=== PATIENT | female | born 1945 | race Caucasian/White ===

== ENCOUNTER → 2017-09-21 08:34 | Outpatient (CLI) | payer MEDICARE, OTHER, SELFPAY ==
[2017-09-21 10:15] LABS: Cholesterol 142 mg/dL (200); High Density Lipoprotein 41 mg/dL; Thyroid Stim Hormone (TSH) 2.22 uIU/mL (0.358-3.74); Triglycerides 114 mg/dL; Very Low Density Lipoprotein 23 mg/dL (5-40)
== END ==
PROVIDERS: Family Provider Family Medicine; PCP Family Medicine; Visit Provider Family Medicine
DX: E03.9 Hypothyroidism, unspecified (principal); E78.00 Pure hypercholesterolemia, unspecified
CPT/HCPCS: 36415; 80061; 84443

== ENCOUNTER → 2017-10-31 08:16 | Outpatient (CLI) | payer MEDICARE, OTHER, SELFPAY ==
--- NOTE | 2017-10-31 08:16 | DT_ITS ---
This patient was seen during an EMR downtime October 31, 2017 - November 07, 2017. This patient may have a combination of paper and electronic documentation or all paper documentation. All documentation is viewable within the e-chart portion of [facility] for each patient visit.
[2017-11-06 04:31] LABS: Cholesterol 142 mg/dL (200); High Density Lipoprotein 39 mg/dL; Triglycerides 118 mg/dL; Very Low Density Lipoprotein 24 mg/dL (5-40)
== END ==
PROVIDERS: Family Provider Family Medicine; PCP Family Medicine; Visit Provider Family Medicine
DX: E78.00 Pure hypercholesterolemia, unspecified (principal)
CPT/HCPCS: 36415; 80061

== ENCOUNTER → 2017-11-02 11:47 | Outpatient (CLI) | payer MEDICARE, OTHER, SELFPAY ==
--- NOTE | 2017-11-02 11:47 | RAD_ITS ---
STUDY: X-RAY - LEFT ANKLE REASON FOR EXAM: Female, 72 years old. Lateral ankle pain and bruising. Recent fall. TECHNIQUE: 3 view(s) of the ankle. COMPARISON: None. FINDINGS: Normal visualized distal tibia and fibula. Normal medial and lateral malleoli. Normal tibiotalar articulation and ankle mortise. Normal visualized talus and calcaneus. There is evidence of osseous densities along the lateral aspect of the talus and calcaneus without obvious fracture. The visualized subtalar, talonavicular, calcaneocuboid and tarsal articulations are normal. There is marked lateral soft tissue swelling extending into the hindfoot. RAD/Ankle min 3 Views IMPRESSION: Lateral soft tissue swelling of the ankle. There are bony densities along the lateral aspect of the hindfoot and avulsions cannot BE completely ruled out. Electronically Signed: Robert Keenan DO at 15:42 EDT Tel [phone], Service support ,
--- NOTE | 2017-11-02 11:47 | DT_ITS ---
This patient was seen during an EMR downtime October 31, 2017 - November 07, 2017. This patient may have a combination of paper and electronic documentation or all paper documentation. All documentation is viewable within the e-chart portion of [facility] for each patient visit.
== END ==
PROVIDERS: Family Provider Family Medicine; PCP Family Medicine; Visit Provider Family Medicine
DX: S93.402S Sprain of unspecified ligament of left ankle, sequela (principal)
CPT/HCPCS: 73610

== ENCOUNTER → 2018-05-16 12:54 | Outpatient (CLI) | payer MEDICARE, OTHER, SELFPAY ==
[2018-05-04 15:59] VITALS: BMI 27.6
--- NOTE | 2018-05-16 12:56 | ECHODONC_ITS ---
Reason For Study: HTN Procedure This was a 2D Doppler, Color Flow transthoracic echocardiogram. Myocardial strain analysis was performed in this exam to aid in the assessment of cardiac function. Exam performed in department. Left Ventricle Normal LV size. Left ventricular systolic function is normal. The estimated ejection fraction is 65 %. Normal diastology for age. The global longitudinal strain is normal. The global longitudinal strain = -24.6 % (normal). No regional wall motion abnormalities noted. Right Ventricle Normal RV size. Normal systolic function. Atria Normal left atrium. Normal right atrium. Mitral Valve Normal mitral valve. Mild (1+) eccentric mitral valve insufficiency. Tricuspid Valve Normal tricuspid valve. Mild (1+) tricuspid valve insufficiency. Aortic Valve Normal aortic valve. Trisinus/trileaflet aortic valve. Pulmonic Valve Normal pulmonic valve. Great Vessels Normal aortic root. The pulmonary artery is normal size. Normal inferior vena cava. Pericardium/Pleural No pericardial effusion. MMode/2D Measurements & Calculations LVIDd: 4.4 cm IVSd: 0.88 cm Ao root diam: 3.8 cm LVIDs: 2.8 cm LVPWd: 0.86 cm RVDd: 3.2 cm FS: 35.3 % LAV(MOD-bp): 66.7 ml LVAd ap4: 28.9 cm2 EDV(MOD-sp2): 95.2 ml LAV(MOD-bp) Indexed: 34.1 ml/m2 EDV(MOD-sp4): 94.2 ml EF(MOD-sp2): 60.0 % LAV(MOD-sp2): 67.7 ml EDV(sp4-el): 86.3 ml LAV(MOD-sp4): 65.5 ml LVAs ap4: 15.6 cm2 ESV(MOD-sp4): 33.1 ml ESV(sp4-el): 34.3 ml EF(MOD-sp4): 64.9 % EF(sp4-el): 60.2 % SV(MOD-sp4): 61.2 ml SV(MOD-sp2): 57.1 ml SV(sp4-el): 52.0 ml LA dimension(2D): 3.8 cm LA A4 area: 22.3 cm2 RA A4 area: 13.7 cm2 Time Measurements MV dec time: 0.39 sec Doppler Measurements & Calculations MV E max jean: 97.5 cm/sec Lat Peak E' Jean: 11.3 cm/sec Med Peak E' Jean: 6.7 cm/sec MV A max jean: 89.9 cm/sec E/E' lat: 8.6 E/E' med: 14.5 MV E/A: 1.1 LV V1 max: 120.9 cm/sec PA V2 max: 90.4 cm/sec TR max jean: 260.9 cm/sec LV V1 max P.8 mmHg TR max P.3 mmHg Interpretation Summary Normal LV size. Left ventricular systolic function is normal. The estimated ejection fraction is 65 %. Normal diastology for age. Mild (1+) tricuspid valve insufficiency. The global longitudinal strain = -24.6 % (normal). Ordering Physician: Dimitri Morales Referring Physician: NOLAN SMITH Performed By: Airam Smith RDCS, RVT
--- OUTSIDE RECORDS SUMMARY | 2018-08-17 23:02 | XMS RPT_ITS ---
:1945 Author Organization OHIP Support Name Relationship Address Phone AFIA CARDOZA Unavailable [address] + [place] [address] R Unavailable Unavailable Unavailable NANI, AFIA Unavailable [address] + [place] [address] R Unavailable Unavailable Unavailable NANI, AFIA Unavailable [address] + [place] [address] R Unavailable Unavailable Unavailable NANI, AFIA Unavailable [address] + [place] [address] R Unavailable Unavailable Unavailable NANI, AFIA Unavailable [address] + [place] [address] R Unavailable Unavailable Unavailable NAIN, AFIA Unavailable [address] + [place] [address] R Unavailable Unavailable Unavailable NANI, AFIA Unavailable [address] + [place] [address] R Unavailable Unavailable Unavailable NANI, AFIA Unavailable [address] + [place] [address] R Unavailable Unavailable Unavailable NANI, AFIA Unavailable [address] + [place] [address] R Unavailable Unavailable Unavailable NANI, AFIA Unavailable [address] + [place] [address] R Unavailable Unavailable Unavailable NANI, AFIA Unavailable [address] + [place] [address] R Unavailable Unavailable Unavailable NANI, AFIA Unavailable [address] + [place] [address] R Unavailable Unavailable Unavailable NANI, AFIA Unavailable [address] + [place] [address] R Unavailable Unavailable Unavailable Care Team Providers Name Role Phone ISCKARUS, MANSOUR Referring Unavailable Carmen, Ramona Attending Unavailable Carmen, Dimitri Referring Unavailable Kahn, Nolan Primary Care Unavailable Carmen, Ramona Attending Unavailable Carmen, Dimitri Referring Unavailable Judah, Vanda Attending Unavailable Kahn, Nolan Referring Unavailable Isckarus, Mansour Attending Unavailable Kahn, Nolan Primary Care Unavailable Kahn, Nolan Referring Unavailable Isckarus, Mansour Attending Unavailable Kahn, Nolan Referring Unavailable Kahn, Nolan Primary Care Unavailable Isckarus, Mansour Consulting Unavailable Rob Veronica Attending Unavailable Kahn, Nolan Referring Unavailable Kahn, Nolan Primary Care Unavailable Kahn, Nolan Attending Unavailable Kahn, Nolan Primary Care Unavailable Kahn, Nolan Attending Unavailable Kahn, Nolan Referring Unavailable Kahn, Nolan Primary Care Unavailable Kahn, Nolan Attending Unavailable Kahn, Nolan Primary Care Unavailable Isckarus, Mansour Attending Unavailable Kahn, Nolan Referring Unavailable Kahn, Nolan Primary Care Unavailable Isckarus, Mansour Consulting Unavailable Carmen, Ramona Attending Unavailable Kahn, Nolan Referring Unavailable Carmen, Dimitri Attending Unavailable Kahn, Nolan Referring Unavailable Kahn, Nolan Primary Care Unavailable Judah, Vanda Attending Unavailable Kahn, Nolan Referring Unavailable Kahn, Nolan Primary Care Unavailable PROBLEMS PROBLEMS DATE TYPE CONDITION / CODE ATTENDING STATUS SOURCE 06/19/2018 Unknown Z78.0 - Asymptomatic [place], Vanda Active [facility] menopausal state / Community Z78.0(ICD-10) Hospital Repository 05/04/2018 Unknown R00.2 - Palpitations Carmen, Ramona Active [facility] / R00.2(ICD-10) Community Hospital Repository 05/04/2018 Unknown I10 - Essential Carmen, Ramona Active [facility] (primary) Community hypertension / Hospital I10(ICD-10) Repository 05/04/2018 Unknown C50.511 - Malignant Carmen, Dimitri Active [place] neoplasm of [facility] lower-outer quadrant Hospital of right female Repository breast / C50.511(ICD-10) 02/09/2018 Unknown C50.911 - Malignant Isckarus, Active [place] [facility] right female breast Repository / C50.911(ICD-10) 11/23/2017 Unknown S93.402S - Sprain of Nolan Kahn Active [place] unspecified ligament Community of left ankle, Hospital sequela / Repository S93.402S(ICD-10) 11/23/2017 Unknown E78.00 - Pure Nolan Kahn Active [place] hypercholesterolemia Community , unspecified / Hospital E78.00(ICD-10) Repository 09/21/2017 Unknown E03.9 - Femi, Nolan Active [facility] Hypothyroidism, Community unspecified / Hospital E03.9(ICD-10) Repository 07/28/2017 Active Unknown / NA Active [facility](Unknown[facility] [place] Repository 06/13/2017 Unknown Z01.419 - Encounter [place] Active [place] for gynecological [facility] examination [facility] (general) (routine) Repository without abnormal findings / Z01.419(ICD-10) 06/13/2017 Unknown M85.80 - Other JudahVanda quiñones Active [place] specified disorders Community of bone density and Hospital structure, Repository unspecified site / M85.80(ICD-10) 06/13/2017 Unknown N95.2 - Vanda So Active [place] Postmenopausal Community atrophic vaginitis / Hospital N95.2(ICD-10) Repository 05/05/2017 Unknown Z17.0 - Estrogen Carmen, Dimitri Active [facility] receptor positive Community status [ER+] / Hospital Z17.0(ICD-10) Repository PROCEDURES PROCEDURES No Procedure Records FoundRESULTS RESULTS 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 [address] [place] [address] OFFICE VISIT Date of Service: 06/19/18 MR#: [id number] Acct: [id number] Name: LUCILLE CARDOZA Eliz Rep #: [id number] : 1945 Provider: LIYAH So Age/Sex: 72/F [place] [facility] [place]: Signed Intake Vital Signs06/19/18 Body Mass Index (BMI) 27.6 06/19/18 Height 5 ft 8 in 06/19/18 Weight: 183 lb 8 oz 06/19/18 Body Mass Index (BMI) 27.8 06/19/18 Blood Pressure 144/86 H Intake Visit Reasons: ANNUAL Bacon Skin Lifter Required: No Is patient in pain?: No Allergies Sulfa (Sulfonamide Antibiotics) Adverse Reaction (Severe, Verified 06/19/18 10:15) Nausea/Vom/Diarrhea Medications Levothyroxine Sodium [Levoxyl] 50 mcg PO DAILY 08/25/16 [History Confirmed 06/19/18] Multivitamin [Multiple Vitamins] 1 tab PO DAILY 08/25/16 [History Confirmed 06/19/18] B-complex with vitamin C tablet 1 tab PO QDAY 05/05/17 [History Confirmed 06/19/18] calcium carbonate-vitamin D3 1,000 mg (2,500 mg)-800 unit tablet 1 tab PO DAILY 05/05/17 [History Confirmed 06/19/18] cholecalciferol (vitamin D3) 1,000 unit capsule 1,000 unit PO ONCE 05/05/17 [History Confirmed 06/19/18] Letrozole [Femara] 2.5 mg PO DAILY 90 Days #90 tab 06/05/18 [Rx Confirmed 06/19/18] metoprolol tartrate 50 mg tablet 50 mg PO BID #180 tab 06/05/18 [Rx Confirmed 06/19/18] Is last menstrual period known: No Post menopausal: Yes Patient : No : No PFSH Medical History Hyperlipidemia (Chronic) Palpitations (Chronic) History of paroxysmal supraventricular tachycardia (Chronic) 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 (Chronic) HTN (hypertension) (Chronic) Osteopenia (Chronic) Left ankle sprain (Acute) Surgical History H/O lumpectomy (Acute) Family History Mother CVA (cerebral vascular accident) Father Dementia Social History Smoking Status: Never smoker alcohol intake: current details: social substance use type: does not use caffeine: Yes what type of physical activity do you participate in: walking, weight training frequency: 3-4 times per week seatbelt use: always do you feel safe at home: Yes 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 DateName GA/Weeks Outcome Route Bth WeighInfant GeLabor LgtAnesthesiDel LocatProvider FOB t n h a n HPI ANNUAL: Details: LUCILLE CARDOZA is a 72 year old who presents for annual exam. History of abnormal PAP: no Last mammogram: scheduled in July per oncologist History of abnormal mammogram: breast cancer right 2009;lumpectomy with chemo and radiation, on femara Colon cancer screening: less then 10 years BMD 2017 worsening osteopenia, will order Female Reproductive History Questions: Metorrhagia: No, Sexually active: No, Dyspareunia: No, PCB: No ROS Const Constitutional: Denies fatigue, weight gain or weight loss Cardio Card: Denies chest pain Resp Resp: Denies cough or shortness of breath with activity GI GI: Denies abdominal pain, constipation, change in stools, vomiting or bloating : Reports as per HPI; denies urinary frequency, pelvic pain, urinary urgency, vaginal discharge, vaginal itching, urinary incontinence or difficulty urinating Exam Const General: cooperative, healthy appearing, no acute distress, well developed Orientation: alert, oriented to person, oriented to place HENWV Head: normal to inspection Neck Neck: normal visual inspection Thyroid: thyroid normal Lymphatic: no lymphadenopathy noted Chest Breast inspection: normal inspection of the breasts, normal inspection of the axillae Breast palpation: normal palpation of the breasts, normal palpation of the axillae, no axillary lymphadenopathy Resp Effort AND Inspection: normal respiratory effort GI Palpation: soft, nontender, no masses Rectal Exam: deferred External Female Exam: normal external appearance, normal appearance of the urethra (slightly dilated. No caruncle) Urethra: normal appearance of the urethra (slightly dilated. No caruncle), normal palpation Speculum Exam - Vagina: normal vaginal discharge, atrophic vaginal mucosa Speculum Exam - Cervix: normal appearance of the cervix Bimanual Exam- Vagina AND Uterus: normal bimanual exam, uterine size normal, uterine shape normal, uterus non-tender Bimanual Exam- Adnexa, other: normal adnexae, no adnexal masses, adnexae non-tender, pelvic support normal Pelvic Support: normal Neuro General: alert, oriented x3 Psych Affect: normal affect Assessment AND Plan Problems 1. Encounter for gynecological examination with abnormal finding Z01.411 2. Atrophic vaginitis N95.2 3. Osteopenia, unspecified location M85.80 4. 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 Orders Orders: Coding Level of Care Code Pelvic/Breast Diagnoses Encounter for gynecological examination with abnormal finding Z01.411 Gynecological examination findings: abnormal findings PRESENT Atrophic vaginitis N95.2 Osteopenia, unspecified location M85.80 Osteopenia location: unspecified Malignant neoplasm of lower-outer quadrant of right 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, estrogen receptor positive C50.511 Breast location: lower outer quadrant of breast Estrogen receptor status: positive 06/19/18 1058 <Electronically signed by Vanda DE SOUZA> Date Vanda DE SOUZA Cosigner Signature: Date (if applicable) CC: ONC ECHOCARDIOGRAM Observed: 05/16/2018 Status: F Source: [place] COMPLETE 2:45 PM [facility] Cardiovascular Services [address] [place] [id number] ONC Echo Complete 05/16/18 1257 MR#: [id number] Acct: [id number] Name: LUCILLE CARDOZA Rep #: [id number] : 1945 72 From: Dimitri Morales MD Attending Dr: Dimitri Morales MD Status: REG CLI Ordering Dr: Dimitri Morales MD Date: 05/16/18 Location: [facility] Sex: F C Admitted: Reason For Study: HTN Procedure This was a 2D Doppler, Color Flow transthoracic echocardiogram. Myocardial strain analysis was performed in this exam to aid in the assessment of cardiac function. Exam performed in department. Left Ventricle Normal LV size. Left ventricular systolic function is normal. The estimated ejection fraction is 65 %. Normal diastology for age. The global longitudinal strain is normal. The global longitudinal strain = -24.6 % (normal). No regional wall motion abnormalities noted. Right Ventricle Normal RV size. Normal systolic function. Atria Normal left atrium. Normal right atrium. Mitral Valve Normal mitral valve. Mild (1+) eccentric mitral valve insufficiency. Tricuspid Valve Normal tricuspid valve. Mild (1+) tricuspid valve insufficiency. Aortic Valve Normal aortic valve. Trisinus/trileaflet aortic valve. Pulmonic Valve Normal pulmonic valve. Great Vessels Normal aortic root. The pulmonary artery is normal size. Normal inferior vena cava. Pericardium/Pleural No pericardial effusion. MMode/2D Measurements AND Calculations LVIDd: 4.4 cm IVSd: 0.88 cm Ao root diam: 3.8 cm LVIDs: 2.8 cm LVPWd: 0.86 cm RVDd: 3.2 cm FS: 35.3 % LAV(MOD-bp): 66.7 ml LVAd ap4: 28.9 cm2 EDV(MOD-sp2): 95.2 ml LAV(MOD-bp) Indexed: 34.1 ml/m2 EDV(MOD-sp4): 94.2 ml EF(MOD-sp2): 60.0 % LAV(MOD-sp2): 67.7 ml EDV(sp4-el): 86.3 ml LAV(MOD-sp4): 65.5 ml LVAs ap4: 15.6 cm2 ESV(MOD-sp4): 33.1 ml ESV(sp4-el): 34.3 ml EF(MOD-sp4): 64.9 % EF(sp4-el): 60.2 % SV(MOD-sp4): 61.2 ml SV(MOD-sp2): 57.1 ml SV(sp4-el): 52.0 ml LA dimension(2D): 3.8 cm LA A4 area: 22.3 cm2 RA A4 area: 13.7 cm2 Time Measurements MV dec time: 0.39 sec Doppler Measurements AND Calculations MV E max jean: 97.5 cm/sec Lat Peak E' Jean: 11.3 cm/sec Med Peak E' Jean: 6.7 cm/sec MV A max jean: 89.9 cm/sec E/E' lat: 8.6 E/E' med: 14.5 MV E/A: 1.1 LV V1 max: 120.9 cm/sec PA V2 max: 90.4 cm/sec TR max jean: 260.9 cm/sec LV V1 max P.8 mmHg TR max P.3 mmHg Interpretation Summary Normal LV size. Left ventricular systolic function is normal. The estimated ejection fraction is 65 %. Normal diastology for age. Mild (1+) tricuspid valve insufficiency. The global longitudinal strain = -24.6 % (normal). Ordering Physician: Dimitri Morales Referring Physician: NOLAN KAHN Performed By: Airam Smith, GM, RVT 05/16/18 1444 Date Dimitri Morales MD CC: Dimitri Morales MD; Nolan Kahn MD Date Dictated: 05/16/18 1257 Date Transcribed: 05/16/181443 Farm Labor Contractor: Signed CARDIOLOGY VISIT Observed: 05/04/2018 Status: F Source: [place] REPORT 4:29 PM [facility] RE[facility] [address] [facility] [place] [address] OFFICE VISIT Date of Service: 05/04/18 MR#: [id number] Acct: [id number] Name: LUCILLE CARDOZA Rep #: [id number] : 1945 Provider: Dimitri Morales MD Age/Sex: 72/F [place] [facility] [place]: Signed HPI HPI Chief Complaint: Follow up Details: LUCILLE CARDOZA, is a 72 F who presents to the office today for a follow-up visit. She is a lady with a history of supraventricular tachyarrhythmia, breast carcinoma status post chemotherapy and surgery. She returns for routine follow- up visit she has had no chest pain or shortness breath or paroxysmal nocturnal dyspnea or pedal edema she has had no neck arm or jaw discomfort suggest angina. She is been compliant with her medications. Her physical exam demonstrates clear lung paniagua regular rate and rhythm and no pedal edema. Intake Vital Signs05/04/18 Height 5 ft 8 in 05/04/18 Weight: 182 lb 05/04/18 Body Mass Index (BMI) 27.6 05/04/18 Blood Pressure 144/78 H 05/04/18 Blood Pressure Location Lt brachial Intake Visit Reasons: 1 Y FU Bacon Skin Lifter Required: No Accompanied by: Is patient in pain?: No Allergies Sulfa (Sulfonamide Antibiotics) Adverse Reaction (Severe, Verified 05/04/18 16:00) Nausea/Vom/Diarrhea Medications Levothyroxine Sodium [Levoxyl] 50 mcg PO DAILY 08/25/16 [History Confirmed 05/04/18] Multivitamin [Multiple Vitamins] 1 tab PO DAILY 08/25/16 [History Confirmed 05/04/18] Vit A/Vit C/Vit E/Zinc/Copper [Preservision Areds Softgel] 1 ea PO BID 08/25/16 [History Confirmed 05/04/18] B-complex with vitamin C tablet 1 tab PO QDAY 05/05/17 [History Confirmed 05/04/18] calcium carbonate-vitamin D3 1,000 mg (2,500 mg)-800 unit tablet 1 tab PO DAILY 05/05/17 [History Confirmed 05/04/18] cholecalciferol (vitamin D3) 1,000 unit capsule 1,000 unit PO ONCE 05/05/17 [History Confirmed 05/04/18] metoprolol tartrate 50 mg tablet 50 mg PO BID #180 tab 09/15/17 [Rx Confirmed 05/04/18] Rosuvastatin Calcium [Crestor] 10 mg PO DAILY 02/09/18 [History Confirmed 05/04/18] Letrozole [Femara] 2.5 mg PO DAILY #90 tab 03/20/18 [Rx Confirmed 05/04/18] coenzyme Q10 100 mg capsule 100 mg PO DAILY 05/04/18 [History Confirmed 05/04/18] pitavastatin calcium 4 mg tablet 4 mg PO DAILY 05/04/18 [History Confirmed 05/04/18] PFSH Medical History Palpitations (Chronic) History of paroxysmal supraventricular tachycardia (Chronic) 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 (Chronic) HTN (hypertension) (Chronic) Osteopenia (Chronic) Left ankle sprain (Acute) Surgical History H/O lumpectomy (Acute) Family History Mother CVA (cerebral vascular accident) Father Dementia Social History Smoking Status: Never smoker alcohol intake: current details: social substance use type: does not use caffeine: Yes frequency: 3-4 times per week seatbelt use: always do you feel safe at home: Yes 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 Const Const: Negative for fatigue, weakness, night sweats, excessive sweating, frequent falls, headache(s) or daytime sleepiness Eyes Eyes: Negative for loss of peripheral vision, transient loss of vision, blind spots, double vision or blurry vision ENT ENT: Negative for headache(s), dizziness, balance problems, Nosebleed/epistaxis, tongue swelling or lip swelling Cardio Chest Pain: No Palpitations: No Edema: None Muscle aches with walking: None Resp Respiratory: Negative for SOB at rest, SOB orthopnea\SOB lying down, Cough, paroxysmal nocturnal dyspnea or SOB with activity GI GI: Negative nausea, vomiting, heartburn, black,tarry stools or bright, red blood in stools : Negative for hematuria Musc Musc: Negative for balance problems, muscle aches/ myalgia, muscle weakness or joint pain Skin Skin: Negative non-healing lesions, unusual bruising or rash Neuro Neuro: Negative for weakness, frequent falls, headache(s), double vision, dizziness, lightheadedness, orthostatic symptoms, blurry vision or lack of coordination Enrique Hematologic/Lymphatic: Negative for easy bruising or easy bleeding Endo Endo: Negative for fatigue, excessive sweating, cold intolerance, heat intolerance, increased thirst/drinking or hair loss Psych Psych: Negative for anxiety or depression Allergy Allergy/Immunology: Negative for throat swelling, Negative for tongue swelling, Negative for hives, Negative for rash, Negative for lip swelling Cardiology Exam Const Appearance: cooperative, healthy appearing, well developed, well groomed and no acute distress Nutritional Appearance: well nourished and average body habitus Orientation: alert, awake and oriented x3 Head Head: normal to inspection, normocephalic and atraumatic Ears: hearing grossly normal bilaterally and external ears normal Nose: external nose normal, nasal mucous membranes and turbinates normal, nares normal, septum normal, no nasal discharge Face and Sinus: face symmetric Mouth: oral mucosae normal, tongue normal, oropharynx normal and moist mucous membranes Teeth and gingiva: dentition normal Throat: posterior oropharynx normal, tonsils normal and uvula midline Eyes General: appearance normal, both eyes and all related structures Eyelids: eyelids normal Conjunctivae: conjunctivae normal Pupils: PERRL, normal by confrontation and accommodation normal EOM: EOM intact bilaterally Neck Neck: normal visual inspection, trachea midline and no JVD JVD: +5 Carotids: normal carotid upstroke and bounding pulses Chest Chest inspection: normal inspection of the chest, symmetric chest movement and normal respiratory effort Auscultation: Bilateral: Clear to Auscultation Cardio Palpation: normal PMI Rate: regular rate Rhythm: regular rhythm Heart sounds: S1 normal, S2 normal and normal, physiologic split S2; negative rub, gallop or murmur GI GI: normal to inspection, soft, no hepatosplenomegaly and bowel sounds present Neuro General: alert, awake, oriented x3, no focal sensory deficit, gait normal and moves all extremities Skin Skin: no rashes or lesions noted Extremities Pulses: Normal: Right Femoral Pulse, Left Femoral Pulse, Right Dorsalis Pedis Pulse, Left Dorsalis Pedis Pulse, Right Posterior Tibial Pulse, Left Posterior Tibial Pulse, Right Radial Pulse, Left Radial Pulse Lower Extremity Edema: None: Bilateral Musculoskel Musculoskeletal: No joint tenderness Psych Psychological: normal affect Assessment AND Plan 1. Essential hypertension I10 Plan She does have a history of hypertension which appears to be fairly well controlled. My recommendation be for her to continue to monitor her blood pressure carefully. If it is noted to be elevated we may need to start her on an NURA inhibitor or ARB. 2. 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 completed herceptin, on femara Plan She does have a previous history of right breast lumpectomy with chemo and radiation my recommendation will be for her to obtain an echocardiogram to assess her left ventricular function with global strain analysis. Thank you for allowing me to participate in the care of your patient. Please don't hesitate to call if any issues arise Plan Detail Other Orders Orders: Follow Up 1 Year (surg nurse) Coding Level of Care Code Off vis,est,level 3 Diagnoses Essential hypertension I10 Hypertension type: essential hypertension Malignant neoplasm of lower-outer quadrant of right 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, estrogen receptor positive C50.511 Breast location: lower outer quadrant of breast Estrogen receptor status: positive Coding Level of Care Code Off vis,est,level 3 Diagnoses Essential hypertension I10 Hypertension type: essential hypertension Malignant neoplasm of lower-outer quadrant of right 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, estrogen receptor positive C50.511 Breast location: lower outer quadrant of breast Estrogen receptor status: positive 05/04/18 1629 <Electronically signed by Dimitri Morales MD> Date Dimitri Morales MD Cosigner Signature: Date (if applicable) CC: Nolan Kahn MD MARKETING DEVELOPER OFFICE VISIT Observed: 04/13/2018 Status: F Source: [place] REPORT 3:28 PM [facility] [address] [place] [address] OFFICE VISIT Date of Service: 06/13/17 MR#: [id number] Acct: [id number] Name: LUCILLE CARDOZA Rep #: [id number] : 1945 Provider: LIYAH So Age/Sex: 71/F Location: [facility] [place] Status: Signed with Addenda ADDENDUM by LIYAH So on 04/13/18 at 1528 Addendum entered and electronically signed by NOLVIA Schneider 04/13/18 15:28: Rectal exam was deferred. No masses palpated Assessment AND Plan 1. 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 completed herceptin, on femara Awa - NOLVIA Schneider Follows with oncology and surgeon. Scheduled next month. Continues on femara 3. Osteopenia, unspecified location M85.80 Plan - NOLVIA Schneider Plan repeat BMD next year 4. Atrophic vaginitis N95.2 Plan - NOLVIA Schneider Asymptomatic, chronic. 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) Chief Complaint: est annual Bacon Skin Lifter Required: No Is patient in pain?: No Allergies Sulfa (Sulfonamide Antibiotics) Adverse Reaction (Verified 06/13/17 10:57) Unknown Medications Levothyroxine Sodium [Levoxyl] 50 mcg PO DAILY 08/25/16 [History Confirmed 06/13/17] Metoprolol Tartrate [Lopressor (Beta Cecilio)] 50 mg PO BID 08/25/16 [History Confirmed 06/13/17] Multivitamin [Multiple Vitamins] 1 tab PO DAILY 08/25/16 [History Confirmed 06/13/17] Vit A/Vit C/Vit E/Zinc/Copper [Preservision Areds Softgel] 1 ea PO BID 08/25/16 [History Confirmed 06/13/17] Letrozole [Femara] 2.5 mg PO DAILY #90 tab 02/28/17 [Rx Confirmed 06/13/17] B-complex with vitamin C tablet 1 tab PO QDAY 05/05/17 [History Confirmed 06/13/17] calcium carbonate-vitamin D3 1,000 mg (2,500 mg)-800 unit tablet tab PO 05/05/17 [History Confirmed 06/13/17] cholecalciferol (vitamin D3) 1,000 unit capsule 1,000 unit PO ONCE 05/05/17 [History Confirmed 06/13/17] Is last menstrual period known: No Post menopausal: Yes Patient : No : No Pregancy History 5 Elective abortions Hx Para 3 Spontaneous abortions Past Pregnancies Del. DateName GA/Weeks Outcome Route Bth WeighInfant GeLabor LgtAnesthesiDel LocatProvider FOB t n h a n PFSH Medical History Palpitations (Chronic) History of paroxysmal supraventricular tachycardia (Chronic) 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 (Chronic) HTN (hypertension) (Chronic) Osteopenia (Chronic) Surgical History H/O lumpectomy (Acute) Family History Mother CVA (cerebral vascular accident) Father Dementia Social History Smoking Status: Never smoker alcohol intake: current details: social substance use type: does not use caffeine: Yes frequency: 3-4 times per week seatbelt use: always do you feel safe at home: Yes 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 No tax intern concerns. 5th grandchild born recently. Improving sciatica/saw Dr. Lott History of abnormal PAP: no Last mammogram: 1 yr ago History of abnormal mammogram: right breast cancer 2010 lumpectomy, radiation and chemo Colon cancer screening: up to date ROS Const Constitutional: Denies fatigue, weight gain or weight loss Cardio Card: Denies chest pain Resp Resp: Denies cough or shortness of breath with activity GI GI: Denies abdominal pain, constipation, change in stools, vomiting or bloating : Reports as per HPI; denies urinary frequency, pelvic pain, urinary urgency, vaginal discharge, vaginal itching, urinary incontinence or difficulty urinating Exam Const General: cooperative, healthy appearing, no acute distress, well developed Orientation: alert, oriented to person, oriented to place [facility] Head: normal to inspection Neck Neck: normal visual inspection Thyroid: thyroid normal Lymphatic: no lymphadenopathy noted Chest Chest palpation AND inspection: normal inspection of the chest Resp Effort AND Inspection: normal respiratory effort GI Palpation: soft, nontender, no masses Rectal Exam: mass, deferred External Female Exam: normal external appearance Urethra: other (dilated without carumcle) Speculum Exam - Vagina: normal vaginal discharge, atrophic vaginal mucosa Speculum Exam - Cervix: normal appearance of the cervix (stenotic, pale) Bimanual Exam- Vagina AND Uterus: normal bimanual exam, uterine size normal, uterine shape normal, uterus non-tender Bimanual Exam- Adnexa, other: normal adnexae, no adnexal masses, adnexae non-tender, pelvic support normal Pelvic Support: normal Neuro General: alert, oriented x3 Psych Affect: normal affect Assessment AND Plan 1. 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 completed herceptin, on femara Plan Follows with oncology and surgeon. Scheduled next month. Continues on femara 3. Osteopenia, unspecified location M85.80 Plan Plan repeat BMD next year 4. Atrophic vaginitis N95.2 Plan Asymptomatic, chronic. Defer estrogen 06/13/17 1143 <Electronically signed by Vanda DE SOUZA> Date Vanda DE SOUZA Cosigner Signature: Date (if applicable) CC: ONCOLOGY VISIT REPORT Observed: 02/09/2018 Status: F Source: [place] 3:58 PM [facility] REPOSIT[facility] [address] [place] [id number] OFFICE VISIT Date of Service: 02/09/18 1525 MR#: [id number] Acct: [id number] Name: LUCILLE CARDOZA Eliz Rep #: [id number] : 1945 From: Phi Arrieta MD Age/Sex: 72/F Location: [facility] Status: Signed - Problem List (1) 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 Status: Chronic Qualifiers: Breast location: lower outer quadrant of breast Estrogen receptor status: positive Qualified Code(s): C50.511 - Malignant neoplasm of lower-outer quadrant of right female breast; C50.511 - Malignant neoplasm of lower-outer quadrant of right female breast; C50.511 - Malignant neoplasm of lower-outer quadrant of right female breast; C50.511 - Malignant neoplasm of lower-outer quadrant of right female breast; Z17.0 - Estrogen receptor positive status [ER+]; Z17.0 - Estrogen receptor positive status [ER+] Comment: 2009 right lumpectomy: chemo and radiation. completed herceptin, on femara (2) Osteopenia Status: Chronic Qualifiers: - Date of Service Date of Service:: 02/09/18 - Chief Complaint Breast cancer - History of Present Illness Patient is a 72-year-old female seen in follow-up for his stage II ER/FL , HER-2 positive cancer of the right breast status post lumpectomy and sentinel lymph node biopsy followed by axillary lymph node dissection 2009 followed by 6 cycles of TCH 1 year maintenance of Herceptin loaded July 2010. She received adjuvant radiation therapy to the remaining part of the right breast concluded January 2010. She received hormonal therapy with letrozole November 2009 through July 2016 then resumed February 2017-(advised for 10 years) - Past Medical/Social History Past Medical History Past Medical History: Thyroid disease Other Past Medical History: Irregular heart beat Macular Degeneration Cancer: Breast cancer Past Surgical History Surgical: Breast Other Surgical History: Right Lumpectomy Family History Paternal Past Medical History: Unknown Maternal Past Medical History: Stroke Social History Smoking Status Never smoker Review of Systems Constitutional:: Reports: - - No hot flashes. Denies: Fever, Sweats, Weight loss, Appetite change, Chills Cardiovascular:: Denies: Chest pain, Palpitations, Dyspnea on exertion, Orthopnea, PND, Shortness of breath Respiratory: Denies: Cough, Hemoptysis, Shortness of Breath, Wheezing Gastrointestinal:: Denies: Abdominal pain, Nausea, Vomiting, Diarrhea, Constipation, Hematochezia Genitourinary: Denies: Dysuria, Hematuria, 15, Flank pain Musculoskeletal:: Reports: - - Injured left ankle accidentally October 2017, still recovering. Denies: Back pain, Myalgia, Arthralgia Skin: Denies: Rash, Skin Changes, Wounds Neurological:: Denies: Headache, Dizziness, Visual changes, Tinnitus, Hearing loss Psychiatric: Denies: Anxiety, Depression, Homicidal Ideations, Suicidal Ideations Vital Signs Height 5 ft 8 in Weight: 81.193 kg Weight in Pounds 179.0 lbs Pulse Ox 97 - Physical Exam General: Alert, Oriented x3, No apparent distress HEENT: Atraumatic, PERRLA, EOMI, Normocephalic Oropharynx:: Dry mucosa Neck:: Supple, Trachea midline. Negative for: JVD, bilateral Cardiac:: Regular rate, Regular rhythm, Normal S1, Normal S2. Negative for: Murmur Lungs: Clear to auscultation, Excusion symmetrical. Negative for: Rhonchi, Wheezes Abdomen:: Soft, Non-tender, Non-distended. Negative for: Hepatosplenomegaly Extremities:: Negative for: Cyanosis, Edema Neurological: Neuro grossly intact Skin:: Negative for: Lesions, Rash, Petechiae, Ecchymosis Psychiatric:: Appropriate affect, Euthymic Lymphatics:: Negative for: Cervical lymphadenopathy, Supraclavicular lymphadenopathy, Axillary lymphadenopathy Breast:: - - Deferred, done by MD's twice this year Diagnostic Data: Mammogram June 2017 no suspicious abnormalities (verbal report as per patient) Assessment and Plan 72-year-old female with 1- Stage IIa (T1c, N1, M0) ER positive HER-2 positive invasive ductal cancer of the right breast status post partial mastectomy with sentinel lymph node biopsy followed by formal axillary dissection at which 2 out of 21 lymph nodes were positive for metastatic cancer. Surgery was in 2009 followed by adjuvant TCH for a total of 6 cycles then adjuvant Herceptin concluded 1 year of therapy July 2010. Patient received adjuvant radiation therapy to the remaining part of the right breast concluded January 2010. She received letrozole between November 2009 through July 2016, resumed February 2017 to conclude 10 Y of therapy. Joint aches was the main side effect experienced. 2- Osteopenia, post menopause and due to AI therapy. Bone density 2016 showed worsening despite Vit D and Ca 2+ supplement. Advise adding Prolia/6M and follow-up bone density in 2019. Patient concerned about potential side effects and did not consent for the time being. Medications: Prescriptions This Visit Medication Instructions Recorded Levothyroxine Sodium [Levoxyl] 50 mcg PO DAILY 08/25/16 Primary Care Provider: Nolan Kahn Referring Provider: Nolan Kahn 02/09/18 1558 <Electronically signed by Phi Arrieta MD> Date Phi rArieta MD Cosigner Signature: Date (if applicable) CC: Nolan Kahn MD DOWNTIME REPORT Observed: 11/17/2017 Status: F Source: [place] 1:23 PM [facility] Medical Records Department [address] [place] [address] Downtime Report MR#: [id number] Acct: [id number] Name: LUCILLE CARDOZA Rep #: [id number] : 1945 72 From: Ranjit Walsh PCP: Femi ULLOA,Nolan Status: REG CLI This patient was seen during an EMR downtime October 31, 2017 - November 07, 2017. This patient may have a combination of paper and electronic documentation or all paper documentation. All documentation is viewable within the e-chart portion of [facility] for each patient visit. DOWNTIME REPORT Observed: 11/17/2017 Status: F Source: [place] 12:10 PM [facility] Medical Records Department [address] [place] [address] Downtime Report MR#: [id number] Acct: [id number] Name: LUCILLE CARDOZA Rep #: [id number] : 1945 72 From: Ranjit Walsh PCP: Femi ULLOA,Nolan Status: REG CLI This patient was seen during an EMR downtime October 31, 2017 - November 07, 2017. This patient may have a combination of paper and electronic documentation or all paper documentation. All documentation is viewable within the e-chart portion of [facility] for each patient visit. ANKLE MIN 3 VIEWS Observed: 11/02/2017 Status: F Source: [place] 3:15 PM [facility] Imaging Services [address] [place] [address] Ankle min 3 Views MR#: [id number] Acct: [id number] Name: LUCILLE CARDOZA Rep #: [id number] : 1945 F 72 From: Robert Keenan DO PCP: Nolan Kahn MD Status: REG CLI Study: Ankle min 3 Views Date of Exam: 11/02/17 Exam# [id number] Ordering Dr: Nolan Kahn MD STUDY: X-RAY - LEFT ANKLE REASON FOR EXAM: Female, 72 years old. Lateral ankle pain and bruising. Recent fall. TECHNIQUE: 3 view(s) of the ankle. COMPARISON: None. FINDINGS: Normal visualized distal tibia and fibula. Normal medial and lateral malleoli. Normal tibiotalar articulation and ankle mortise. Normal visualized talus and calcaneus. There is evidence of osseous densities along the lateral aspect of the talus and calcaneus without obvious fracture. The visualized subtalar, talonavicular, calcaneocuboid and tarsal articulations are normal. There is marked lateral soft tissue swelling extending into the hindfoot. RAD/Ankle min 3 Views IMPRESSION: Lateral soft tissue swelling of the ankle. There are bony densities along the lateral aspect of the hindfoot and avulsions cannot BE completely ruled out. 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 TYPE CODE TESTS RESULT OUT OF RANGE REFERENCE UNITS LAB L501.4900 200 mg/dL Normal CHOL 142 Result Comment: <200 mg/dL Desirable 200-240 mg/dL Borderline >240 mg/dL High Risk LAB L501.5000 mg/dL Normal TRIG 118 Result Comment: The drugs N-Acetylcysteine and Metamizole may falsely depress this assay. Serum Triglycerides Reference Interval Normal <150 mg/dL Borderline high 150 - 199 mg/dL High 200 - 499 mg/dL Very High > or = 500 mg/dL LAB L501.6400 mg/dL Low HDL 39 Result Comment: The drugs N-Acetylcysteine and Metamizole may falsely depress this assay. Reference Range HDL <40 mg/dL Low HDL Cholesterol HDL >or= 60 mg/dL High HDL Cholesterol LAB L501.6500 0-130 mg/dL Normal LDL 79 LAB L501.6600 5-40 mg/dL Normal VLDL 24 Performed By: #### L500.4100 #### [facility] [address] [place], [place], [id number] LIPID PROFILE Collected: 09/21/2017 Status: F Source: [place] 8:35 AM [facility] REPOS[facility] TYPE CODE TESTS RESULT OUT OF RANGE REFERENCE UNITS LAB L501.4900 200 mg/dL Normal CHOL 142 Result Comment: <200 mg/dL Desirable 200-240 mg/dL Borderline >240 mg/dL High Risk LAB L501.5000 mg/dL Normal TRIG 114 Result Comment: The drugs N-Acetylcysteine and Metamizole may falsely depress this assay. Serum Triglycerides Reference Interval Normal <150 mg/dL Borderline high 150 - 199 mg/dL High 200 - 499 mg/dL Very High > or = 500 mg/dL LAB L501.6400 mg/dL Normal HDL 41 Result Comment: The drugs N-Acetylcysteine and Metamizole may falsely depress this assay. Reference Range HDL <40 mg/dL Low HDL Cholesterol HDL >or= 60 mg/dL High HDL Cholesterol LAB L501.6500 0-130 mg/dL Normal LDL 78 LAB L501.6600 5-40 mg/dL Normal VLDL 23 Performed By: #### L500.4100, L501.9520 #### [facility] [address] [facility] [place], [place], [id number] THYROID STIM HORMONE Collected: 09/21/2017 Status: F Source: [place] (TSH) 8:35 AM [facility] REPOSIT[facility] TYPE CODE TESTS RESULT OUT OF RANGE REFERENCE UNITS LAB L501.9520 0.358-3.74 uIU/mL Normal TSH 2.22 Performed By: #### L500.4100, L501.9520 #### [facility] [address] [place], [address] SURGERY VISIT REPORT Observed: 08/09/2017 Status: F Source: [place] 5:04 PM [facility] REPOSIT[facility] [address] [place] [address] OFFICE VISIT Date of Service: 08/09/17 MR#: [id number] Acct: [id number] Name: LUCILLE CARDOZA Rep #: [id number] : 1945 Provider: Rob Veronica MD Age/Sex: 72/F Location: [facility] Status: Signed Intake Intake Visit Reasons: F/U MAMMO3/05/2017 @ [facility], PATIENT BRINGING DISC Chief Complaint: Breast cancer Bacon Skin Lifter Required: No Is patient in pain?: No Allergies Sulfa (Sulfonamide Antibiotics) Adverse Reaction (Severe, Verified 08/09/17 15:35) Nausea/Vom/Diarrhea Medications Levothyroxine Sodium [Levoxyl] 50 mcg PO DAILY 08/25/16 [History Confirmed 08/09/17] Metoprolol Tartrate [Lopressor (Beta Cecilio)] 50 mg PO BID 08/25/16 [History Confirmed 08/09/17] Multivitamin [Multiple Vitamins] 1 tab PO DAILY 08/25/16 [History Confirmed 08/09/17] Vit A/Vit C/Vit E/Zinc/Copper [Preservision Areds Softgel] 1 ea PO BID 08/25/16 [History Confirmed 08/09/17] Letrozole [Femara] 2.5 mg PO DAILY #90 tab 02/28/17 [Rx Confirmed 08/09/17] B-complex with vitamin C tablet 1 tab PO QDAY 05/05/17 [History Confirmed 08/09/17] calcium carbonate-vitamin D3 1,000 mg (2,500 mg)-800 unit tablet 1 tab PO DAILY 05/05/17 [History Confirmed 08/09/17] cholecalciferol (vitamin D3) 1,000 unit capsule 1,000 unit PO ONCE 05/05/17 [History Confirmed 08/09/17] PFSH Medical History Palpitations (Chronic) History of paroxysmal supraventricular tachycardia (Chronic) 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 (Chronic) HTN (hypertension) (Chronic) Osteopenia (Chronic) Surgical History H/O lumpectomy (Acute) Family History Mother CVA (cerebral vascular accident) Father Dementia Social History Smoking Status: Never smoker alcohol intake: current details: social substance use type: does not use caffeine: Yes frequency: 3-4 times per week seatbelt use: always do you feel safe at home: Yes 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 She is now 8 years out. On July 02, 2009 I performed breast conservation surgery for her. Outer mid right breast I resected a 1.5 cm invasive ductal carcinoma. 1 out of 16 lymph nodes were positive. Her most recent imaging that was performed at the [facility] on July 28, 2017 showed no evidence of malignancy. Postoperative changes of the right mid breast noted but unchanged from previously. BI-RADS Category 2. These films were compared to 2017 and 2016 and 2015. She has no specific complaints today. She has no nipple discharge. No tenderness. No palpable masses. No shortness of breath. No unexpected weight loss. Exam Chest Other: Healed outer mid right breast incision with central soft tissue loss and retraction dimpling which is been chronic. Well-healed right axillary incision. No focal mass. Diffuse fibrous change noted. No nipple discharge. No axillary or clavicular adenopathy. Left breast is diffusely fibrous. No focal mass. No nipple discharge. No axillary or clavicular adenopathy. Resp Effort AND Inspection: normal respiratory effort Auscultation: clear to auscultation bilaterally Cardio Rate: regular rate Rhythm: regular rhythm GI Inspection: normal to inspection Palpation: soft, no hepatosplenomegaly Assessment AND Plan Problems 1. Malignant neoplasm of lower-outer quadrant of right 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, estrogen receptor positive C50.511 Plan I am not detecting any focal recurrent as of her outer mid right breast cancer. Her clinical exam remains stable. She has had an opportunity to ask and have questions answered. I am screening mammography at 1 year. Surgical follow-up certainly can pursue at that time. He certainly welcome to see her in return sooner if there is a change in her progress. cc:Dr Arrieta and Dr Augustin Veronica M.D., F.A.C.S. Coding Level of Care Code Off vis,est,level 2 Diagnoses Malignant neoplasm of lower-outer quadrant of right 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, estrogen receptor positive C50.511 Breast location: lower outer quadrant of breast Estrogen receptor status: positive 08/09/17 1704 <Electronically signed by Rob Veronica MD> Date Rob Veronica MD Cosigner Signature: Date (if applicable) CC: Nolan Kahn MD; Phi Arrieta MD ONCOLOGY VISIT REPORT Observed: 08/04/2017 Status: F Source: [place] 4:01 PM [facility] REPOSIT[facility] [address] [place] [address] OFFICE VISIT Date of Service: 08/04/17 1522 MR#: [id number] Acct: [id number] Name: LUCILLE CARDOZA Rep #: [id number] : 1945 From: Phi Arrieta MD Age/Sex: 72/F Location: [facility] Status: Signed - Problem List (1) 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 Status: Chronic Qualifiers: Breast location: lower outer quadrant of breast Estrogen receptor status: positive Qualified Code(s): C50.511 - Malignant neoplasm of lower-outer quadrant of right female breast; C50.511 - Malignant neoplasm of lower-outer quadrant of right female breast; C50.511 - Malignant neoplasm of lower-outer quadrant of right female breast; C50.511 - Malignant neoplasm of lower-outer quadrant of right female breast; Z17.0 - Estrogen receptor positive status [ER+]; Z17.0 - Estrogen receptor positive status [ER+] Comment: 2009 right lumpectomy: chemo and radiation. completed herceptin, on femara (2) Osteopenia Status: Chronic Qualifiers: - Date of Service Date of Service:: 08/04/17 - Chief Complaint Breast cancer - History of Present Illness Patient is a 72-year-old female seen in follow-up for his stage II ER/FL , HER-2 positive set of the right breast status post lumpectomy and sentinel lymph node biopsy followed by axillary lymph node dissection 2009 followed by 6 cycles of TCH 1 year maintenance of Herceptin loaded July 2010. She received adjuvant radiation therapy to the remaining part of the right breast concluded January 2010. She received hormonal therapy with letrozole November 2009 through July 2016 then resumed February 2017. - Past Medical/Social History Past Medical History Past Medical History: Thyroid disease Other Past Medical History: Irregular heart beat Macular Degeneration Cancer: Breast cancer Past Surgical History Surgical: Breast Other Surgical History: Right Lumpectomy Family History Paternal Past Medical History: Unknown Maternal Past Medical History: Stroke Social History Smoking Status Never smoker Review of Systems Constitutional:: Reports: - - No hot flashes. Denies: Fever, Sweats, Weight loss, Appetite change, Chills Cardiovascular:: Denies: Chest pain, Palpitations, Dyspnea on exertion, Orthopnea, PND, Shortness of breath Respiratory: Denies: Cough, Hemoptysis, Shortness of Breath, Wheezing Gastrointestinal:: Denies: Abdominal pain, Nausea, Vomiting, Diarrhea, Constipation, Hematochezia Genitourinary: Denies: Dysuria, Hematuria, 15, Flank pain Musculoskeletal:: Reports: Arthritis - Chronic degenerative joint disease a bit worse on Femara but manageable, Back pain - Chronic back pain and sciatica has good days and bad days, Arthralgia. Denies: Myalgia Skin: Denies: Rash, Skin Changes, Wounds Neurological:: Denies: Headache, Dizziness, Visual changes, Tinnitus, Hearing loss Psychiatric: Denies: Anxiety, Depression, Homicidal Ideations, Suicidal Ideations Vital Signs Height 5 ft 8 in Weight: 78.6 kg Weight in Pounds 173.3 lbs Pulse Ox 98 - Physical Exam General: Alert, Oriented x3, No apparent distress, - - ECOG 0-1 HEENT: Atraumatic, PERRLA, EOMI, Normocephalic Oropharynx:: Dry mucosa Neck:: Supple, Trachea midline. Negative for: JVD, bilateral Cardiac:: Regular rate, Regular rhythm, Normal S1, Normal S2. Negative for: Murmur Lungs: Clear to auscultation, Excusion symmetrical. Negative for: Rhonchi, Wheezes Abdomen:: Bowel sounds x 4, Soft, Non-tender, Non-distended. Negative for: Hepatosplenomegaly Extremities:: Negative for: Cyanosis, Edema Neurological: Neuro grossly intact Skin:: Negative for: Lesions, Rash, Petechiae, Ecchymosis Psychiatric:: Appropriate affect, Euthymic Lymphatics:: Negative for: Cervical lymphadenopathy, Supraclavicular lymphadenopathy, Axillary lymphadenopathy Laboratory Data: Reviewed in EMR, CBC CMP unremarkable Diagnostic Data: Had her annual mammogram July 2017 at [facility]. Was told no abnormalities noted. Report requested Bone density 2017 shows worsening bone loss and osteopenia Assessment and Plan 72-year-old female with 1- Stage IIa (T1c, N1, M0) ER positive HER-2 positive invasive ductal cancer of the right breast status post partial mastectomy with sentinel lymph node biopsy followed by formal axillary dissection at which 2 out of 21 lymph nodes were positive for metastatic cancer. Surgery was in 2009 followed by adjuvant TCH for a total of 6 cycles then adjuvant Herceptin concluded 1 year of therapy July 2010. Patient received adjuvant radiation therapy to the remaining part of the right breast concluded January 2010. She received letrozole between November 2009 through July 2016, resumed February 2017 to conclude 10 Y of therapy. Joint aches was the main side effect experienced. 2- Osteopenia, post menopause and due to AI therapy. Bone density 2017 showed worsening despite Vit D and Ca 2+ supplement. Advise adding Xgeva and follow- up bone density in 2019. Patient is due to see the dentist in September 2017 will get clearance for treatment at that time given educational material about the role of Xgeva and treating bone loss. Medications: Prescriptions This Visit Medication Instructions Recorded Levothyroxine Sodium [Levoxyl] 50 mcg PO DAILY 08/25/16 Metoprolol Tartrate [Lopressor 50 mg PO BID 08/25/16 (Beta Cecilio)] Primary Care Provider: Nolan Kahn Referring Provider: Nolan Kahn 08/04/17 1601 <Electronically signed by Phi Arrieta MD> Date Phi Arrieta MD Cosigner Signature: Date (if applicable) CC: Nolan Kahn MD CBC W/DIFF, AUTOMATED Collected: 08/04/2017 Status: F Source: [facility] 3:15 PM [facility] Order Comment: Reason for Laboratory Test ROUTINE OFFICE VISIT TYPE CODE TESTS RESULT OUT OF RANGE REFERENCE UNITS LAB L100.1000 4.4-11.0 K/mm3 Normal WBC 5.9 LAB L100.1200 4.2-5.4 M/mm3 Normal RBC 4.39 LAB L100.1300 12.0-15.0 g/dl Normal HGB 13.2 LAB L100.1400 37-47 % Normal HCT 39.7 LAB L100.1500 81-99 fL Normal MCV 90.4 LAB L100.1600 27.0-32.0 pg Normal MCH 30.1 LAB L100.1700 32-36 g/gl Normal MCHC 33.2 LAB L100.1810 11.6-14.6 % Normal RDW CV 12.8 LAB L100.1820 35.1-43.9 fl Normal RDW SD 41.8 LAB L100.1900 150-450 K/mm3 Normal PLT 250 LAB L100.2000 6.2-12.0 fl Normal MPV 8.9 LAB L100.2100 47-70 % Normal NEUT% 56.6 LAB L100.2200 19-41 % Normal LY% 25.9 LAB L100.2300 0-10 % High MONO% 12.3 LAB L100.2400 0-5 % Normal EO% 4.1 LAB L100.2500 0-1 % Normal BASO% 0.9 LAB L100.2550 0.0-0.9 % Normal IM GRAN % 0.200 Result Comment: IG% - Immature Granulocytes (promyelocytes, myelocytes and metamyelocytes) > 1% indicates that a LEFT SHIFT is Present. LAB L100.2620 2.0-7.7 X10 3/uL Normal Absolute Neut 3.3 LAB L100.2720 0.83-4.51 X10 3/ul Normal Absolute Lymph 1.52 Performed By: #### L100.0100, L500.4050 #### [facility] [address] [place], [address] COMPREHENSIVE METABOLIC Collected: 08/04/2017 Status: F Source: [place] 3:15 PM [facility] REPOSITORY Order Comment: Reason for Laboratory Test ROUTINE OFFICE VISIT TYPE CODE TESTS RESULT OUT OF RANGE REFERENCE UNITS LAB L501.0100 74-106 mg/dL High GLU 122 Result Comment: Fasting Glucose result from 100 to 125 mg/dL suggests IMPAIRED HOMEOSTASIS per A.D.A. criteria. Please note revised GLUCOSE reference range effective 2017. LAB L501.1000 7-18 mg/dL High BUN 20 LAB L501.1100 0.55-1.02 mg/dL Normal CREAT,SERUM 0.78 Result Comment: The validity of the calculated GFR AND GFRAA in patients over 70 years has not been determined. Clinical correlation is essential. LAB L501.1110 >60 mL/min Normal EST GFR 77 Result Comment: Non- GFR Calc LAB L501.1115 >60 mL/min Normal EST GFR - AA 93 Result Comment: GFR Calc LAB L501.1255 ml/min Normal Estimated CRCL 52.81 LAB L501.1300 10-20 RATIO High BUN/CRE 25.5 LAB L501.1500 6.4-8. g/dL Normal 2 T PROT 7.5 LAB L501.1800 3.2-5. g/dL Normal 0 ALB 3.9 LAB L501.1950 2.2-4. g/dL Normal 2 GLOB 3.6 LAB L501.2000 0.9-2. RATIO Normal 4 A/G 1.1 LAB L501.2200 8.5-10 mg/dL Normal .1 CA 8.7 LAB L501.4100 15-37 U/L Normal AST 26 LAB L501.4305 45-117 U/L Normal ALK P 93 LAB L501.4405 13-56 U/L Normal ALT 45 Result Comment: Please note revised ALT reference range effective 2017. LAB L501.4600 0.20-1.00 mg/dL Normal T BILI 0.40 LAB L501.5300 136-145 mmol/L Normal NA 140 LAB L501.5600 3.5-5.1 mmol/L Normal K 4.0 LAB L501.5900 98-107 mmol/L Normal CL 106 LAB L501.6100 21.0-32.0 mmol/L Normal CO2 28.0 LAB L501.6200 5-15 Normal GAP 6 Performed By: #### L100.0100, L500.4050 #### [facility] [address] [place], [address] CNCO Observed: 07/28/2017 Status: COMPLETED Source: [place] 11:59 AM [facility] REPOSITORY HNO ID: [id number] Author: Mammography Coordinator Service: (none) Author Type: Physician Type: Letter Filed: 08/01/2017 11:31 PM Note Text: July 28, 2017 PID: [id number] Lucille Cardoza [address] [place] [address] Dear Lila Cardoza, We are pleased to inform you that the results of your recent breast imaging exam on 07/28/2017 are normal. Early detection of cancer is very important. We also understand recommendations regarding breast cancer screening are controversial. Please discuss with your primary care provider which strategy is best for you and whether a mammogram is right for you. Your imaging studies and report will be kept on file at [facility] as part of your permanent medical record and are available for your continuing care. Thank you for allowing us to help in meeting your health care needs. Sincerely, Dr. Rodrigues Interpreting Radiologist [facility] (Normal over 40) TWIN SCREENING Observed: 07/28/2017 Status: F Source: [place] 10:47 AM [facility] REPOSITORY * * *Final Report* * * DATE OF EXAM: Jul 28 2017 10:47AM [facility] [[email or web address] 0581 - [facility] SCREENING / PROCEDURE REASON: screening * * * * Physician Interpretation * * * * RESULT: #[id number] - [facility] SCREENING BILATERAL DIGITAL SCREENING MAMMOGRAM WITH CAD: 07/28/2017 HISTORY: Screening /Patient reports NO breast symptoms /priors available for comparison. RESULT: TECHNIQUE: The study was acquired using full field digital technology and interpreted from soft copy. Current study was also evaluated with a Computer Aided Detection (CAD). Comparison is made to exams dated: 07/26/2016 mammogram, 07/23/2015 mammogram, and 07/15/2014 mammogram - [facility]. There are scattered fibroglandular elements in both breasts. There are postoperative changes in the right breast related to prior lumpectomy. No significant masses, calcifications, or other findings are seen in either breast. There has been no significant interval change. IMPRESSION: BENIGN FINDING There is no mammographic evidence of malignancy.A 1 year screening mammogram is recommended. Soraida rodriguez/gil:07/28/2017 11:59:23 Gospel Worker: Ashley AKHTAR(Gabo)(Michelle), [facility] letter sent: Normal over 40 Mammogram BI-RADS: 2 Benign finding Farm Labor Contractor: Gil Transcribe Date/Time: Jul 28 2017 10:26A Dictated by: SORAIDA RODRIGUES MD This examination was interpreted and the report reviewed and electronically signed by: SORAIDA RODRIGUES MD on Jul 28 2017 11:59AM EST [id number] PROGRESS Observed: 07/28/2017 Status: COMPLETED Source: [place] 10:26 AM [facility] REPOSITORY HNO ID: [id number] Author: Hailey Akhtar Service: (none) Author Type: (none) Type: Progress Notes Filed: 07/28/2017 10:49 AM Note Text: Radiology Service Progress Note PATIENT NAME: Lucille Cardoza DATE OF SERVICE: July 28, 2017 TIME: 10:26 AM PATIENT IDENTITY VERIFICATION COMPLETED USING TWO (2) METHODS: Patient confirmed name verbally and Date of . PATIENT GENDER DATA: Female. status: : No status: NO. PATIENT RELEVANT IMPLANT DATA REVIEWED: Not Applicable RADIOLOGY DEPARTMENT: [facility] scr mammogram PERIPHERAL IV DATA: Not applicable SIGNED BY: Hailey Akhtar July 28, 2017 10:26 AM CARDIOLOGY VISIT Observed: 07/12/2017 Status: F Source: [place] 11:12 AM [facility] REPOSITORY [place] [facility] [address] [place] [address] OFFICE VISIT Date of Service: 05/05/17 MR#: [id number] Acct: [id number] Name: LUCILLE CARDOZA Rep #: [id number] : 1945 Provider: Dimitri Morales MD Age/Sex: 71/F Location: [facility] [place] Status: Signed HPI 1 Y FU: Chief Complaint: follow up Details: LUCILLE CARDOZA, is a 71 F who presents to the office today for a follow-up visit. She is a pleasant lady with a history of supraventricular tachyarrhythmia breast carcinoma status post chemotherapy and surgery. She denies any chest pain or shortness breath or paroxysmal nocturnal dyspnea or pedal edema she has not had any palpitations no presyncope or syncope and has been compliant with all her medications. Her major problem now is really referable to her sciatica. She also had a fine-needle aspiration of her left thyroid. She would continue to follow with us. Her physical exam today demonstrates clear lung [place] regular rate and rhythm and no pedal edema. Intake Intake Visit Reasons: 1 Y FU Allergies Sulfa (Sulfonamide Antibiotics) Adverse Reaction (Verified 02/28/17 13:03) Unknown Medications Levothyroxine Sodium [Levoxyl] 50 mcg PO DAILY 08/25/16 [History Confirmed 02/28/17] Metoprolol Tartrate [Lopressor (Beta Cecilio)] 50 mg PO BID 08/25/16 [History Confirmed 02/28/17] Multivitamin [Multiple Vitamins] 1 tab PO DAILY 08/25/16 [History Confirmed 02/28/17] Vit A/Vit C/Vit E/Zinc/Copper [Preservision Areds Softgel] 1 ea PO BID 08/25/16 [History Confirmed 02/28/17] Letrozole [Femara] 2.5 mg PO DAILY #90 tab 02/28/17 [Rx] B-complex with vitamin C tablet 1 tab PO QDAY 05/05/17 [History Confirmed 05/05/17] calcium carbonate-vitamin D3 1,000 mg (2,500 mg)-800 unit tablet tab PO 05/05/17 [History Confirmed 05/05/17] cholecalciferol (vitamin D3) 1,000 unit capsule 1,000 unit PO ONCE 05/05/17 [History Confirmed 05/05/17] Ejection fraction %: 55 to 59 [facility] Medical History 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 (Chronic) HTN (hypertension) (Chronic) Osteopenia (Chronic) Social History Smoking Status: Never smoker Cardiology Exam Const Appearance: cooperative, healthy appearing, well developed, well groomed and no acute distress Nutritional Appearance: well nourished and average body habitus Orientation: alert, awake and oriented x3 Head Head: normal to inspection, normocephalic and atraumatic Ears: hearing grossly normal bilaterally and external ears normal Nose: external nose normal, nasal mucous membranes and turbinates normal, nares normal, septum normal, no nasal discharge Face and Sinus: face symmetric Mouth: oral mucosae normal, tongue normal, oropharynx normal and moist mucous membranes Teeth and gingiva: dentition normal Throat: posterior oropharynx normal, tonsils normal and uvula midline Eyes General: appearance normal, both eyes and all related structures Eyelids: eyelids normal Conjunctivae: conjunctivae normal Pupils: PERRL, normal by confrontation and accommodation normal EOM: EOM intact bilaterally Neck Neck: normal visual inspection, trachea midline and no JVD JVD: +5 Carotids: normal carotid upstroke and bounding pulses Chest Chest inspection: normal inspection of the chest, symmetric chest movement and normal respiratory effort Auscultation: Bilateral: Clear to Auscultation Cardio Palpation: normal PMI Rate: regular rate Rhythm: regular rhythm Heart sounds: S1 normal, S2 normal and normal, physiologic split S2; negative rub, gallop or murmur GI GI: normal to inspection, soft, no hepatosplenomegaly and bowel sounds present Neuro General: alert, awake, oriented x3, no focal sensory deficit, gait normal and moves all extremities Skin Skin: no rashes or lesions noted Extremities Pulses: Normal: Right Femoral Pulse, Left Femoral Pulse, Right Dorsalis Pedis Pulse, Left Dorsalis Pedis Pulse, Right Posterior Tibial Pulse, Left Posterior Tibial Pulse, Right Radial Pulse, Left Radial Pulse Lower Extremity Edema: None: Bilateral Musculoskel Musculoskeletal: No joint tenderness Psych Psychological: normal affect Assessment AND Plan 1. Essential hypertension I10; I10; I10 Plan Her blood pressure has been under good control on the metoprolol and will continue it without making any changes. Her last echocardiogram demonstrated preserved ejection fraction of 55%. No wall motion of the mellitus were noted. 2. Palpitations R00.2 Plan She has not had any recent palpitations she will continue to remain on the metoprolol. 3. Malignant neoplasm of lower-outer quadrant of right 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, estrogen receptor positive C50.511; C50.511; C50.511; C50.511; Z17.0; Z17.0 Plan As you know she had completed previous surgery adjuvant radiotherapy chemotherapy with maintenance Herceptin. Her most recent echocardiogram was performed in April 2016 with normal ejection fraction. Plan Detail Follow Up 1 Year (surg nurse) 07/12/17 1112 <Electronically signed by Dimitri Morales MD> Date Dimitri Morales MD Cosigner Signature: Date (if applicable) CC: Nolan Kahn MD ALLERGIES ALLERGIES DATE TYPE / CODE NAME / CODE REACTION SEVERITY SOURCE 06/19/2018 Drug Sulfa Nausea/Vom/Diarr SV [facility] Allergy/4160 ([facility] [address](SNOMED Antibiotics)/ Repository CT) [id number](RX NORM) 07/01/2005 Drug SULFA GI UPSET [facility] Class/578483 (SULFONAMIDE [facility] 003(SNOMED ANTIBIOTICS) Repository CT) ENCOUNTERS ENCOUNTERS ADMIT/DISCHARGE ACCOUNT ADMITTING ENCOUNTER LOCATION SOURCE NUMBER CLASS 06/19/2018/06/19/19 [id number] Ambulatory BMSBuilding:B [place] [facility] [place] Repository 05/16/2018 [id number] Ambulatory [facility] Hospital ing:[facility] Repository 05/16/2018 [id number] Ambulatory BMSBuilding:W [facility] [facility] Repository 05/04/2018/05/04/20 [id number] Ambulatory BMSBuilding:B [place] [address] [facility] Repository 02/09/2018 [id number] Ambulatory [facility] ing:[facility]D Repository 02/09/2018 [id number] Ambulatory BMS[facility] [place] [facility] 11/02/2017 [id number] Ambulatory [facility] ing:MTRAD Repository 10/31/2017 [id number] Ambulatory [facility] ing:MFPLAB Repository 09/21/2017 [id number] Ambulatory [facility] ing:MFPLAB Repository 08/09/2017/08/10/19 [id number] Ambulatory BMSBuilding:B [place] [address] [place] Repository 08/04/2017 [id number] Ambulatory BMSBuilding:B [place] [facility] Repository 07/28/2017/08/13/19 [id number] Ambulatory [address] Repository 06/13/2017/06/13/19 [id number] Ambulatory BMSBuilding:B [place] [address] [facility] Repository 05/05/2017/05/05/20 [id number] Ambulatory BMSBuilding:B [place] [address] [facility] Repository PAYERS PAYERS ENCOUNTER GUARANTOR PAYER SUBSCRIBER SOURCE 06/19/2018 AFIA Tomas Primary LUCILLE [place] [id number] [place] Insurance:MEDICARE PURDYDOB: [facility], PART [facility] [id number] [address]Xnp: Number: Repository [id number] () Date:2018-06-05 06/19/2018 Secondary LUCILLE J [place] Insurance:MEDICAL PURDYDOB: [facility] [id number] Hospital Number: Repository [id number] Date:0183-54-61[address] [address]SO: 06/19/2018 Tertiary NOT GIVENUNK [place] Insurance:SELF PAY [facility] Number: Effective Repository Date:2018-06-19 05/16/2018 AFIA Tomas Primary LUCILLE J [place] [id number] FRIAR Insurance:MEDICARE PURDYDOB: [facility], PART A [facility] [id number] [facility] [address]Jeo: Number: Repository [id number] (HP) Date:2018-05-05 05/16/2018 Secondary LUCILLE J [place] Insurance:AARPPolicy PURDYDOB: Community Number: [id number] Hospital [id number] Repository Date:3647-31-02[address], [place] [address]DZ: 05/16/2018 Tertiary NOT GIVENUNK [place] Insurance:SELF PAY [facility] Number: Effective Repository Date:2018-05-05 05/16/2018 AFIA Tomas Primary LUCILLE J [place] [id number] [place] Insurance:MEDICARE PURDYDOB: [facility], PART A [facility] [id number] [facility]iatric [facility] [address]Dly: Number: Repository [id number] (HP) Date:2018-05-05 05/16/2018 Secondary ULCILLE J [place] Insurance:AARPPolicy PURDYDOB: Community Number: [id number] Hospital [id number] Repository Date:8192-96-52LZ [address], [place] [address]XQ: 05/16/2018 Tertiary NOT GIVENUNK [place] Insurance:SELF PAY [facility] Number: Effective Repository Date:2018-05-16 05/04/2018 Afia Tomas Primary LUCILLE J [place] [id number] FRIAR Insurance:MEDICARE PURDYDOB: [facility], PART A [facility] [id number] [facility]iatric [facility] [address]Vkn: Number: Repository [id number] (HP) Date:2017-05-05 05/04/2018 Secondary LUCILLE J [place] Insurance:AARPPolicy PURDYDOB: Community Number: [id number] Hospital [id number] Repository Date:2259-25-83QZ [address], [place] [address]UY: 05/04/2018 Tertiary NOT GIVENUNK [place] Insurance:SELF PAY [facility] Number: Effective Repository Date:2018-05-04 02/09/2018 Afia Tomas Primary LUCILLE J [place] [id number] FRIAR Insurance:MEDICARE PURDYDOB: [facility], PART A [facility] [id number] [facility]iatric [facility] [address]Epe: Number: Repository [id number] () Date:2012-05-30 02/09/2018 Secondary LUCILLE J [place] Insurance:AARPPolicy PURDYDOB: [facility] Number: [id number] Hospital [id number] Repository Date:0546-23-80[address], [place] [address]YV: 02/09/2018 Tertiary NOT GIVENUNK [place] Insurance:SELF PAY [facility] Number: Effective Repository Date:2017-02-04 02/09/2018 Afia Tomas Primary LUCILLE J [place] [id number] FRIAR Insurance:MEDICARE PURDYDOB: [facility], PART A [facility] [id number] [facility]iatric [facility] [address]Qkp: Number: Repository [id number] () Date:2012-05-30 02/09/2018 Secondary LUCILLE J [place] Insurance:AARPPolicy PURDYDOB: Community Number: [id number] Hospital [id number] Repository Date:8918-89-76[address], [place] [address]IX: 02/09/2018 Tertiary NOT GIVENUNK [place] Insurance:SELF PAY [facility] Number: Effective Repository Date:2018-02-09 11/02/2017 Afia L Primary LUCILLE J [place] [id number] [place] Insurance:MEDICARE PURDYDOB: [facility], PART A [facility] [id number] Psychiatric Center [address]Ihv: Number: Repository [id number] (HP) Date:2017-11-02 11/02/2017 Secondary LUCILLE J [place] Insurance:AARPPolicy PURDYDOB: Community Number: [id number] Hospital [id number] Repository Date:5781-24-27HE [facility] [address], [place] [address]MO: 11/02/2017 Tertiary NOT GIVENUNK [place] Insurance:SELF PAY [facility] Number: Effective Repository Date:2017-11-02 10/31/2017 Afia Tomas Primary LUCILLE J [place] [id number] [place] Insurance:MEDICARE PURDYDOB: [facility], PART A [facility] [id number] Psychiatric Center [address]Qwm: Number: Repository [id number] (HP) Date:2017-10-31 10/31/2017 Secondary LUCILLE J [place] Insurance:AARPPolicy PURDYDOB: Community Number: [id number] Hospital [id number] Repository Date:7462-41-01FF [facility] [address], [place] [address]RA: 10/31/2017 Tertiary NOT GIVENUNK [place] Insurance:SELF PAY [facility] Number: Effective Repository Date:2017-10-31 09/21/2017 Afia Tomas Primary LUCILLE J [place] [id number] [place] Insurance:MEDICARE PURDYDOB: [facility], PART A [facility] [id number] Psychiatric Center [address]Cbr: Number: Repository [phone] [id number] (HP) Date:2017-09-21 09/21/2017 Secondary LUCILLE J [place] Insurance:AARPPolicy PURDYDOB: Community Number: [id number] Hospital [id number] Repository Date:4719-21-01KZ [facility] [address], [place] [address]AY: 09/21/2017 Tertiary NOT GIVENUNK [place] Insurance:SELF PAY [facility] Number: Effective Repository Date:2017-09-21 08/09/2017 Afai Tomas Primary LUCILLE [place] [id number] [place] Insurance:MEDICARE PURDYDOB: [facility], PART A [facility] [id number] Psychiatric Center [address]Bkq: Number: Repository [phone] [id number] (HP) Date:2017-07-29 08/09/2017 Secondary LUCILLE J [place] Insurance:AARPPolicy PURDYDOB: Community Number: [id number] Hospital [id number] Repository Date:6931-16-51TD [facility] [place], [place] [address]IP: 08/09/2017 Tertiary NOT GIVENUNK [place] Insurance:SELF PAY [facility] Number: Effective Repository Date:2017-07-29 08/04/2017 Afia Tomas Primary LUCILLE J [place] [id number] [place] Insurance:MEDICARE PURDYDOB: [facility], PART A [facility] [id number] [address]Tel: Number: Repository [phone] [id number] (HP) Date:2012-05-30 08/04/2017 Secondary LUCILLE J [place] Insurance:AARPPolicy PURDYDOB: Community Number: [id number] Hospital [id number] Repository Date:2275-05-89[address], [place] [address]HM: 08/04/2017 Tertiary NOT GIVENUNK [place] Insurance:SELF PAY [facility] Number: Effective Repository Date:2017-08-04 06/13/2017 Afia Tomas Primary LUCILLE J [place] [id number] [place] Insurance:MEDICARE PURDYDOB: [facility], PART A [facility] [id number] [facility]iatric [facility] [address]Qix: Number: Repository [phone] [id number] (HP) Date:2017-06-02 06/13/2017 Secondary LUCILLE J [place] Insurance:AARPPolicy PURDYDOB: Community Number: [id number] Hospital [id number] Repository Date:0094-52-50[address], [place] [address]UI: 06/13/2017 Tertiary NOT GIVENUNK [place] Insurance:SELF PAY [facility] Number: Effective Repository Date:2017-06-02 05/05/2017 Afia Tomas Primary LUCILLE J [place] [id number] [place] Insurance:MEDICARE [facility] [id number] Hospital [place] [address]Tip: Number: Repository [phone] [id number] () Date:2017-04-30 05/05/2017 Secondary LUCILLE J [place] Insurance:AARPPolicy PURDYDOB: Community Number: [id number] Hospital [id number] Repository Date:0057-30-29[address], [place] [address]ZB: 05/05/2017 Tertiary NOT GIVENUNK [place] Insurance:SELF PAY [facility] Number: Effective Repository Date:2017-04-30
== END ==
PROVIDERS: Family Provider Family Medicine; PCP Family Medicine; Referring Provider Internal Medicine Cardiovascular Disease; Visit Provider Internal Medicine Cardiovascular Disease
DX: R00.2 Palpitations (principal)
CPT/HCPCS: 0399T; 93306

== ENCOUNTER → 2018-08-22 12:20 | Outpatient (CLI) | payer MEDICARE, OTHER, SELFPAY ==
[2018-05-04 15:59] VITALS: BMI 27.6
[2018-06-19 10:39] VITALS: BMI 27.6
--- NOTE | 2018-08-22 12:29 | BI_ITS ---
MAMMOGRAPHY - BILATERAL SCREENING REASON FOR EXAM: Female, 73 years old. Routine annual screening examination. PERTINENT HISTORY: Personal history of breast cancer. Prior right lumpectomy and radiation therapy. TECHNIQUE: Digital bilateral breast speedy (3D mammographic acquisition) in the CC and MLO projections. 2-D mediolateral oblique (MLO) and craniocaudad (CC) views of both breasts were obtained. CAD: Full Field Digital Mammography with Computer Added Detection was performed. COMPARISON: Comparison is made with prior abdomen examination dated July 28, 2017. FINDINGS: Breast Composition: The breasts are heterogeneously dense, which may obscure small masses. There are no dominant masses or suspicious calcifications. Stable architectural distortion and breast deformity in the deep upper lateral portion of the right breast. This is in keeping with the patient's history of prior lumpectomy and radiation treatment. Stable appearance of the benign appearing right axillary lymph nodes.. No other significant abnormalities are identified. There has been no significant change since the prior study. BI/SCREENING MAMM (CAD), BILAT IMPRESSION: Stable bilateral screening mammogram. Yearly follow-up mammogram recommended. (A) ASSESSMENT CATEGORY: BIRADS Category 2: Benign. A letter regarding these results will be sent to the patient by the facility within 30 days. Approximately 10% of breast cancers are not detected by mammography. A normal mammogram should not delay biopsy of a clinically suspicious abnormality. [id number] Electronically Signed: Torsten Izaguirre, at 14:01 EDT , Service support ,
--- NOTE | 2018-08-22 13:03 | BD_ITS ---
STUDY: DUAL ENERGY X-RAY ABSORPTIOMETRY / DXA REASON FOR EXAM: Female, 73 years old. The patient is postmenopausal. Loss of height. TECHNIQUE: Bone Mineral Density (BMD) measurements of lumbar spine and bilateral hips were obtained. COMPARISON: Comparison is made with prior study dated August 18, 2016. FINDINGS: Lumbar Spine (L1-L4): g/cm2 (1.003) / T-score (-1.6) / Z-score (0.0) Findings are suggestive of osteopenia with a moderate fracture risk. Left Femur Total: g/cm2 (0.839) / T-score (-1.3) / Z-score (0.2) Left Femoral Neck: g/cm2 (0.858) / T-score (-1.3) / Z-score (0.4) Right Femur Total: g/cm2 (0.915) / T-score (-0.7) / Z-score (0.8) Right Femoral Neck: g/cm2 (0.894) / T-score (-1.0) / Z-score (0.7) The T-Scores on the most recent prior examination were: Lumbar Spine (L1-L4): There has been worsening of bone density since the previous examination. Left Femur Total: which represents a worsening of 6.2%. Right Femur Total: which represents an improvement of 2.2%. BD/Dexa Bone Density Study IMPRESSION: The patient is considered osteopenic as outlined below according to World Mathieu Organization (WHO) criteria with a moderate fracture risk. There has been worsening of bone density since the previous examination. Reference Information: The T-score is the number of standard deviations above or below the standard which is normal for young adults at their peak bone mineral density. The World Health Organization (WHO) interprets the T-scores as follows: Above -1 Normal bone density Between -1 and -2.5 Osteopenia Equal to / or below -2.5 Osteoporosis As a practical clinical guideline, osteopenia may be graded as follows: Mild -1 through -1.5 Moderate -1.6 through -2.0 Severe -2.1 through -2.4 The Z-score is the number of standard deviations above or below age-matched controls. A Z-score of less than -1.5 would be considered abnormal. References: 1. NIH Osteoporosis and Related Bone Diseases http://www.osteo.org 2. International Society for Clinical Densitometry http://www.iscd.org 3. National Osteoporosis Foundation http://www.nof.org Electronically Signed: Torsten Izaguirre, at 13:37 EDT , Service support ,
== END ==
PROVIDERS: Family Provider Family Medicine; PCP Family Medicine; Visit Provider Nurse Practitioner Women's Health
DX: Z12.31 Encounter for screening mammogram for malignant neoplasm of breast (principal); Z78.0 Asymptomatic menopausal state; Z85.3 Personal history of malignant neoplasm of breast; Z92.3 Personal history of irradiation
CPT/HCPCS: 77063; 77067; 77080

== ENCOUNTER → 2019-10-19 12:19 | Outpatient (CLI) | payer MEDICARE, OTHER, SELFPAY ==
[2019-07-02 13:36] VITALS: BMI 28.5
--- NOTE | 2019-10-19 12:21 | BI_ITS ---
MAMMOGRAPHY - BILATERAL SCREENING REASON FOR EXAM: Female, 74 years old. Routine annual screening examination. PERTINENT HISTORY: Personal history of breast cancer. Prior right lumpectomy and radiation treatment. TECHNIQUE: Digital bilateral breast rony (3D mammographic acquisition) in the CC and MLO projections. 2-D mediolateral oblique (MLO) and craniocaudad (CC) views of both breasts were obtained. CAD: Full Field Digital Mammography with Computer Added Detection was performed. COMPARISON: Comparison is made with prior examination of August 22, 2018. FINDINGS: Breast Composition: The breasts are heterogeneously dense, which may obscure small masses. There are no dominant masses or suspicious calcifications. Once again, there is evidence of a stable architectural distortion and deformity of the upper outer aspect of the right breast due to prior lumpectomy. No mass lesion or cluster microcalcification is seen. No other significant abnormalities are identified. There has been no significant change since the prior study. BI/SCREEN MAMM (CAD) W/RONY BILAT IMPRESSION: Stable bilateral screening mammogram. Yearly follow-up mammogram recommended. (A) ASSESSMENT CATEGORY: BIRADS Category 2: Benign. A letter regarding these results will be sent to the patient by the facility within 30 days. Approximately 10% of breast cancers are not detected by mammography. A normal mammogram should not delay biopsy of a clinically suspicious abnormality. [id number] Electronically Signed: Torsten Izaguirre, at 12:41 EDT , Service support ,
== END ==
PROVIDERS: PCP Family Medicine; Referring Provider Internal Medicine Hematology & Oncology; Visit Provider Internal Medicine Hematology & Oncology
DX: Z12.31 Encounter for screening mammogram for malignant neoplasm of breast (principal); Z85.3 Personal history of malignant neoplasm of breast
CPT/HCPCS: 77063; 77067

== ENCOUNTER → 2020-03-04 15:00 | Outpatient (CLI) | payer MEDICARE, OTHER, SELFPAY ==
[2020-03-04 14:35] VITALS: BMI 28.4
[2020-03-04 18:04] LABS: Absolute Lymphocyte Count 1.74 X10^3/uL (0.83-4.51); Absolute Neutrophil Count 3.4 X10^3/uL (2.0-7.7); Basophil# 0.08 X10^3/uL; Basophil% 1.3 % (0-1); Eosinophil# 0.22 X10^3/uL; Eosinophils% 3.6 % (0-5); Hematocrit 40.7 % (37-47); Hemoglobin 13.5 g/dL (12.0-15.0); Lymphocyte # 1.74 X10^3/ul (4.0); Lymphocyte % 28.3 % (19-41); Mean Corp Hgb Conc 33.2 g/dL (32-36); Mean Corpuscular Hgb 30.6 pg (27.0-32.0); Mean Corpuscular Volume 92.3 fL (81-99); Mean Platelet Vol. 9.4 fl (6.2-12.0); Monocyte# 0.74 X10^3/uL; Monocyte% 12.1 % (0-10); NRBC Flagged by Analyzer 0 % (0-5); Neutrophil # 3.35 X10^3/uL (2.7-7.7); Neutrophil % 54.5 % (47-70); Platelet Count 282 K/mm3 (150-450); RBC Distribution Width CV 12.6 % (11.6-14.6); RBC Distribution Width SD 42.8 fl (35.1-43.9); Red Blood Count 4.41 M/mm3 (4.2-5.4); White Blood Count 6.1 K/mm3 (4.4-11.0)
[2020-03-04 18:16] LABS: AST(SGOT) 22 U/L (15-37); Alanine Aminotransfer ALT/SGPT 36 U/L (13-56); Albumin, Serum 3.7 g/dL (3.2-5.0); Alkaline Phosphatase 93 U/L (45-117); Anion Gap 5 (5-15); BUN 17 mg/dL (7-18); Calcium,Total 8.5 mg/dL (8.5-10.1); Chloride 105 mmol/L (98-107); Cholesterol 218 mg/dL (200); Creatinine, Serum 0.77 mg/dL (0.55-1.02); EST Glomerular Filtration Rate 78 mL/min (>60); Est Glom Filt Rate - Afr Amer 94 mL/min (>60); Globulin 3.7 g/dL (2.2-4.2); Glucose 86 mg/dL (74-106); High Density Lipoprotein 46 mg/dL; Potassium 4.2 mmol/L (3.5-5.1); Protein, Total 7.4 g/dL (6.4-8.2); Sodium Level 136 mmol/L (136-145); Thyroid Stim Hormone (TSH) 2.13 uIU/mL (0.358-3.74); Triglycerides 225 mg/dL; Very Low Density Lipoprotein 45 mg/dL (5-40)
== END ==
PROVIDERS: PCP Internal Medicine; Referring Provider Internal Medicine; Visit Provider Internal Medicine
DX: I10 Essential (primary) hypertension (principal); E78.5 Hyperlipidemia, unspecified; E03.9 Hypothyroidism, unspecified
CPT/HCPCS: 36415; 80053; 80061; 84443; 85025

== ENCOUNTER → 2020-10-21 09:13 | Outpatient (CLI) | payer MEDICARE, OTHER, SELFPAY ==
[2020-07-07 12:57] VITALS: BMI 26.9
--- NOTE | 2020-10-21 09:18 | BI_ITS ---
MAMMOGRAPHY - BILATERAL SCREENING REASON FOR EXAM: Female, 75 years old. Routine annual screening examination. PERTINENT HISTORY: Personal history of breast cancer. Prior right lumpectomy with chemotherapy and radiation therapy. TECHNIQUE: Digital bilateral breast rony (3D mammographic acquisition) in the CC and MLO projections. 2-D mediolateral oblique (MLO) and craniocaudad (CC) views of both breasts were obtained. CAD: Full Field Digital Mammography with Computer Added Detection was performed. COMPARISON: Comparison is made with prior study dated 10/19/2019 and 08/22/2018. FINDINGS: Breast Composition: The breasts are heterogeneously dense, which may obscure small masses. There are no dominant masses or suspicious calcifications. Once again, the patient is status post lumpectomy in the deep upper outer aspect of the right breast. This is incomplete with patient''s history of prior lumpectomy. No other significant abnormalities are identified. There has been no significant change since the prior study. BI/SCRN MAMM (CAD)W/RONY BILAT IMPRESSION: Stable bilateral screening mammogram. Yearly follow-up mammogram recommended. (A) ASSESSMENT CATEGORY: BIRADS Category 2: Benign. A letter regarding these results will be sent to the patient by the facility within 30 days. Approximately 10% of breast cancers are not detected by mammography. A normal mammogram should not delay biopsy of a clinically suspicious abnormality. [id number] Electronically Signed: Torsten Izaguirre MD at 10:42 EDT , Service support ,
--- NOTE | 2020-10-21 09:20 | BD_ITS ---
STUDY: DUAL ENERGY X-RAY ABSORPTIOMETRY / DXA REASON FOR EXAM: Female, 75 years old. h/o osteopenia -- OSTEOPENIA TECHNIQUE: Bone Mineral Density (BMD) measurements of lumbar spine and bilateral hips were obtained. COMPARISON: Comparison is made with prior study dated 08/22/2018. FINDINGS: Lumbar Spine (L1-L4): g/cm2 (1.160) / T-score (-0.1) / Z-score (1.6) Findings are suggestive of normal bone density with a low fracture risk. Left Femur Total: g/cm2 (0.851) / T-score (-1.2) / Z-score (0.4) Left Femoral Neck: g/cm2 (0.856) / T-score (-1.3) / Z-score (0.5) Right Femur Total: g/cm2 (0.856) / T-score (-1.2) / Z-score (0.4) Right Femoral Neck: g/cm2 (0.836) / T-score (-1.5) / Z-score (0.4) The T-Scores on the most recent prior examination were: Lumbar Spine (L1-L4): There has been improvement of bone density since the previous examination. Left Femur Total: which represents an improvement of 1.4%. Right Femur Total: which represents a worsening of 6.4%. BD/Dexa Bone Density Study IMPRESSION: The patient is considered osteopenic as outlined below according to World Mathieu Organization (WHO) criteria with a low fracture risk. There has been improvement of bone density since the previous examination. Reference Information: The T-score is the number of standard deviations above or below the standard which is normal for young adults at their peak bone mineral density. The World Health Organization (WHO) interprets the T-scores as follows: Above -1 Normal bone density Between -1 and -2.5 Osteopenia Equal to / or below -2.5 Osteoporosis As a practical clinical guideline, osteopenia may be graded as follows: Mild -1 through -1.5 Moderate -1.6 through -2.0 Severe -2.1 through -2.4 The Z-score is the number of standard deviations above or below age-matched controls. A Z-score of less than -1.5 would be considered abnormal. References: 1. NIH Osteoporosis and Related Bone Diseases www osteo.org 2. International Society for Clinical Densitometry www iscd.org 3. National Osteoporosis Foundation www nof.org Electronically Signed: Torsten Izaguirre MD at 15:14 EDT , Service support ,
== END ==
PROVIDERS: PCP Internal Medicine; Referring Provider Nurse Practitioner Women's Health; Visit Provider Nurse Practitioner Women's Health
DX: Z12.31 Encounter for screening mammogram for malignant neoplasm of breast (principal); M85.89 Other specified disorders of bone density and structure, multiple sites; Z78.0 Asymptomatic menopausal state
CPT/HCPCS: 77063; 77067; 77080

== ENCOUNTER → 2021-03-13 10:43 | Outpatient (CLI) | payer MEDICARE, OTHER, SELFPAY ==
[2021-03-13 12:05] LABS: Absolute Lymphocyte Count 1.12 X10^3/uL (0.83-4.51); Absolute Neutrophil Count 2.6 X10^3/uL (2.0-7.7); Basophil# 0.07 X10^3/uL; Basophil% 1.6 % (0-1); Eosinophil# 0.14 X10^3/uL; Eosinophils% 3.2 % (0-5); Hematocrit 41.7 % (37-47); Hemoglobin 13.7 g/dL (12.0-15.0); Lymphocyte # 1.12 X10^3/ul (0.83-4.51); Lymphocyte % 25.4 % (19-41); Mean Corp Hgb Conc 32.9 g/dL (32-36); Mean Corpuscular Hgb 30.5 pg (27.0-32.0); Mean Corpuscular Volume 92.9 fL (81-99); Mean Platelet Vol. 9.3 fl (6.2-12.0); Monocyte# 0.47 X10^3/uL; Monocyte% 10.7 % (0-10); NRBC Flagged by Analyzer 0 % (0-5); Neutrophil % 58.9 % (47-70); Platelet Count 261 K/mm3 (150-450); RBC Distribution Width CV 12.7 % (11.6-14.6); RBC Distribution Width SD 43.6 fl (35.1-43.9); Red Blood Count 4.49 M/mm3 (4.2-5.4); White Blood Count 4.4 K/mm3 (4.4-11.0)
[2021-03-13 12:24] LABS: ALB/GLOB Ratio 0.9 RATIO (0.9-2.4); AST(SGOT) 26 U/L (15-37); Alanine Aminotransfer ALT/SGPT 35 U/L (13-56); Albumin, Serum 3.6 g/dL (3.2-5.0); Alkaline Phosphatase 85 U/L (45-117); Anion Gap 3 (5-15); BUN 16 mg/dL (7-18); BUN/Creat Ratio 18.5 RATIO (10-20); Chloride 104 mmol/L (98-107); Cholesterol 260 mg/dL (200); Creatinine, Serum 0.86 mg/dL (0.55-1.02); EST Glomerular Filtration Rate 68 mL/min (>60); Est Glom Filt Rate - Afr Amer 83 mL/min (>60); Glucose 94 mg/dL (74-106); High Density Lipoprotein 46 mg/dL; Potassium 4.2 mmol/L (3.5-5.1); Protein, Total 7.6 g/dL (6.4-8.2); Sodium Level 137 mmol/L (136-145); Thyroid Stim Hormone (TSH) 2.31 uIU/mL (0.358-3.74); Triglycerides 141 mg/dL; Very Low Density Lipoprotein 28 mg/dL (5-40)
== END ==
PROVIDERS: PCP Internal Medicine; Referring Provider Physician Assistant; Visit Provider Physician Assistant
DX: I10 Essential (primary) hypertension (principal); E03.9 Hypothyroidism, unspecified; E78.5 Hyperlipidemia, unspecified; M85.80 Other specified disorders of bone density and structure, unspecified site
CPT/HCPCS: 36415; 80053; 80061; 84443; 85025

== ENCOUNTER → 2021-10-22 | Outpatient (CLI) | payer MEDICARE, OTHER, SELFPAY ==
--- NOTE | 2021-10-22 09:19 | BI_ITS ---
MAMMOGRAPHY - BILATERAL SCREENING REASON FOR EXAM: Female, 76 years old. Routine annual screening examination. PERTINENT HISTORY: Personal history of breast cancer. Prior right lumpectomy with chemotherapy and radiation therapy. TECHNIQUE: Digital bilateral breast rony (3D mammographic acquisition) in the CC and MLO projections. 2-D mediolateral oblique (MLO) and craniocaudad (CC) views of both breasts were obtained. CAD: Full Field Digital Mammography with Computer Added Detection was performed. COMPARISON: Screening mammogram from 10/21/2020, 10/19/2019, 08/22/2018. FINDINGS: Breast Composition: The breasts are heterogeneously dense, which may obscure small masses. There are no dominant masses or suspicious calcifications. Stable areas of architectural distortion right breast associated with prior lumpectomy. No other significant abnormalities are identified. There has been no significant change since the prior study. BI/SCRN MAMM (CAD)W/RONY BILAT IMPRESSION: Stable bilateral screening mammogram. Yearly follow-up mammogram recommended. (A) ASSESSMENT CATEGORY: BIRADS Category 2: Benign. A letter regarding these results will be sent to the patient by the facility within 30 days. Approximately 10% of breast cancers are not detected by mammography. A normal mammogram should not delay biopsy of a clinically suspicious abnormality. [id number] Electronically Signed: Stanley James, at 17:23 EDT ,
== END | disposition home or self-care (01) ==
LOC: OPBI 09:14
PROVIDERS: PCP Internal Medicine; Visit Provider Nurse Practitioner Women's Health
DX: Z12.31 Encounter for screening mammogram for malignant neoplasm of breast (principal); Z85.3 Personal history of malignant neoplasm of breast
CPT/HCPCS: 77063; 77067

== ENCOUNTER → 2022-01-01 | Outpatient (CLI) | payer MEDICARE, OTHER, SELFPAY | END | disposition home or self-care (01) | LOC: LABSPEC 09:29 | PROVIDERS: PCP Internal Medicine; Referring Provider Physician Assistant; Visit Provider Physician Assistant | DX: U07.1 COVID-19 (principal); R05.9 Cough, unspecified | CPT/HCPCS: 87635; U0003; U0005 ==

== ENCOUNTER → 2022-03-12 | Outpatient (CLI) | payer MEDICARE, OTHER, SELFPAY ==
[2022-03-12 12:39] LABS: Absolute Lymphocyte Count 0.92 X10^3/uL (0.83-4.51); Absolute Neutrophil Count 2.3 X10^3/uL (2.0-7.7); Basophil# 0.05 X10^3/uL; Basophil% 1.3 % (0-1); Eosinophil# 0.16 X10^3/uL; Eosinophils% 4.1 % (0-5); Hematocrit 40.6 % (37-47); Hemoglobin 13.4 g/dL (12.0-15.0); Lymphocyte # 0.92 X10^3/ul (0.83-4.51); Lymphocyte % 23.7 % (19-41); Mean Corpuscular Hgb 30.7 pg (27.0-32.0); Mean Corpuscular Volume 92.9 fL (81-99); Mean Platelet Vol. 9.9 fl (6.2-12.0); Monocyte# 0.49 X10^3/uL; Monocyte% 12.6 % (0-10); NRBC Flagged by Analyzer 0 % (0-5); Neutrophil # 2.26 X10^3/uL (2.7-7.7); Platelet Count 242 K/mm3 (150-450); RBC Distribution Width CV 12.9 % (11.6-14.6); Red Blood Count 4.37 M/mm3 (4.2-5.4); White Blood Count 3.9 K/mm3 (4.4-11.0)
[2022-03-12 14:00] LABS: AST(SGOT) 27 U/L (15-37); Alanine Aminotransfer ALT/SGPT 36 U/L (13-56); Albumin, Serum 3.7 g/dL (3.2-5.0); Alkaline Phosphatase 70 U/L (45-117); Anion Gap 5 (5-15); BUN 15 mg/dL (7-18); BUN/Creat Ratio 17.3 RATIO (10-20); Chloride 107 mmol/L (98-107); Cholesterol 234 mg/dL (200); Creatinine, Serum 0.87 mg/dL (0.55-1.02); EST Glomerular Filtration Rate 68 mL/min (>60); Est Glom Filt Rate - Afr Amer 82 mL/min (>60); Globulin 3.6 g/dL (2.2-4.2); Glucose 101 mg/dL (74-106); High Density Lipoprotein 48 mg/dL; Potassium 4.1 mmol/L (3.5-5.1); Protein, Total 7.3 g/dL (6.4-8.2); Sodium Level 139 mmol/L (136-145); Thyroid Stim Hormone (TSH) 2.29 uIU/mL (0.358-3.74); Triglycerides 139 mg/dL; Very Low Density Lipoprotein 28 mg/dL (5-40)
== END | disposition home or self-care (01) ==
LOC: BIMLAB 08:29
PROVIDERS: PCP Internal Medicine; Referring Provider Internal Medicine; Visit Provider Internal Medicine
DX: I10 Essential (primary) hypertension (principal); E03.9 Hypothyroidism, unspecified; E78.5 Hyperlipidemia, unspecified
CPT/HCPCS: 36415; 80053; 80061; 84443; 85025

== ENCOUNTER → 2022-10-26 | Outpatient (CLI) | payer MEDICARE, OTHER, SELFPAY ==
--- NOTE | 2022-10-26 09:22 | BI_ITS ---
MAMMOGRAPHY - BILATERAL SCREENING REASON FOR EXAM: Female, 77 years old. Routine annual screening examination. PERTINENT HISTORY: Personal history of breast cancer. Prior right lumpectomy with chemotherapy and radiation therapy. TECHNIQUE: Digital bilateral breast rony (3D mammographic acquisition) in the CC and MLO projections. 2-D mediolateral oblique (MLO) and craniocaudad (CC) views of both breasts were obtained. CAD: Full Field Digital Mammography with Computer Added Detection was performed. COMPARISON: Comparison is made with prior study October 22, 2021 and October 21, 2020. FINDINGS: Breast Composition: There are scattered areas of fibroglandular density. There are no dominant masses or suspicious calcifications. The patient is status post right mastectomy with architectural distortion in the deep upper lateral aspect of the right breast. Stable deformity of the breast as well. No other significant abnormalities are identified. There has been no significant change since the prior study. BI/SCRN MAMM (CAD)W/RONY BILAT IMPRESSION: Stable bilateral screening mammogram. Yearly follow-up mammogram recommended. (A) ASSESSMENT CATEGORY: BIRADS Category 2: Benign. A letter regarding these results will be sent to the patient by the facility within 30 days. Approximately 10% of breast cancers are not detected by mammography. A normal mammogram should not delay biopsy of a clinically suspicious abnormality. [id number] Electronically Signed: Torsten Izaguirre MD at 11:17 EDT ,
--- NOTE | 2022-10-26 09:29 | BD_ITS ---
STUDY: DUAL ENERGY X-RAY ABSORPTIOMETRY / DXA REASON FOR EXAM: Female, 77 years old. Postmenopausal TECHNIQUE: Bone Mineral Density (BMD) measurements of lumbar spine and bilateral hips were obtained. COMPARISON: Comparison is made with prior study of October 21, 2020. FINDINGS: Lumbar Spine (L1-L4): g/cm2 (1.063) / T-score (0.1) / Z-score (2.6) Findings are suggestive of normal bone density with a low fracture risk. Left Femur Total: g/cm2 (0.846) / T-score (-0.8) / Z-score (1.0) Left Femoral Neck: g/cm2 (0.747) / T-score (-0.9) / Z-score (1.2) Right Femur Total: g/cm2 (0.862) / T-score (-0.7) / Z-score (1.1) Right Femoral Neck: g/cm2 (0.758) / T-score (-0.8) / Z-score (1.3) The T-Scores on the most recent prior examination were: Lumbar Spine (L1-L4): There has been worsening of bone density since the previous examination. Left Femur Total: which represents an improvement of 7.2%. Right Femur Total: which represents an improvement of 8.5%. BD/Dexa Bone Density Study IMPRESSION: The patient is considered normal as outlined below according to World Mathieu Organization (WHO) criteria with a low fracture risk. There has been improvement of bone density since the previous examination. Reference Information: The T-score is the number of standard deviations above or below the standard which is normal for young adults at their peak bone mineral density. The World Health Organization (WHO) interprets the T-scores as follows: Above -1 Normal bone density Between -1 and -2.5 Osteopenia Equal to / or below -2.5 Osteoporosis As a practical clinical guideline, osteopenia may be graded as follows: Mild -1 through -1.5 Moderate -1.6 through -2.0 Severe -2.1 through -2.4 The Z-score is the number of standard deviations above or below age-matched controls. A Z-score of less than -1.5 would be considered abnormal. References: 1. NIH Osteoporosis and Related Bone Diseases www osteo.org 2. International Society for Clinical Densitometry www iscd.org 3. National Osteoporosis Foundation www nof.org Electronically Signed: Torsten Izaguirre MD at 14:09 EDT ,
== END | disposition home or self-care (01) ==
LOC: OPBD 09:21
PROVIDERS: PCP Internal Medicine; Referring Provider Nurse Practitioner Women's Health; Visit Provider Nurse Practitioner Women's Health
DX: Z12.31 Encounter for screening mammogram for malignant neoplasm of breast (principal); Z78.0 Asymptomatic menopausal state
CPT/HCPCS: 77063; 77067; 77080

== ENCOUNTER → 2023-03-31 | Outpatient (CLI) | payer MEDICARE, OTHER, SELFPAY ==
--- NOTE | 2023-03-31 14:11 | RAD_ITS ---
STUDY: X-RAY - LEFT SHOULDER REASON FOR EXAM: Female, 77 years old. Left Shoulder Pain TECHNIQUE: 4 view(s) of the shoulder. COMPARISON: None. FINDINGS: Normal glenohumeral articulation. Normal acromioclavicular joint. Normal acromion. Normal humeral head and visualized proximal humerus. The soft tissue structures are unremarkable. Normal visualized pulmonary apex. RAD/Shoulder min 2 Views IMPRESSION: Normal x-ray examination of the shoulder. Electronically Signed: Torsten Izaguirre MD at 15:13 EDT ,
[2023-03-31 15:06] LABS: Absolute Lymphocyte Count 1.18 X10^3/uL (0.83-4.51); Basophil# 0.08 X10^3/uL; Basophil% 1.6 % (0-1); Eosinophil# 0.21 X10^3/uL; Eosinophils% 4.3 % (0-5); Hematocrit 40.7 % (37-47); Hemoglobin 13.6 g/dL (12.0-15.0); Lymphocyte # 1.18 X10^3/ul (0.83-4.51); Lymphocyte % 24.3 % (19-41); Mean Corp Hgb Conc 33.4 g/dL (32-36); Mean Corpuscular Hgb 30.8 pg (27.0-32.0); Mean Corpuscular Volume 92.1 fL (81-99); Mean Platelet Vol. 9.1 fl (6.2-12.0); Monocyte# 0.41 X10^3/uL; Monocyte% 8.5 % (0-10); NRBC Flagged by Analyzer 0 % (0-5); Neutrophil # 2.95 X10^3/uL (2.7-7.7); Neutrophil % 60.9 % (47-70); Platelet Count 259 K/mm3 (150-450); RBC Distribution Width CV 12.4 % (11.6-14.6); RBC Distribution Width SD 41.9 fl (35.1-43.9); Red Blood Count 4.42 M/mm3 (4.2-5.4); White Blood Count 4.9 K/mm3 (4.4-11.0)
[2023-03-31 15:43] LABS: AST(SGOT) 20 U/L (15-37); Alanine Aminotransfer ALT/SGPT 35 U/L (13-56); Albumin, Serum 3.6 g/dL (3.2-5.0); Alkaline Phosphatase 98 U/L (45-117); Anion Gap 5 (5-15); BUN 15 mg/dL (7-18); BUN/Creat Ratio 20.1 RATIO (10-20); Calcium,Total 8.9 mg/dL (8.5-10.1); Chloride 105 mmol/L (98-107); Cholesterol 227 mg/dL (200); Creatinine, Serum 0.74 mg/dL (0.55-1.02); EST Glomerular Filtration Rate 81 mL/min (>60); Est Glom Filt Rate - Afr Amer 97 mL/min (>60); Globulin 3.5 g/dL (2.2-4.2); Glucose 103 mg/dL (74-106); High Density Lipoprotein 45 mg/dL; Potassium 4.1 mmol/L (3.5-5.1); Protein, Total 7.1 g/dL (6.4-8.2); Sodium Level 139 mmol/L (136-145); Thyroid Stim Hormone (TSH) 2.47 uIU/mL (0.358-3.74); Triglycerides 172 mg/dL; Very Low Density Lipoprotein 34 mg/dL (5-40)
[2023-03-31 18:32] LABS: Vitamin D,25 Hydroxy 86.8 ng/mL
== END | disposition home or self-care (01) ==
PROVIDERS: PCP Internal Medicine; Referring Provider Internal Medicine; Visit Provider Internal Medicine
DX: M25.512 Pain in left shoulder (principal); I10 Essential (primary) hypertension; M85.80 Other specified disorders of bone density and structure, unspecified site; E03.9 Hypothyroidism, unspecified; E78.5 Hyperlipidemia, unspecified
CPT/HCPCS: 36415; 73030; 80053; 80061; 82306; 84443; 85025

== ENCOUNTER 2023-04-12 08:53 | Outpatient (RCR) | payer MEDICARE, OTHER, SELFPAY ==
--- NOTE | 2023-04-18 09:31 | HP.PTEVAL ---
Patient's Visit Information Visit Information Visit Information: NICHOLAS CARDOZA is a 77 year old F referred to Physical Therapy by Dr. Carline Escamilla MD with a diagnosis of L shoulder pain. Date of Evaluation: 04/12/23 Physical Therapist: Isael Leiva DPT Visit Plan Frequency: 1x/Week Duration: 4 Weeks Plan: Start with ER strengthening, RTC stability exercises and progressive ROM as tolerated. Subjective Subjective: Pt. is here today for her initial evaluation with diagnosis of L shoulder pain. Pt. reports having increased L shoulder pain after shoveling stone with . Pt. reports no pain during and no marked mech of injury. Pt. started having increased pain the next few days. Pt. has pain mostly at her anterior shoulder. Sleeping is painful, ADLs and UB dressing also cause increased symptoms. Decreased pain: rest and ice. Pain has been present for ~3-4 weeks. No NT noted. Pt. is hopeful to reduce symptoms in order to get back to all recreational activities without limitations. Pain L shoulder: Pain Intensity (Out of 10): 2 Pain Intensity Range: 0 and 4 Objective Objective: POSTURE: pt. has decent posture in stance. No guarded posture noted. PALPATION: pt. has tenderness along long head of biceps in groove and anterior shoulder near supraspinatus insertion. NEURO: Normal throughout. ROM: L shoulder: flexion 170deg mild increase NW, ext 60deg NE, functional ER C4 mild increase NW, functional IR L3 mild increase NW. ABD 160deg mild increase NW. R shoulder full without increase in symptoms. MMT: R shoulder 5/5 throughout. L shoulder: ER 4+/5 NE, IR 5/5 NE, ext 5/5 NE, flexion 4/5 increase NW, abd 4+/5 NE throughout range. Special Tests L Shoulder Drop Sign - IS Test: Negative L Shoulder Empty Can - SS: Negative L Shoulder Neer - Impingement: Positive L Shoulder Pardo Cristhian - Impingement: Positive L Shoulder Biceps Load Test - Labrum: Negative L Shoulder Apprehension Test - Anterior Instability: Negative L Shoulder Speeds Test - Labrum/Biceps: Positive L Shoulder Sulcus Sign - Inferior Laxity: Negative Balance/Special Test Scores Quick DASH Score: [phone] Goals Goal 1:: LTG: PT. to be I with HEP for progressive biceps and RTC loading. Goal Time Frame: 4-6 Weeks Goal 2:: LTG: Pt. to have full L shoulder ROM without increase in symptoms. Goal Time Frame: 4-6 Weeks Goal 3:: LTG: Pt. to have symmetrical L to R shoulder strength without increase in symptoms. Goal Time Frame: 4-6 Weeks Goal 4:: LTG: Pt. to sleep throughout the night without increase in L shoulder pain allowing for increased quality of life. Goal Time Frame: 4-6 Weeks Rehabilitation Potential Physical Therapy Diagnosis: Pt. has signs and symptoms consistent with L shoulder pain. Her symptoms suggest biceps pathology, possibly RTC. Pt. has better ROM than I would expect with a larger tear. I am going to treat it like a tendinitis, working on stability and ROM exercises. Slowly progressing loading as tolerated. Rehabilitation Potential: Excellent Anticipated Interventions Patient/Client Instruction: Educate patient on: Condition, Plan of Care, Risk Factors and Benefits of Fitness Program For the Purpose of:: To facilitate caregiver knowledge, To improve self management, To prevent re-injury, To improve ability to perform tasks related to life management and To improve tolerance to ADL's Therapeutic Exercise to Include: Strength training, Power training, Body mechanics, Postural training, Flexibilty training, Passive ROM, Active ROM and Scapular Strength/Stabilization For the Purpose of:: To decrease pain, To increase ROM, To improve nutrient delivery to tissue, To increase oxygenation perfusion and To improve muscle performance and motor function Text: Thank you for the opportunity to evaluate your patient. For Medicare and Medicare HMO plans, please review the plan of care and approve it. It will need to be FAXED BACK to us at [phone] for Medicare purposes. For Medicare only, by signing this I certify the plan of care. Please let me know if there are questions or concerns regarding this plan of care. Physician Signature: Date:
== END 2023-04-12 19:00 | disposition home or self-care (01) ==
LOC: PT 08:53
PROVIDERS: PCP Internal Medicine; Referring Provider Internal Medicine; Visit Provider Internal Medicine
DX: M25.512 Pain in left shoulder (principal)
CPT/HCPCS: 97110; 97161

== ENCOUNTER → 2023-11-02 | Outpatient (CLI) | payer MEDICARE, SELFPAY ==
--- NOTE | 2023-11-02 09:01 | BI_ITS ---
MAMMOGRAPHY - BILATERAL SCREENING REASON FOR EXAM: Female, 78 years old. Routine annual screening examination. PERTINENT HISTORY: Personal history of breast cancer. Prior right lumpectomy with radiation and chemotherapy. TECHNIQUE: Digital bilateral breast rony (3D mammographic acquisition) in the CC and MLO projections. 2-D mediolateral oblique (MLO) and craniocaudad (CC) views of both breasts were obtained. CAD: Full Field Digital Mammography with Computer Added Detection was performed. COMPARISON: Comparison is made with prior study of October 26, 2022 and October 22, 2021. FINDINGS: Breast Composition: There are scattered areas of fibroglandular density. There are no dominant masses or suspicious calcifications. Once again, the patient is status post right lumpectomy with resultant architectural distortion and postoperative scarring and skin thickening in the upper deep lateral aspect of the right breast. Surgical clips are also seen in the left axilla. Stable benign appearing left axillary lymph nodes. No other significant abnormalities are identified. There has been no significant change since the prior study. BI/SCRN MAMM (CAD)W/RONY BILAT IMPRESSION: Stable bilateral screening mammogram. Yearly follow-up mammogram recommended. (A) ASSESSMENT CATEGORY: BIRADS Category 2: Benign. A letter regarding these results will be sent to the patient by the facility within 30 days. Approximately 10% of breast cancers are not detected by mammography. A normal mammogram should not delay biopsy of a clinically suspicious abnormality. [id number] Electronically Signed: Torsten Izaguirre MD at 10:29 EDT ,
== END | disposition home or self-care (01) ==
LOC: OPBI 09:01
PROVIDERS: PCP Internal Medicine; Visit Provider Nurse Practitioner Women's Health
DX: Z12.31 Encounter for screening mammogram for malignant neoplasm of breast (principal); Z85.3 Personal history of malignant neoplasm of breast; Z92.3 Personal history of irradiation; Z92.21 Personal history of antineoplastic chemotherapy
CPT/HCPCS: 77063; 77067

== ENCOUNTER → 2024-04-02 | Outpatient (CLI) | payer MEDICARE, SELFPAY ==
[2024-04-02 12:36] LABS: Absolute Lymphocyte Count 1.08 X10^3/uL (0.83-4.51); Absolute Neutrophil Count 3.1 X10^3/uL (2.0-7.7); Basophil# 0.07 X10^3/uL; Basophil% 1.4 % (0-1); Eosinophil# 0.22 X10^3/uL; Eosinophils% 4.4 % (0-5); Hematocrit 42.3 % (37-47); Hemoglobin 13.9 g/dL (12.0-15.0); Lymphocyte # 1.08 X10^3/ul (0.83-4.51); Lymphocyte % 21.6 % (19-41); Mean Corp Hgb Conc 32.9 g/dL (32-36); Mean Corpuscular Hgb 30.7 pg (27.0-32.0); Mean Corpuscular Volume 93.4 fL (81-99); Mean Platelet Vol. 9.4 fl (6.2-12.0); Monocyte# 0.55 X10^3/uL; NRBC Flagged by Analyzer 0 % (0-5); Neutrophil # 3.06 X10^3/uL (2.7-7.7); Neutrophil % 61.4 % (47-70); Platelet Count 271 K/mm3 (150-450); RBC Distribution Width CV 12.5 % (11.6-14.6); RBC Distribution Width SD 42.9 fl (35.1-43.9); Red Blood Count 4.53 M/mm3 (4.2-5.4)
[2024-04-02 13:26] LABS: ALB/GLOB Ratio 1.1 RATIO (0.9-2.4); AST(SGOT) 26 U/L (15-37); Alanine Aminotransfer ALT/SGPT 36 U/L (13-56); Albumin, Serum 3.8 g/dL (3.2-5.0); Alkaline Phosphatase 80 U/L (45-117); Anion Gap 8 (5-15); BUN 15 mg/dL (7-18); BUN/Creat Ratio 20.7 RATIO (10-20); Calcium,Total 8.9 mg/dL (8.5-10.1); Chloride 104 mmol/L (98-107); Cholesterol 238 mg/dL (200); Creatinine, Serum 0.72 mg/dL (0.55-1.02); EST Glomerular Filtration Rate 83 mL/min (>60); Est Glom Filt Rate - Afr Amer 100 mL/min (>60); Globulin 3.6 g/dL (2.2-4.2); Glucose 95 mg/dL (74-106); High Density Lipoprotein 46 mg/dL; Potassium 4.2 mmol/L (3.5-5.1); Protein, Total 7.4 g/dL (6.4-8.2); Sodium Level 137 mmol/L (136-145); Triglycerides 185 mg/dL; Very Low Density Lipoprotein 37 mg/dL (5-40)
== END | disposition home or self-care (01) ==
LOC: BIMLAB 08:24
PROVIDERS: PCP Internal Medicine; Referring Provider Internal Medicine; Visit Provider Internal Medicine
DX: E03.9 Hypothyroidism, unspecified (principal)
CPT/HCPCS: 36415; 80053; 80061; 84443; 85025

== ENCOUNTER → 2024-11-13 | Outpatient (CLI) | payer MEDICARE, SELFPAY ==
--- NOTE | 2024-11-13 09:49 | BI_ITS ---
EXAM: SCRN MAMM (CAD)W/RONY BILAT DATE: 11/13/2024 CLINICAL HISTORY: F, Age 79 y/o , SCREENING FOR BREAST CANCER Personal history of breast cancer. Prior right breast lumpectomy and radiation. BREAST CANCER RISK ASSESSMENT: Not assessed. TECHNIQUE: Bilateral screening digital breast tomosynthesis with 2D and 3D images. Computer aided detection. COMPARISON: Prior exam(s) dated November 02, 2023.. FINDINGS: TISSUE DENSITY: The breast tissue is heterogeneously dense, which may obscure small masses. Bilateral Breast Mammographic Findings: No significant masses, calcifications or other abnormalities are identified. The patient is status post lumpectomy in the upper lateral aspect of the right breast with resultant postoperative scarring and deformity. No suspicious masses, areas of developing architectural distortion, or suspicious calcifications. There has been no significant interval change. BI/SCRN MAMM (CAD)W/RONY BILAT IMPRESSION: Stable examination. OVERALL FINAL ASSESSMENT BI-RADS 2: BENIGN RECOMMEND ANNUAL MAMMOGRAPHIC SCREENING. RECOMMENDATION: Routine annual follow-up in 1 Year A letter with findings and recommendations will be mailed to the patient. Reading Location: [place] [id number]
--- OUTSIDE RECORDS SUMMARY | 2024-11-13 21:13 | XMS RPT_ITS | CCD ---
Author Organization [facility] Care Team Providers [employer] Mechanic Name Role Phone Soledad Morrison N Unavailable Catherine Morrisonica N Unavailable Catherine Morrisonica N Unavailable Catherine Morrisonica N Unavailable Modesta Burger Unavailable Unavailable Rob Veronica MD Unavailable ISABELLE ROBERTSON Unavailable Unavailable Erica Ramos Unavailable Unavailable Dr. Carline Escamilla Primary Care Provider [phone] Dr. Carline Escamilla Referring Provider [phone] Judah PELLETIER, NOLVIA Dc Attending Provider [phone] Dr. Carline Escamilla Primary Care Provider [phone] Dr. Carline Escamilla Referring Provider [phone] OPHELIA Rodriguez Attending Provider Unavailab Dr. Carline Christian Attending Provider [phone] Dr. Carline Escamilla Primary Care Provider [phone] Dr. Carline Escamilla Attending Provider [phone] Dr. Carline Escamilla Referring Provider [phone] Vanda So NP Attending Unavailable Carline Escamilla Referring Unavailable Carline Escamilla Primary Care Unavailable Carline Escamilla Attending Unavailable Carline Escamilla Referring Unavailable Carline Escamilla Primary Care Unavailable Vanda So NP Attending Unavailable Vanda So NP Referring Unavailable Carline Escamilla Primary Care Unavailable Carline Escamilla Attending Unavailable Carline Escamilla Referring Unavailable Carline Escamilla Primary Care Unavailable Allergies Allergy Classification Reported Allergen(s) Allergy Type Date of Onset Reaction(s) Facility (8 sources) Sulfonamides (Antibiotic) drug allergy 01-28-20 11 [facility] Work Phone: (8 sources) Sulfonamides (Antibiotic); Translations: [SULFA (SULFONAMIDE ANTIBIOTICS)] Propensity to adverse reactions to drug (disorder) 07-01-19 06 AOF, Nausea/Vom/Mell rrhea [facility] Repository Medications Current Medications Medication Drug Class(es) Dates Sig (Normalized) Sig (Original) B-Complex With Vitamin C (Super B Complex-Vitamin C) tablet (6 sources) Start: 05-05-2017 take 1 tablet by mouth once daily B-Complex With Vitamin C (Super B Complex-Vitamin C) tablet Active 1 TABLET PO daily May 05, 2017 5:36pm Start: 05-05-2017 take 1 tablet by bhavesh th once daily B-Complex With Vitamin C (Super B Complex-Vitamin C) tablet Active 1 TABLET PO daily May 05, 2017 12:00am Start: 05-05-2017 take 1 tablet by bhavesh th once daily B-Complex With Vitamin C (Super B Complex-Vitamin C) tablet Active 1 TABLET PO daily May 05, 2017 1:00am calcium carbonate 1500 mg / cholecalciferol 800 unt oral tablet (9 sources) Vitamin D Start: 05-18-2022 take 1 tablet by mouth once daily Calcium Carbonate-Vitamin D3 (Caltrate With Vitamin D3) 600 mg-20 mcg (800 unit) tablet Active 1 TABLET PO DAILY May 18, 2022 12:00am Start: 05-05-2017 End: 05-18-2022 take 1 tablet by mouth once daily calcium carbonate-vitamin D3 1,000 mg (2,500 mg)-800 unit tablet Discontinued 1 TABLET PO DAILY May 05, 2017 12:00am May 18, 2022 2:50pm cholecalciferol 0.025 mg oral capsule (12 sources) Vitamin D Start: 05-18-2022 take 1000 [IU] by mouth once daily Cholecalciferol (Vitamin D3) Active 1000 UNIT PO DAILY May 18, 2022 2:48pm Start: 05-05-2017 End: 05-18-2022 take 1000 [IU] by mouth once Cholecalciferol (Vitamin D3) Discontinued 1000 UNIT PO ONCE May 05, 2017 12:00am May 18, 2022 2:51pm Start: 01-27-2011 VITAMIN D3 CAPS CHOLECALCIFEROL CAPS [id number] Rob Veronica MD meloxicam 15 mg oral tablet (2 sources) Nonsteroidal Anti-inflammatory Drug Start: 03-31-2023 Meloxicam Active 15 MG PO DAILY 60 March 30, 2023 11:00pm Take daily x 5 days then as needed. Take with Food. metoprolol tartrate 50 mg oral tablet (20 sources) beta-Adrenergic Cecilio Start: 01-27-2011 End: 05-26-2023 take 50 mg by mouth twice daily Metoprolol Tartrate Active 50 MG PO TWICE A DAY 180 May 26, 2023 4:40pm Multivitamin preparation (6 sources) Start: 08-25-2016 take 1 tablet by mouth once daily Multivitamin Active 1 TABLET PO DAILY August 25, 2016 4:08pm Start: 08-25-2016 take 1 tablet by bhavesh th once daily Multivitamin Active 1 TABLET PO DAILY August 24, 2016 11:00pm Start: 08-25-2016 take 1 tablet by bhavesh th once daily Multivitamin Active 1 TABLET PO DAILY August 25, 2016 12:00am Vit C-Vit P-Dzvwzf-Lipdtxii (4 sources) Start: 03-12-2022 take 1 capsule by mouth once daily Vit C-Vit V-Mtvgwi-Tuasehza Active CAP PO daily March 11, 2022 11:00pm Start: 03-12-2022 take 1 capsule by mo uth once daily Vit C-Vit R-Nqfles-Xhzfgwdx Active CAP PO daily March 12, 2022 12:00am vitamin k2 0.1 mg oral capsule (3 sources) Start: 05-18-2022 take 100 ug by mouth once daily Vitamin K2 Active 100 MCG PO DAILY May 18, 2022 12:00am Vitamins A,C,F-Rjhg-Nyxghw (Preservision Areds) 14,320-226-200 obko-th-bahb capsule (6 sources) Start: 07-07-2020 take 1 capsule by mouth twice daily Vitamins A,C,S-Kfnu-Wtzxre (Preservision Areds) 14,320-226-200 xvva-iw-jlix capsule Active 1 CAP PO TWICE A DAY July 07, 2020 2:01pm Start: 07-07-2020 End: 03-12-2022 take 1 capsule by mouth twice daily Vitamins A,C,M-Xsdc-Ddkgdt (Preservision Areds) 14,320-226-200 ltit-ks-rrjb capsule Discontinued 1 CAP PO TWICE A DAY July 07, 2020 12:00am March 12, 2022 7:00am Start: 07-07-2020 End: 03-12-2022 take 1 capsule by mouth twice daily Vitamins A,C,U-Skio-Pfnpjz (Preservision Areds) 14,320-226-200 lyao-bs-davp capsule Discontinued 1 CAP PO TWICE A DAY July 07, 2020 1:00am March 12, 2022 8:00am Start: 07-07-2020 take 1 capsule by mo [facility] twice daily Vitamins A,C,Q-Ctju-Uxrlsq (Preservision Areds) 14,320-226-200 lqui-el-fnuc capsule Active 1 CAP PO TWICE A DAY July 07, 2020 1:00am Completed/Discontinued Medications Medication Drug Class(es) Dates Sig (Normalized) Sig (Original) ARIPiprazole 10 mg oral tablet (8 sources) Atypical Antipsychotic Start: 09-19-2012 ABILIFY 10 MG TABS ARIPIPRAZOLE [id number] Dimitri Morales MD ascorbic acid 1000 mg oral tablet (6 sources) Vitamin C Start: 05-08-2020 End: 03-12-2022 take 1 g by mouth once daily Ascorbic Acid (Vitamin C) Discontinued 1 GM PO DAILY May 08, 2020 12:00am March 12, 2022 7:01am B COMPLEX VITAMINS (3 sources) Start: 01-27-2011 B COMPLEX 50 TABS B COMPLEX VITAMINS [id number] Rob Veronica MD calcium carbonate 1500 mg oral tablet (6 sources) Start: 08-25-2016 End: 05-05-2017 take 600 mg by mouth twice daily Calcium Carbonate Discontinued 600 MG PO TWICE A DAY August 24, 2016 11:00pm May 05, 2017 4:37pm calcium carbonate / vitamin D (8 sources) Start: 01-27-2011 take 1 tablet by mouth twice daily CALCIUM CARBONATE-VITAMIN D 600-125 MG-UNIT TABS One tablet by mouth twice daily CALCIUM CARBONATE-VITAMIN D [id number] Nieves Baltazar Start: 01-27-2011 take 1 tablet by bhavesh th twice daily CALCIUM CARBONATE-VITAMIN D 600-125 MG-UNIT TABS One tablet by mouth twice daily CALCIUM CARBONATE-VITAMIN D [id number] Nieves Baltazar Calcium Citrate (3 sources) Start: 01-27-2011 CITRACAL +D3 250-107-500 MG-MG-UNIT CHEW VZZEZYY-KLQIQHCJYY-TZJLYUQ D [id number] Rob Veronica MD diclofenac sodium 75 mg delayed release oral tablet (11 sources) Nonsteroidal Anti-inflammator y Drug Start: 09-28-2016 End: 03-04-2017 take 1 tablet by mouth twice daily as needed DICLOFENAC SODIUM 75 MG TBEC One tablet by mouth twice daily as needed DICLOFENAC SODIUM [id number] Rob Veronica MD gabapentin 100 mg oral capsule (9 sources) Anti-epileptic Agent Start: 01-27-2011 End: 05-05-2017 take 100 mg by mouth once daily Gabapentin Discontinued 100 MG PO DAILY February 27, 2017 11:00pm May 05, 2017 4:38pm letrozole 2.5 mg oral tablet (20 sources) Aromatase Inhibitor Start: 02-28-2017 End: 05-08-2020 take 2.5 mg by mouth once daily Letrozole Discontinued 2.5 MG PO DAILY 90 90 May 14, 2019 12:06pm May 08, 2020 3:39pm Start: 01-27-2011 FEMARA TABS 20 04/06/31 LETROZOLE TABS [id number] Rob Veronica MD Start: 01-27-2011 End: 08-18-2016 take 1 tablet by mouth once daily FEMARA 2.5 MG TABS One tablet by mouth daily. LETROZOLE [id number] Meron Hein CNP methylPREDNISolone 4 mg oral tablet (6 sources) Corticosteroid Start: 02-22-2020 End: 03-04-2020 take 1 tablet by mouth once Methylprednisolone (Medrol (Mick)) 4 mg tablets,dose pack Discontinued 0 PO per package directions February 21, 2020 11:00pm March 04, 2020 1:34pm PO PER PKG DIR MULTIPLE VITAMIN (4 sources) Start: 01-27-2011 take 1 tablet by mouth once daily MULTIVITAMINS TABS One tablet by mouth daily MULTIPLE VITAMIN [id number] Nieves Baltazar MULTIPLE VITAMIN (4 sources) Start: 01-27-2011 take 1 tablet by mouth once daily MULTIVITAMINS TABS One tablet by mouth daily MULTIPLE VITAMIN [id number] Nieves Baltazar Start: 01-27-2011 take 1 tablet by bhavesh th once daily MULTIVITAMINS TABS One tablet by mouth daily MULTIPLE VITAMIN [id number] Nieves Baltazar MULTIPLE VITAMINS-MINERALS (4 sources) Start: 01-27-2011 take 1 tablet by mouth twice daily OCUVITE PRESERVISION TABS One tablet by mouth twice daily MULTIPLE VITAMINS-MINERALS [id number] Nieves Realward MULTIPLE VITAMINS-MINERALS (4 sources) Start: 01-27-2011 take 1 tablet by mouth twice daily OCUVITE PRESERVISION TABS One tablet by mouth twice daily MULTIPLE VITAMINS-MINERALS [id number] Nieves Baltazar Start: 01-27-2011 take 1 tablet by bhavesh th twice daily OCUVITE PRESERVISION TABS One tablet by mouth twice daily MULTIPLE VITAMINS-MINERALS [id number] Nieves Baltazar naproxen 500 mg oral tablet (14 sources) Nonsteroidal Anti-inflammatory Drug Start: 08-25-2016 End: 05-05-2017 take 500 mg by mouth twice daily Naproxen Discontinued 500 MG PO TWICE A DAY August 24, 2016 11:00pm May 05, 2017 4:38pm pitavastatin calcium 4 mg oral tablet (6 sources) HMG-CoA Reductase Inhibitor Start: 05-04-2018 End: 06-19-2018 take 1 tablet by mouth once daily pitavastatin calcium 4 mg tablet Discontinued 4 MG PO DAILY May 04, 2018 12:00am June 19, 2018 10:17am pravastatin sodium 20 mg oral tablet (20 sources) HMG-CoA Reductase Inhibitor Start: 09-19-2012 End: 01-27-2016 PRAVASTATIN SODIUM 20 MG TABS one tablet by mouth three days a week HOLD PRAVASTATIN SODIUM [id number] Dimitri Morales MD Start: 09-19-2012 take 1 tablet by bhavesh th once daily PRAVASTATIN SODIUM 20 MG TABS One tablet by mouth daily PRAVASTATIN SODIUM [id number] Dimitri Morales MD Start: 09-19-2012 PRAVASTATIN SO DIUM 20 MG TABS 3 x weekly PRAVASTATIN SODIUM [id number] Dimitri Morales MD rosuvastatin calcium 10 mg oral tablet (6 sources) HMG-CoA Reductase Inhibitor Start: 02-09-2018 End: 06-19-2018 take 10 mg by mouth once daily Rosuvastatin Discontinued 10 MG PO DAILY February 08, 2018 11:00pm June 19, 2018 10:17am simvastatin 20 mg oral tablet (8 sources) HMG-CoA Reductase Inhibitor Start: 01-27-2011 take 1 tablet by mouth at bedtime SIMVASTATIN 20 MG TABS One tablet by mouth at bedtime. SIMVASTATIN [id number] Dimitri Morales MD levothyroxine sodium 0.05 mg oral tablet (20 sources) l-Thyroxine Start: 09-16-2011 End: 03-31-2023 take 1 tablet by mouth once daily Levothyroxine Discontinued 0 .ROUTE .COMPLEX 60 March 21, 2023 3:54pm March 31, 2023 3:42pm TAKE 1 TABLET BY MOUTH EVERY DAY triamcinolone acetonide 5 mg/ml topical cream (6 sources) Corticosteroid Start: 03-04-2020 End: 05-08-2020 Triamcinolone Acetonide Discontinued 1 APPLIC TOPICAL TWICE A DAY 454 March 03, 2020 11:00pm May 08, 2020 3:39pm ubidecarenone 100 mg oral capsule (6 sources) Start: 05-04-2018 End: 06-19-2018 Coenzyme Q10 Discontinued 100 MG PO DAILY May 04, 2018 12:00am June 19, 2018 10:15am Vitamins A,C,Q-Webg-Znshjb (12 sources) Start: 08-29-2018 End: 07-07-2020 Vitamins A,C,P-Ffho-Rbnxon Discontinued 1 EACH PO TWICE A DAY August 29, 2018 1:17pm July 07, 2020 2:00pm Start: 08-29-2018 End: 02-08-2021 Vitamins A,C,E-Fwvx-Rlopni D iscontinued 1 EACH PO TWICE A DAY August 28, 2018 11:00pm July 07, 2020 1:00pm Start: 08-29-2018 End: 07-07-2020 Vitamins A,C,F-Xkkg-Dwytdp D iscontinued 1 EACH PO TWICE A DAY August 29, 2018 12:00am July 07, 2020 2:00pm Start: 08-25-2016 End: 06-19-2018 Vitamins A,C,Q-Qljd-Silirb D iscontinued 1 EACH PO TWICE A DAY August 25, 2016 4:08pm June 19, 2018 11:17am Start: 08-25-2016 End: 06-19-2018 Vitamins A,C,P-Nnla-Pvudse D iscontinued 1 EACH PO TWICE A DAY August 24, 2016 11:00pm June 19, 2018 10:17am Start: 08-25-2016 End: 06-19-2018 Vitamins A,C,H-Tyeu-Gqzvlf D iscontinued 1 EACH PO TWICE A DAY August 25, 2016 12:00am June 19, 2018 11:17am Problems Active Problems Problem Classification Problem Date Documented Date Episodic/Chronic Cancer of breast (20 sources) Carcinoma of breast ; Translations: [Malignant neoplasm of unspecified site of unspecified female breast] Onset: 07-14-2009 01-23-2015 Chronic Cardiac dysrhythmias (8 sources) Paroxysmal supraventricular tachycardia; Translations: [Supraventricular tachycardia] Onset: 01-27-2011 01-27-2011 Chronic Cardiac dysrhythmias (14 sources) Palpitations; Translations: [Palpitations] Onset: 01-27-2011 01-27-2011 Episodic Disorders of lipid metabolism (17 sources) Hyperlipidemia; Translations: [Hyperlipidemia, unspecified] Onset: 09-19-2012 09-19-2012 Chronic Essential hypertension (9 sources) Essential hypertension; Translations: [Essential (primary) hypertension] Chronic Heart valve disorders (8 sources) Mitral valve prolapse; Translations: [Nonrheumatic mitral (valve) prolapse] Onset: 11-08-2014 11-08-2014 Chronic Other bone disease and musculoskeletal deformities (6 sources) Osteopenia; Translations: [Other specified disorders of bone density and structure, unspecified site] 08-29-2018 Episodic Other circulatory disease (6 sources) History of paroxysmal supraventricular tachycardia; Translations: [Personal history of other diseases of the circulatory system] 08-29-2018 Episodic Other non-traumatic joint disorders (6 sources) Arthritis of knee; Translations: [Other specified arthritis, left knee] Onset: 10-07-2016 10-07-2016 Chronic Other non-traumatic joint disorders (4 sources) Pain in left shoulder; Translations: [Left shoulder pain] 03-31-2023 Episodic Other screening for suspected conditions (not mental disorders or infectious disease) (2 sources) Encounter for screening mammogram for malignant neoplasm of breast; Translations: [Encounter for other screening for malignant neoplasm of breast] Onset: 08-22-2024 Episodic Other skin disorders (1 source) Nonscarring hair loss, unspecified; Translations: [Nonscarring hair loss, unspecified] Onset: 08-22-2024 Episodic Other upper respiratory infections (2 sources) Acute upper respiratory infection, unspecified; Translations: [Acute upper respiratory infections of unspecified site] Episodic Prolapse of female genital organs (1 source) Incomplete uterovaginal prolapse; Translations: [Incomplete uterovaginal prolapse] Onset: 08-22-2024 Chronic Residual codes; unclassified (1 source) Estrogen receptor positive status [ER+]; Translations: [Estrogen receptor positive status [ER+]] Onset: 08-22-2024 Episodic Spondylosis; intervertebral disc disorders; other back problems (12 sources) Lumbosacral spondylosis; Translations: [Degeneration of lumbar intervertebral disc] Onset: 10-07-2016 10-19-2016 Chronic Thyroid disorders (14 sources) Thyroid nodule; Translations: [Hypothyroidism] Onset: 02-22-2017 02-23-2017 Chronic Unclassified (6 sources) Screening mammography ; Translations: [Encounter for screening mammogram for malignant neoplasm of breast] Onset: 01-29-2016 01-29-2016 Unclassified (6 sources) Screening for osteoporosis ; Translations: [Encounter for screening for osteoporosis] Onset: 08-12-2016 08-12-2016 Unclassified (1 source) Unknown / UNK(Unknown) Onset: 07-28-2017 Past or Other Problems Problem Classification Problem Date Documented Da te Episodic/Chronic Other connective tissue disease (6 sources) Trochanteric bursitis; Translations: [Trochanteric bursitis, left hip] Onset: 10-07-2016 10-07-2016 Episodic Other lower respiratory disease (8 sources) Dyspnea; Translations: [Shortness of breath] Onset: 01-27-2011 01-27-2011 Episodic Other nutritional; endocrine; and metabolic disorders (8 sources) Body mass index (BMI) 28.0-28.9, adult; Translations: [Body mass index (BMI) 28.0-28.9, adult] Onset: 05-04-2016 05-04-2016 Episodic Spondylosis; intervertebral disc disorders; other back problems (6 sources) Backache; Translations: [Dorsalgia, unspecified] Onset: 10-07-2016 10-07-2016 Episodic Unclassified (8 sources) Family history of stroke; Translations: [Family history of stroke] 11-08-2014 Episodic Results Test Name Value Interpretation Reference Range Facility Logistics Intern Office Visit Reporton 08-22-2024 Logistics Intern Office Visit Report [facility]'[address], [address] [place] [address] OFFICE VISIT Date of Service: 08/22/24 MR#: [id number] Acct: [id number] Name: LUCILLE CARDOZA Rep #: [id number] : 1945 Provider: NOLVIA hawkins Age/Sex: 79/F [place] [facility] [place]: S[place] Intake Vital Signs 04/02/24 08:05 08/22/24 11:17 08/22/24 11:21 Height 5 ft 8 in 5 ft 8 in 5 ft 8 in Weight: 184 lb 185 lb 8 oz BMI 27.9 28.2 BP 110/70 138/70 H Blood Pressure Location Lt brachial Position Sitting Respiration 16 Pulse 49 L Pulse Source Monitor Temp 98.6 F Pulse Oximetry (%) 97 Oxygen Delivery Method room air Intake Visit Reasons: Annual (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) Chief Complaint: Annual Managed Services Consultant Required: No Is patient in pain?: No Allergies Sulfa (Sulfonamide Antibiotics) Adverse Reaction (Severe, Verified 08/22/24 11:25) Nausea/Vom/Diarrhea Medications ???Medication ???Instructions ???Recorded ???Confirmed ???Type multivitamin 1 tab PO DAILY 08/25/16 08/22/24 H istory B-complex with vitamin C (Super B 1 tab PO QDAY 12/07/17 03/26/25 H istory Complex-Vitamin C tablet) vit C-vit L-fhvcos-hhboubmc capsule cap PO QDAY 03/12/22 08/22/24 H istory calcium 600 mg (as 1 tab PO DAILY 05/18/22 08/22/24 H istory carbonate)-vitamin D3 20 mcg (800 unit) tablet (Caltrate with Vitamin D3) cholecalciferol (vitamin D3) 25 1,000 unit PO DAILY 05/18/2208/22 History mcg (1,000 unit) capsule vitamin K2 100 mcg capsule 100 mcg PO DAILY 05/18/22 08/22/24 History levothyroxine 50 mcg tablet See Rx Instructions .Route 4 08/22/24 Rx .COMPLEX #90 tabs metoprolol tartrate 50 mg tablet 50 mg PO BID #180 tabs 05/21/24 Rx Is last menstrual period known: No Post menopausal: Yes Patient : No : No PFSH Medical History Thinning hair Left shoulder pain COVID-19 ( 12/2021) Hypothyroidism Essential (primary) hypertension Hyperlipidemia Left ankle sprain Atrophic vaginitis Palpitations History of paroxysmal supraventricular tachycardia 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 Osteopenia Surgical History H/O lumpectomy Family History Mother CVA (cerebral vascular accident) Diabetes Father Dementia Brother Hypertension Heart disease Social History adopted: No household members: spouse number of children: 3 current occupational status: retired pets and animals: No sexually active: Yes Smoking Status: Never smoker alcohol intake: current alcohol intake frequency: holidays/special occasions only details: social substance use type: does not use caffeine: Yes (1) Type: coffee what type of physical activity do you participate in: walking and bicycling frequency: 3-4 times per week duration: 30-45 minutes/day seatbelt use: always do you feel safe at home: Yes additional social history: [employer]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 Date Name GA/Weeks Outcome Route Bth Weight Infant Gen Labor Lgth Anesthesia Del Locatn Provider FOB Unknown 1973 Dora Unknown 1977 Edilia Unknown 1983 Ninoskagomez HPI Encounter for routine gynecological examination Details: LUCILLE CARDOZA is a 79 year old who presents for annual exam. Thinning hair persists. Last PAP: na History of abnormal PAP: no Last mammogram: 10/2023 History of abnormal mammogram: right breast cancer Colon cancer screening: up to date Other preventative health care screenings: Francine Female Reproductive History Questions: metorrhagia: No and sexually active: No ROS Const Constitutional: Denies fatigue, weight gain or weight loss Cardio Card: Denies chest pain Resp Resp: Denies cough or dyspnea on exertion GI GI: Denies abdominal pain, bloating, change in stool character, constipation or vomiting : Reports as per HPI; Denies difficulty voiding, pelvic pain, urinary frequency, urinary incontinence, urinary urgency, vaginal discharge or vaginal pruritus Exam Const General: cooperative, healthy appearing, no acute distress and well developed Orientation: alert, oriented to person and oriented to place HENMT Head: normal to inspection Neck Neck: normal visual inspection Thyroid: thyroid normal Lymphatic: no lymphadenopathy noted Chest Breast inspection: normal inspection of the breasts and normal inspection of the axillae Paola (more content not included)... Normal [facility] CBC W/Diff, Automatedon 11-0 Absolute Lymph 1.08 X10 3/uL Normal 0.83-4.51 [facility] Comment on above: Performed By: #### L 100.0100, L500.4050, L500.4100, L501.9520 #### [facility] [address] [place], [address] Absolute Neut 3.1 X10 3/uL Normal 2.0-7.7 [facility] Comment on above: Performed By: #### L 100.0100, L500.4050, L500.4100, [id number] #### [facility] [address] [place], [address] Basophils/100 WBC (Bld) 1.4 % High 0-1 [facility] Comment on above: Performed By: #### L 100.0100, L500.4050, L500.4100, [id number] #### [facility] [address] [place], [address] Eosinophils/100 WBC (Bld) 4.4 % Normal 0-5 [facility] Comment on above: Performed By: #### L 100.0100, L500.4050, L500.4100, [id number] #### [facility] [address] [place], [address] Erythrocyte distribution width (RBC) [Ratio] 12.5 % Normal 11.6-14.6 [facility] Comment on above: Performed By: #### L 100.0100, L500.4050, L500.4100, [id number] #### [facility] [address] [place], [address] Hematocrit (Bld) [Volume fraction] 42.3 % Normal 37-47 [facility] Comment on above: Performed By: #### L 100.0100, L500.4050, L500.4100, [id number] #### [facility] [address] [place], [address] Hemoglobin (Bld) [Mass/Vol] 13.9 g/dL Normal 12.0-15.0 [facility] Comment on above: Performed By: #### L 100.0100, L500.4050, L500.4100, [id number] #### [facility] [address] [place], [address] IG% 0.200 Normal 0.0-0.9 [facility] Comment on above: Result Comment: IG% - Immature Granulocytes (promyelocytes, myelocytes and metamyelocytes) > 1% indicates that a LEFT SHIFT is Present. Performed By: #### L 100.0100, L500.4050, L500.4100, [id number] #### [facility] [address] [place], [address] Lymphocytes/100 WBC (Bld) 21.6 % Normal 19-41 [facility] Comment on above: Performed By: #### L 100.0100, L500.4050, L500.4100, [id number] #### [facility] [address] [place], [address] MCH (RBC) [Entitic mass] 30.7 pg Normal 27.0-32.0 [facility] Comment on above: Performed By: #### L 100.0100, L500.4050, L500.4100, [id number] #### [facility] [address] [place], [address] MCHC (RBC) [Mass/Vol] 32.9 g/dL Normal 32-36 [facility] Comment on above: Performed By: #### L 100.0100, L500.4050, L500.4100, [id number] #### [facility] [address] [place], [address] MCV (RBC) [Entitic vol] 93.4 fL Normal 81-99 [facility] Comment on above: Performed By: #### L 100.0100, L500.4050, L500.4100, [id number] #### [facility] [address] [place], [address] Monocytes/100 WBC (Bld) 11.0 % High 0-10 [facility] Comment on above: Performed By: #### L 100.0100, L500.4050, L500.4100, [id number] #### [facility] [address] [place], [address] Neutrophils/100 WBC (Bld) 61.4 % Normal 47-70 [facility] Comment on above: Performed By: #### L 100.0100, L500.4050, L500.4100, [id number] #### [facility] [address] [place], [address] Nucleated RBC (Bld) [#/Vol] 0 10*3/uL Normal 0-5 [facility] Comment on above: Performed By: #### L 100.0100, L500.4050, L500.4100, [id number] #### [facility] [address] [place], [address] Platelet mean volume (Bld) [Entitic vol] 9.4 fL Normal 6.2-12.0 [facility] Comment on above: Performed By: #### L 100.0100, L500.4050, L500.4100, [id number] #### [facility] [address] [place], [address] Platelets (Bld) [#/Vol] 271 10*3/uL Normal 150-450 [facility] Comment on above: Performed By: #### L 100.0100, L500.4050, L500.4100, [id number] #### [facility] [address] [place], [address] RBC (Bld) [#/Vol] 4.53 10*6/uL Normal 4.2-5.4 [facility] Comment on above: Performed By: #### L 100.0100, L500.4050, L500.4100, [id number] #### [facility] [address] [place], [address] RDW SD 42.9 fl Normal 35.1-43.9 [facility] Comment on above: Performed By: #### L 100.0100, L500.4050, L500.4100, [id number] #### [facility] [address] [place], [address] WBC (Bld) [#/Vol] 5.0 10*3/uL Normal 4.4-11.0 [facility] Comment on above: Performed By: #### L 100.0100, L500.4050, L500.4100, [id number] #### [facility] [address] [place], [address] Comprehensive Metabolic Prof ilon 04-02-2024 Albumin [Mass/Vol] 3.8 g/dL Normal 3.2-5.0 [facility] Comment on above: Performed By: #### L 100.0100, L500.4050, L500.4100, [id number] #### [facility] [address] [place], [address] Albumin/Globulin [Mass ratio] 1.1 {ratio} Normal 0.9-2.4 [facility] Comment on above: Performed By: #### L 100.0100, L500.4050, L500.4100, [id number] #### [facility] [address] [place], [address] ALK P 80 U/L Normal 45-117 [facility] Comment on above: Performed By: #### L 100.0100, L500.4050, L500.4100, [id number] #### [facility] [address] [place], [address] ALT [Catalytic activity/Vol] 36 U/L Normal 13-56 [facility] Comment on above: Performed By: #### L 100.0100, L500.4050, L500.4100, [id number] #### [facility] [address] [place], [address] AST [Catalytic activity/Vol] 26 U/L Normal 15-37 [facility] Comment on above: Performed By: #### L 100.0100, L500.4050, L500.4100, [id number] #### [facility] [address] [place], [address] Bilirubin [Mass/Vol] 0.70 mg/dL Normal 0.20-1.00 [facility] Comment on above: Result Comment: For patients on eltrombopag therapy, use of Dimension Harvard TBIL is not recommended. Performed By: #### L 100.0100, L500.4050, L500.4100, [id number] #### [facility] [address] [place], [address] BUN/CRE 20.7 RATIO High 10-20 [facility] Comment on above: Performed By: #### L 100.0100, L500.4050, L500.4100, [id number] #### [facility] [address] [place], [address] CA,Total 8.9 mg/dL Normal 8.5-10.1 [facility] Comment on above: Performed By: #### L 100.0100, L500.4050, L500.4100, [id number] #### [facility] [address] [place], [address] Chloride [Moles/Vol] 104 mmol/L Normal 98-107 [facility] Comment on above: Performed By: #### L 100.0100, L500.4050, L500.4100, [id number] #### [facility] [address] [place], [address] CO2 [Moles/Vol] 25.0 mmol/L Normal 21.0-32.0 [facility] Comment on above: Performed By: #### L 100.0100, L500.4050, L500.4100, [id number] #### [facility] [address] [place], [address] Creatinine [Mass/Vol] 0.72 mg/dL Normal 0.55-1.02 [facility] Comment on above: Result Comment: The validity of the calculated GFR GFRAA in patients over 70 years has not been determined. Clinical correlation is essential. Performed By: #### L 100.0100, L500.4050, L500.4100, [id number] #### [facility] [address] [place], [address] EST GFR - AA 100 mL/min Normal >60 [facility] Comment on above: Result Comment: Afri can Grenadian GFR Calc Performed By: #### L 100.0100, L500.4050, L500.4100, [id number] #### [facility] [address] [place], [address] GAP 8 Normal 5-15 [facility] Comment on above: Performed By: #### L 100.0100, L500.4050, L500.4100, [id number] #### [facility] [address] [place], [address] GFR/1.73 sq M.predicted among non-blacks MDRD (S/P/Bld) [Vol rate/Area] 83 mL/min/{1.73_m2} Normal >60 [facility] Comment on above: Result Comment: Non- GFR Calc Performed By: #### L 100.0100, L500.4050, L500.4100, [id number] #### [facility] [address] [place], [address] Globulin (S) [Mass/Vol] 3.6 g/dL Normal 2.2-4.2 [facility] Comment on above: Performed By: #### L 100.0100, L500.4050, L500.4100, [id number] #### [facility] [address] [place], [address] Glucose [Mass/Vol] 95 mg/dL Normal 74-106 [facility] Comment on above: Performed By: #### L 100.0100, L500.4050, L500.4100, [id number] #### [facility] [address] [place], [address] Potassium [Moles/Vol] 4.2 mmol/L Normal 3.5-5.1 [facility] Comment on above: Performed By: #### L 100.0100, L500.4050, L500.4100, L501.9520 #### [facility] [address] [place], [address] Sodium [Moles/Vol] 137 mmol/L Normal 136-145 [facility] Comment on above: Performed By: #### L 100.0100, L500.4050, L500.4100, [id number] #### [facility] [address] [place], [address] T PROT 7.4 g/dL Normal 6.4-8.2 [facility] Comment on above: Performed By: #### L 100.0100, L500.4050, L500.4100, [id number] #### [facility] [address] [place], [address] Urea nitrogen [Mass/Vol] 15 mg/dL Normal 7-18 [facility] Comment on above: Performed By: #### L 100.0100, L500.4050, L500.4100, [id number] #### [facility] [address] [place], [address] Internal Medicine Office Vis sana 04-02-2024 Internal Medicine Office Visit [facility] [address] [place] [address] [place] [address] OFFICE VISIT Date of Service: 04/02/24 MR#: [id number] Acct: [id number] Name: LUCILLE CARDOZA Rep #: [id number] : 1945 Provider: Dr. Carline fuentes MD Age/Sex: 78/F Location: [facility] [place] Status: Signed Intake Vital Signs 03/31/23 13:21 08/09/23 09:05 04/02/24 08:05 Height 5 ft 8 in 5 ft 8 in 5 ft 8 in Weight: 184 lb BMI 27.9 BP 110/70 Blood Pressure Location Lt brachial Position Sitting Respiration 16 Pulse 49 L Pulse Source Monitor Temp 98.6 F Temp Source Temporal Pulse Oximetry (%) 97 Oxygen Delivery Method room air Intake Visit Reasons: YEARLY Chief Complaint: Annual Managed Services Consultant Required: No Is patient in pain?: No Allergies Sulfa (Sulfonamide Antibiotics) Adverse Reaction (Severe, Verified 04/02/24 07:58) Nausea/Vom/Diarrhea Medications ???Medication ???Instructions ???Recorded ???Confirmed ???Type multivitamin 1 tab PO DAILY 08/25/16 04/02/24 History B-complex with vitamin C (Super B 1 tab PO QDAY 05/05/17 04/02/24 History Complex-Vitamin C tablet) vit C-vit P-svcsil-jwunvzng capsule cap PO QDAY 03/12/22 04/02/24 History calcium 600 mg (as 1 tab PO DAILY 05/18/22 04/02/24 History carbonate)-vitamin D3 20 mcg (800 unit) tablet (Caltrate with Vitamin D3) cholecalciferol (vitamin D3) 25 1,000 unit PO DAILY 05/18/22 04/02/24 History mcg (1,000 unit) capsule vitamin K2 100 mcg capsule 100 mcg PO DAILY 05/18/22 04/02/24 History levothyroxine 50 mcg tablet See Rx Instructions .Route 03/31/23 04/02/24 Rx .COMPLEX #90 tabs metoprolol tartrate 50 mg tablet 50 mg PO BID #180 tabs 05/26/23 04/02/24 Rx Have you fallen in the past year?: No Nurse's Note: needs refill on synthroid. Declines flu vaccine. [facility] Medical History (Updated 04/02/24 @ 09:[address] Carline Escamilla MD) Health care maintenance Thinning hair Left shoulder pain COVID-19 ( 12/2021) Hypothyroidism Essential (primary) hypertension Hyperlipidemia Left ankle sprain Atrophic vaginitis Palpitations History of paroxysmal supraventricular tachycardia 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 Osteopenia Surgical History (Updated 04/02/24 @ 08:03 by Kristina Foster MA) H/O lumpectomy Family History Mother CVA (cerebral vascular accident) Diabetes Father Dementia Brother Hypertension Heart disease Social History (Updated 04/02/24 @ 08:04 by Kristina Foster MA) adopted: No household members: spouse number of children: 3 current occupational status: retired pets and animals: No sexually active: Yes Smoking Status: Never smoker alcohol intake: current alcohol intake frequency: holidays/special occasions only details: social substance use type: does not use caffeine: Yes (1) Type: coffee what type of physical activity do you participate in: walking and bicycling frequency: 3-4 times per week duration: 30-45 minutes/day seatbelt use: always do you feel safe at home: Yes additional 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 Also has some concerns. She reports thinning hair. Worse on the side where she lays on more often than the other. No significant shedding. This has been progressively worsening over the years. History of hypothyroidism on levothyroxine, stable TSH at last check a year ago. No heat or cold intolerance, change in bowel habit or unintentional weight changes. Other chronic medical conditions are largely stable. History of hypertension, blood pressure today at 110/70 mmHg. Currently on metoprolol which she states that she is taking as prescribed. Heart rate is slightly low, asymptomatic. Also history of paroxysmal supraventricular tachycardia. ROS Const Constitutional: No body ache, chills, excessive sweating, fatigue, fever(s), frequent falls, headache(s), snoring, weakness, sleep problems or change in appetite Eyes Eyes: No blurry vision, change in vision, dry eyes, bulging eyes, floaters, visual disturbances, eye pain or Light sensitivity ENT ENT: No abnormal hearing, ear or mastoid pain, tinnitus, balance problems, nosebleed/epistaxis, nasal congestion, headache(s), neck pain or sore throat Resp Respiratory: No cough, excessive phlegm production, pain on inspiration, shortness of breath, snoring or wheezing Cardio Cardiology: No chest pain at rest, chest pain with exertion, excessive sweating, shortness of breath, dyspnea on exertion, lightheadedness, orthopnea or palpitations Gastro GI: No abdominal pain, change in bowel habits, constipation, cramping, diarrhea, nausea/dyspepsia (more content not included)... Normal [facility] Lipid Profileon 04-02-2024 Cholesterol [Mass/Vol] 238 mg/dL High 200 [facility] Comment on above: Result Comment: <200 mg/dL Desirable 200-240 mg/dL Borderline >240 mg/dL High Risk Performed By: #### L 100.0100, L500.4050, L500.4100, L501.9520 #### [facility] [address] [place], [address] Cholesterol in HDL [Mass/Vol] 46 mg/dL Normal [facility] Comment on above: Result Comment: The drugs N-Acetylcysteine and Metamizole may falsely depress this assay. Reference Range HDL <40 mg/dL Low HDL Cholesterol HDL >or= 60 mg/dL High HDL Cholesterol Performed By: #### L 100.0100, L500.4050, L500.4100, L501.9520 #### [facility] [address] [place], [address] Cholesterol in LDL [Mass/Vol] 155 mg/dL High 0-130 [facility] Comment on above: Performed By: #### L 100.0100, L500.4050, L500.4100, L501.9520 #### [facility] [address] [place], [address] Cholesterol in VLDL [Mass/Vol] 37 mg/dL Normal 5-40 [facility] Comment on above: Performed By: #### L 100.0100, L500.4050, L500.4100, L501.9520 #### [facility] [address] [place], [address] Triglyceride [Mass/Vol] 185 mg/dL Normal [facility] Comment on above: Result Comment: The drugs N-Acetylcysteine and Metamizole may falsely depress this assay. Serum Triglycerides Reference Interval Normal <150 mg/dL Borderline high 150 - 199 mg/dL High 200 - 499 mg/dL Very High > or = 500 mg/dL Performed By: #### L 100.0100, L500.4050, L500.4100, L501.9520 #### [facility] [address] [place], [address] Thyroid Stim Hormone (TSH)on 04-02-2024 TSH 3.570 uIU/mL Normal 0.358-3.740 [facility] Comment on above: Performed By: #### L 100.0100, L500.4050, L500.4100, L501.9520 #### [facility] [address] [place], [place], [address] Absolute lymphocyte countOrd ered By: Carline Escamilla on 03-31-2023 Lymphocytes Auto (Unsp spec) [#/Vol] 1.18 10*3/uL 0.83-4.51 [facility] Basophil percentageOrdered B y: Carline Escamilla on 03-31-2023 Basophils/100 WBC (Bld) 1.6 % 0-1 [facility] Bilirubin [Mass/Vol] 0.40 mg/dL 0.20-1.00 [facility] Comment on above: For patients on eltr ombopag therapy, use of Dimension [place] TBIL is not recommended. Chloride [Moles/Vol] 105 mmol/L 98-107 [facility] Cholesterol [Mass/Vol] 227 mg/dL <200 [facility] Comment on above: <200 mg/dL Desirable 200-240 mg/dL Borderline >240 mg/dL High Risk Eosinophils/100 WBC (Bld) 4.3 % 0-5 [facility] Glucose [Mass/Vol] 103 mg/dL 74-106 [facility] Comment on above: Fasting Glucose resu lt from 100 to 125 mg/dL suggests IMPAIRED HOMEOSTASIS per A.D.A. criteria. Neutrophils (Bld) [#/Vol] 3.0 10*3/uL 2.0-7.7 [facility] Neutrophils/100 WBC (Bld) 60.9 % 47-70 [facility] Potassium [Moles/Vol] 4.1 mmol/L 3.5-5.1 [facility] Protein [Mass/Vol] 7.1 g/dL 6.4-8.2 [facility] Sodium [Moles/Vol] 139 mmol/L 136-145 [facility] Triglyceride [Mass/Vol] 172 mg/dL <199 [facility] Comment on above: The drugs N-Acetylcy steine and Metamizole may falsely depress this assay.Serum Triglycerides Reference Interval Normal <150 mg/dL Borderline high 150 - 199 mg/dL High 200 - 499 mg/dL Very High > or = 500 mg/dL WBC (Bld) [#/Vol] 4.9 10*3/uL 4.4-11.0 [facility] Blood erythrocytes count (nu mber/volume)Ordered By: Carline Escamilla on 03-31-2023 RBC (Bld) [#/Vol] 4.42 10*6/uL 4.2-5.4 [facility] Blood hemoglobin measurement (mass/volume)Ordered By: Carline Escamilla on 03-31-2023 Hemoglobin (Bld) [Mass/Vol] 13.6 g/dL 12.0-15.0 [facility] Blood lymphocytes/100 leukoc ytesOrdered By: Carline Escamilla on 03-31-2023 Lymphocytes/100 WBC (Bld) 24.3 % 19-41 [facility] Blood monocytes/100 leukocyt esOrdered By: Carline Escamilla on 03-31-2023 Monocytes/100 WBC (Bld) 8.5 % 0-10 [facility] Blood platelet mean volumeOr dered By: Carline Escamilla on 03-31-2023 Platelet mean volume (Bld) [Entitic vol] 9.1 fL 6.2-12.0 [facility] Determination of erythrocyte mean corpuscular volume (MCV)Ordered By: Carline Escamilla on 03-31-2023 MCV (RBC) [Entitic vol] 92.1 fL 81-99 [facility] Hematocrit Auto (Bld) [Volum e fraction]Ordered By: stepanisland heightsmacho Escamilla on 03-31-2023 Hematocrit (Bld) [Volume fraction] 40.7 % 37-47 [facility] - Chemistry and C hemistry - challengeOrdered By: [facility] on 03-31-2023 ALP [Catalytic activity/Vol] 98 U/L 45-117 [facility] ALT [Catalytic activity/Vol] 35 U/L 13-56 [facility] CO2 [Moles/Vol] 29.0 mmol/L 21.0-32.0 [facility] Globulin (S) [Mass/Vol] 3.5 g/dL 2.2-4.2 [facility] Urea nitrogen/Creatinine [Mass ratio] 20.1 mg/mg 10-20 [facility] - Hematology and Cell countsOrdered By: stepanisland heightsmacho Barbourellie on 03-31-2023 Erythrocyte distribution width (RBC) [Entitic vol] 41.9 fL 35.1-43.9 [facility] Erythrocyte distribution width (RBC) [Ratio] 12.4 % 11.6-14.6 [facility] Immature granulocytes/100 WBC (Bld) 0.400 % 0.0-0.9 [facility] Comment on above: IG% - Immature Granu locytes (promyelocytes, myelocytes and metamyelocytes) > 1% indicates that a LEFT SHIFT is Present. MCH (RBC) [Entitic mass] 30.8 pg 27.0-32.0 [facility] Nucleated RBC/100 WBC (Bld) [Ratio] 0 % 0-5 [facility] MCHC Auto (RBC) [Mass/Vol]Or dered By: douglas Escamilla on 03-31-2023 MCHC (RBC) [Mass/Vol] 33.4 g/dL 32-36 [facility] No Panel InformationOrdered By: Carline Escamilla on 03-31-2023 Estimated GFR (MDRD) Amer 97 mL/min >60 [facility] Comment on above: GFR Calc Estimated GFR (MDRD) Non-Af Amer 81 mL/min >60 [facility] Comment on above: Non- GFR Calc Thyroid Stimulating Hormone (TSH) 2.47 uIU/mL 0.358-3.74 [facility] Vitamin D 25-Hydroxy 86.8 ng/mL [facility] Comment on above: Vitamin D 25(OH) Sta tus Range Deficiency <20 ng/mL (50nmol/L) Insufficiency 20 - 30 ng/mL (50 - 75 nmol/L) Sufficiency 30 - 100 ng/mL (75 - 250 nmol/L) Toxicity >100 ng/mL (>250 nmol/L) Platelets bldOrdered By: Manoj Escamilla on 03-31-2023 Platelets (Bld) [#/Vol] 259 10*3/uL 150-450 [facility] Serum or plasma albumin ty urement (mass/volume)Ordered By: Carline Escamilla on 03-31-2023 Albumin [Mass/Vol] 3.6 g/dL 3.2-5.0 [facility] Serum or plasma albumin/glob ulin mass ratioOrdered By: Carline Escamilla on 03-31-2023 Albumin/Globulin [Mass ratio] 1.0 {ratio} 0.9-2.4 [facility] Serum or plasma calcium ty urement (mass/volume)Ordered By: Carline Escamilla on 03-31-2023 Calcium [Mass/Vol] 8.9 mg/dL 8.5-10.1 [facility] Serum or plasma cholesterol in HDL measurement (mass/volume)Ordered By: Carline Escamilla on 03-31-2023 Cholesterol in HDL [Mass/Vol] 45 mg/dL >40 [facility] Comment on above: The drugs N-Acetylcy steine and Metamizole may falsely depress this assay. Reference Range HDL <40 mg/dL Low HDL Cholesterol HDL >or= 60 mg/dL High HDL Cholesterol Serum or plasma cholesterol in VLDL measurement (mass/volume)Ordered By: Carline Escamilla on 03-31-2023 Cholesterol in VLDL [Mass/Vol] 34 mg/dL 5-40 [facility] Serum or plasma creatinine m easurement (mass/volume)Ordered By: Carline Escamilla on 03-31-2023 Creatinine [Mass/Vol] 0.74 mg/dL 0.55-1.02 [facility] Comment on above: The validity of the calculated GFR & GFRAA in patients over 70 years has not been determined. Clinical correlation is essential. Serum or plasma low density lipoprotein (LDL) cholesterol measurement (mass/volume)Ordered By: stepanisland heightsmacho Escamilla on 03-31-2023 Cholesterol in LDL [Mass/Vol] 148 mg/dL 0-130 [facility] Serum or plasma urea nitroge n measurement (mass/volume)Ordered By: Carline Escamilla on 03-31-2023 Urea nitrogen [Mass/Vol] 15 mg/dL 7-18 [facility] Thin prep Papanicolaou smear with manual screeningOrdered By: [facility] on 03-31-2023 Thin prep Papanicolaou smear with manual screening 20 U/L 15-37 [facility] Thin prep Papanicolaou smear with manual screening 5 5-15 [facility] Absolute lymphocyte counton 03-12-2022 Lymphocytes Auto (Unsp spec) [#/Vol] 0.92 10*3/uL 0.83-4.51 [facility] Work Phone: Basophil percentageon 2021 Basophils/100 WBC (Bld) 1.3 % 0-1 [facility] Work Phone: Bilirubin [Mass/Vol] 0.70 mg/dL 0.20-1.00 [facility] Work Phone: Comment on above: For patients on eltr ombopag therapy, use of Dimension [place] TBIL is not recommended. Chloride [Moles/Vol] 107 mmol/L 98-107 [facility] Work Phone: Cholesterol [Mass/Vol] 234 mg/dL <200 [facility] Work Phone: Comment on above: <200 mg/dL Desirable 200-240 mg/dL Borderline >240 mg/dL High Risk Eosinophils/100 WBC (Bld) 4.1 % 0-5 [facility] Work Phone: Glucose [Mass/Vol] 101 mg/dL 74-106 [facility] Work Phone: Comment on above: Fasting Glucose resu lt from 100 to 125 mg/dL suggests IMPAIRED HOMEOSTASIS per A.D.A. criteria. Neutrophils (Bld) [#/Vol] 2.3 10*3/uL 2.0-7.7 [facility] Work Phone: Neutrophils/100 WBC (Bld) 58.0 % 47-70 [facility] Work Phone: Potassium [Moles/Vol] 4.1 mmol/L 3.5-5.1 [facility] Work Phone: Protein [Mass/Vol] 7.3 g/dL 6.4-8.2 [facility] Work Phone: Sodium [Moles/Vol] 139 mmol/L 136-145 [facility] Work Phone: Triglyceride [Mass/Vol] 139 mg/dL <199 [facility] Work Phone: Comment on above: The drugs N-Acetylcy steine and Metamizole may falsely depress this assay.Serum Triglycerides Reference Interval Normal <150 mg/dL Borderline high 150 - 199 mg/dL High 200 - 499 mg/dL Very High > or = 500 mg/dL WBC (Bld) [#/Vol] 3.9 10*3/uL 4.4-11.0 [facility] Work Phone: Blood erythrocytes count (nu mber/volume)on 03-12-2022 RBC (Bld) [#/Vol] 4.37 10*6/uL 4.2-5.4 [facility] Work Phone: Blood hemoglobin measurement (mass/volume)on 03-12-2022 Hemoglobin (Bld) [Mass/Vol] 13.4 g/dL 12.0-15.0 [facility] Work Phone: Blood lymphocytes/100 leukoc yteson 03-12-2022 Lymphocytes/100 WBC (Bld) 23.7 % 19-41 [facility] Work Phone: Blood monocytes/100 leukocyt eson 03-12-2022 Monocytes/100 WBC (Bld) 12.6 % 0-10 [facility] Work Phone: Blood platelet mean volumeon 03-12-2022 Platelet mean volume (Bld) [Entitic vol] 9.9 fL 6.2-12.0 [facility] Work Phone: Determination of erythrocyte mean corpuscular volume (MCV)on 03-12-2022 MCV (RBC) [Entitic vol] 92.9 fL 81-99 [facility] Work Phone: Hematocrit Auto (Bld) [Volum e fraction]on 03-12-2022 Hematocrit (Bld) [Volume fraction] 40.6 % 37-47 [facility] Work Phone: Laboratory - Chemistry and C hemistry - challengeon 03-12-2022 ALP [Catalytic activity/Vol] 70 U/L 45-117 [facility] Work Phone: ALT [Catalytic activity/Vol] 36 U/L 13-56 [facility] Work Phone: CO2 [Moles/Vol] 27.0 mmol/L 21.0-32.0 [facility] Work Phone: Globulin (S) [Mass/Vol] 3.6 g/dL 2.2-4.2 [facility] Work Phone: Urea nitrogen/Creatinine [Mass ratio] 17.3 mg/mg 10-20 [facility] Work Phone: Laboratory - Hematology and Cell countson 03-12-2022 Erythrocyte distribution width (RBC) [Entitic vol] 44.0 fL 35.1-43.9 [facility] Work Phone: Erythrocyte distribution width (RBC) [Ratio] 12.9 % 11.6-14.6 [facility] Work Phone: Immature granulocytes/100 WBC (Bld) 0.300 % 0.0-0.9 [facility] [facility] Work Phone: Comment on above: IG% - Immature Granu locytes (promyelocytes, myelocytes and metamyelocytes) > 1% indicates that a LEFT SHIFT is Present. MCH (RBC) [Entitic mass] 30.7 pg 27.0-32.0 [facility] Work Phone: Nucleated RBC/100 WBC (Bld) [Ratio] 0 % 0-5 [facility] Work Phone: MCHC Auto (RBC) [Mass/Vol]on 03-12-2022 MCHC (RBC) [Mass/Vol] 33.0 g/dL 32-36 [facility] Work Phone: No Panel Informationon 03-12 Estimated GFR (MDRD) Amer 82 mL/min >60 [facility] Work Phone: Comment on above: GFR Calc Estimated GFR (MDRD) Non-Af Amer 68 mL/min >60 [facility] Work Phone: Comment on above: Non- GFR Calc Thyroid Stimulating Hormone (TSH) 2.29 uIU/mL 0.358-3.74 [facility] Work Phone: Platelets bldon 03-12-2022 Platelets (Bld) [#/Vol] 242 10*3/uL 150-450 [facility] Work Phone: Serum or plasma albumin ty urement (mass/volume)on 03-12-2022 Albumin [Mass/Vol] 3.7 g/dL 3.2-5.0 [facility] Work Phone: Serum or plasma albumin/glob ulin mass ratioon 03-12-2022 Albumin/Globulin [Mass ratio] 1.0 {ratio} 0.9-2.4 [facility] Work Phone: Serum or plasma calcium ty urement (mass/volume)on 03-12-2022 Calcium [Mass/Vol] 9.0 mg/dL 8.5-10.1 [facility] Work Phone: Serum or plasma cholesterol in HDL measurement (mass/volume)on 03-12-2022 Cholesterol in HDL [Mass/Vol] 48 mg/dL >40 [facility] Work Phone: Comment on above: The drugs N-Acetylcy steine and Metamizole may falsely depress this assay. Reference Range HDL <40 mg/dL Low HDL Cholesterol HDL >or= 60 mg/dL High HDL Cholesterol Serum or plasma cholesterol in VLDL measurement (mass/volume)on 03-12-2022 Cholesterol in VLDL [Mass/Vol] 28 mg/dL 5-40 [facility] Work Phone: Serum or plasma creatinine m easurement (mass/volume)on 03-12-2022 Creatinine [Mass/Vol] 0.87 mg/dL 0.55-1.02 [facility] Work Phone: Comment on above: The validity of the calculated GFR & GFRAA in patients over 70 years has not been determined. Clinical correlation is essential. Serum or plasma low density lipoprotein (LDL) cholesterol measurement (mass/volume)on 03-12-2022 Cholesterol in LDL [Mass/Vol] 158 mg/dL 0-130 [facility] Work Phone: Serum or plasma urea nitroge n measurement (mass/volume)on 03-12-2022 Urea nitrogen [Mass/Vol] 15 mg/dL 7-18 [facility] Work Phone: Thin prep Papanicolaou smear with manual screeningon 03-12-2022 Thin prep Papanicolaou smear with manual screening 27 U/L 15-37 [facility] Work Phone: Thin prep Papanicolaou smear with manual screening 5 5-15 [facility] Work Phone: Laboratory - Microbiology an d Antimicrobial susceptibilityon 12-31-2021 SARS-CoV-2 (COVID-19) RNA AMANDA+probe Ql (Unsp spec) Detected Not Detect [facility] Work Phone: Comment on above: Normal Reference Ran ge: Not DetectedMethod:(RT-PCR) real-time reverse transcriptase PCRLuminex MAURICIO Instrument*The Food and Drug Administration (FDA) has issued an Emergency Use Authorization (EAU) for the MAURICIO SARS-CoV-2 Assay for the rapid detection of the virus that causes COVID-19. This test has been validated, but the FDAs independent review of this validation is pending.*Negative results do not preclude infection and should not be used as the sole basis for treatment or patient management. Optimum specimen types and timing for peak viral levels during infections caused by SARS-CoV-2 have not been determined. Collection of multiple specimens from the same patient may be necessary to detect the virus. The possibility of a false negative result should be considered if the patient has clinical presentation or has had recent exposure. Naidne 07-28-2017 [facility] HNO ID: [id number]: Mammography CoordinatorService: (none)Author Type: PhysicianType: LetterFiled: 08/01/2017 11:31 PMNote Text:July 28, 2017 PID: [id number] [id number] [place], [place] [address]Ynsd Ms. Cardoza,We are pleased to inform you that the results of your recent breastimaging exam on 07/28/2017 are normal. Early detection of cancer is veryimportant. We also understand recommendations regarding breast cancerscreening are controversial. Please discuss with your primary careprovider which strategy is best for you and whether a mammogram is rightfor you.Your imaging studies and report will be kept on file at [facility] part of your permanent medical record and are available for yourcontinuing care.Thank you for allowing us to help in meeting your health care needs.Sincerely,Dr. MabryonInterpreting RadiologistWbaraga county memorial hospital [facility] (Normal over 40) Normal [facility] SCREENINGon 07-28-2017 [facility] SCREENING * * *Final Report* * *DATE OF EXAM: Jul 28 2017 10:47AM [facility] [id number] - [facility] SCREENING / REASON: screening * * * * Physician Interpretation * * * *RESULT: #[id number] - [facility] SCREENINGBILATERAL DIGITAL SCREENING MAMMOGRAM WITH CAD: 07/28/2017HISTORY: Screening /Patient reports NO breast symptoms /priors available for comparison.RESULT:TECHNI QUE: The study was acquired using full field digital technology and interpreted from soft copy.Current study was also evaluated with a Computer Aided Detection (CAD).Comparison is made to exams dated: 07/26/2016 mammogram, 07/23/2015 mammogram, and 07/15/2014 mammogram - [facility].There are scattered fibroglandular elements in both breasts.There are postoperative changes in the right breast related to prior lumpectomy.No significant masses, calcifications, or other findings are seen in either breast.There has been no significant interval change.IMPRESSION: BENIGN FINDINGThere is no mammographic evidence of malignancy.A 1 year screening mammogram is recommended.Soraida Rodrigues M.D.ls/penrad:07/28/2017 11:59:23Imaging Technologist: Ashley CEVALLOS)(Michelle), [facility]: Normal over 40Mammogram BI-RADS: 2 Benign findingTranscriptionist: BradleyTranscribe Date/Time: Jul 28 2017 10:26ADictated by: SORAIDA RODRIGUES MDThidayton examination was interpreted and the report reviewed and electronically signed by: SORAIDA RODRIGUES MD on Jul 28 2017 11:59AM [id number] Normal [facility] PROGRESSon 07-28-2017 PROGRESS HNO ID: [id number]: Hailey Whitt RtService: (none)Author Type: (none)Type: Progress NotesFiled: 07/28/2017 10:49 AMNote Text: Radiology Service Progress NotePATIENT NAME: Lucille CardozaMRN: [id number] OF SERVICE: July 28, 2017TIME: 10:26 AMPATIENT IDENTITY VERIFICATION COMPLETED USING TWO (2) METHODS: Patientconfirmed name verbally and Date of .PATIENT GENDER DATA: Female. status: : NoBreastfeeding status: NO.PATIENT RELEVANT IMPLANT DATA REVIEWED: Not ApplicableRADIOLOGY DEPARTMENT: [facility] antonette scr mammogramPERIPHERAL IV DATA: Not applicableSIGNED BY: Hailey Whitt RtMarch 2017 10:26 AM Normal [facility] Office Visit: Ultrasound david ded fine needle aspiration left thyroidon 03-11-2017 Documentation of current medications (procedure) Done Invalid Interpretation Code [facility] Work Phone: Tobacco use HS Never smoker Invalid Interpretation Code [facility] Work Phone: Office Visit: f/u thyroid US on 03-04-2017 Fall risk assessment No Invalid Interpretation Code [facility] Work Phone: Protein mass conc Done Invalid Interpretation Code [facility] Work Phone: Office Visiton 10-07-2016 Documentation of current medications (procedure) Done Invalid Interpretation Code [facility] Work Phone: Protein mass conc Done [facility] Work Phone: Tobacco smoking status NHIS Never smoker Invalid Interpretation Code [facility] Work Phone: Tobacco use CPHS Never smoker Invalid Interpretation Code [facility] Work Phone: Lab Report: CBC W/Diff, Auto - EPLAB Onlyon 08-12-2016 Basophils/100 leukocytes 2.0 % High 0-1 [facility] Work Phone: Basophils/100 WBC (Bld) 2.0 % High 0-1 [facility] Work Phone: Eosinophils/100 leukocytes 4.5 % Invalid Interpretation Code 0-5 [facility] Work Phone: Eosinophils/100 WBC (Bld) 4.5 % 0-5 [facility] Work Phone: Erythrocytes (RBC) 4.14 10*6/uL Low 4.2-5.4 [facility] Work Phone: Hematocrit (HCT) 38.8 % Invalid Interpretation Code 37-47 [facility] Work Phone: Hematocrit Volume Fraction (Bld) 38.8 % 37-47 [facility] Work Phone: Hemoglobin (HGB) 12.9 g/dL Invalid Interpretation Code 12.0-15.0 [facility] Work Phone: Lymphocytes/100 leukocytes 20.6 % Invalid Interpretation Code 19-41 [facility] Work Phone: Lymphocytes/100 WBC (Bld) 20.6 % 19-41 [facility] Work Phone: MCH 31.2 pg Invalid Interpretation Code 27.0-32.0 [facility] Work Phone: MCH Entitic mass (RBC) 31.2 pg 27.0-32.0 [facility] Work Phone: MCHC 33.3 g/dL Invalid Interpretation Code 32-36 [facility] Work Phone: MCHC mass conc (RBC) 33.3 g/dL 32-36 [facility] Work Phone: MCV 93.7 fL Invalid Interpretation Code 81-99 [facility] Work Phone: MCV Entitic volume (RBC) 93.7 fL 81-99 [facility] Work Phone: Monocytes/100 leukocytes 11.3 % High 0-10 [facility] Work Phone: Monocytes/100 WBC (Bld) 11.3 % High 0-10 [facility] Work Phone: Neutrophils/100 leukocytes 61.6 % Invalid Interpretation Code 47-70 [facility] Work Phone: Neutrophils/100 WBC (Bld) 61.6 % 47-70 [facility] Work Phone: Platelets 245 10*3/mm3 Invalid Interpretation Code 150-450 [facility] Work Phone: Platelets #/vol (Bld) 245 10*3/mm3 150-450 [facility] Work Phone: RBC #/vol (Bld) 4.14 10*6/uL Low 4.2-5.4 [facility] Work Phone: WBC #/vol (Bld) 5.2 10*3/uL 4.4-11.0 [facility] Work Phone: WBC (Leukocytes) 5.2 10*3/uL Invalid Interpretation Code 4.4-11.0 [facility] Work Phone: Absolute Neut 3.2 X10 3/UL Invalid Interpretation Code 2.0-7.7 [facility] Work Phone: Erythrocyte distribution width Ratio (RBC) 12.2 % 11.6-14.6 [facility] Work Phone: Lymphocytes 1.07 X10 3/UL Invalid Interpretation Code 0.83-4.51 [facility] Work Phone: Lymphocytes #/vol (Bld) 1.07 X10 3/UL 0.83-4.51 [facility] Work Phone: neutrophil count, blood 3.2 X10 3/UL Invalid Interpretation Code 2.0-7.7 [facility] Work Phone: Neutrophils #/vol (Bld) 3.2 X10 3/UL 2.0-7.7 [facility] Work Phone: Neutrophils Auto #/vol (Bld) 3.2 X10 3/UL Invalid Interpretation Code 2.0-7.7 [facility] Work Phone: Platelet mean volume Entitic volume (Bld) 5.8 fL Low 6.2-12.0 [facility] Work Phone: PMV by Suzanne 5.8 fL Low 6.2-12.0 [facility] Work Phone: RDW-CA 12.2 % Invalid Interpretation Code 11.6-14.6 [facility] Work Phone: Lab Report: Alexey yuen Profilon 08-12-2016 Alanine aminotransferase (ALT) 31 U/L Invalid Interpretation Code 12-78 [facility] Work Phone: Albumin 4.4 g/dL Invalid Interpretation Code 3.4-5.0 [facility] Work Phone: Albumin/Globulin Ratio 1.5 {ratio} Invalid Interpretation Code 0.9-2.4 [facility] Work Phone: Alkaline phosphatase (ALP) 85 U/L Invalid Interpretation Code 45-117 [facility] Work Phone: ALP enzyme act/vol (Bld) 85 U/L Invalid Interpretation Code 45-117 [facility] Work Phone: Anion gap 9 mmol/L Invalid Interpretation Code 5-15 [facility] Work Phone: Anion gap 4 molar conc 9 Invalid Interpretation Code 5-15 [facility] Work Phone: Anion gap molar conc 9 mmol/L 5-15 [facility] Work Phone: Aspartate aminotransferase (AST) 30 U/L Invalid Interpretation Code 15-37 [facility] Work Phone: Bilirubin (total) 0.50 mg/dL Invalid Interpretation Code 0.20-1.00 [facility] Work Phone: BUN/Creatinine Ratio 27.3 RATIO High 10-20 [facility] Work Phone: Calcium 8.9 mg/dL Invalid Interpretation Code 8.5-10.1 [facility] Work Phone: Chloride 102 mmol/L Invalid Interpretation Code 98-107 [facility] Work Phone: CO2 28.0 mmol/L Invalid Interpretation Code 21.0-32.0 [facility] Work Phone: CO2 ppres (BldV) 28.0 mmol/L Invalid Interpretation Code 21.0-32.0 [facility] Work Phone: Creatinine 0.81 mg/dL Invalid Interpretation Code 0.55-1.02 [facility] Work Phone: eGFR (non-black) 75 mL/min/{1.73_m2} Invalid Interpretation Code >60 [facility] Work Phone: eGFR (non-black) 91 mL/min/{1.73_m2} Invalid Interpretation Code >60 [facility] Work Phone: EST GFR - AA 91 mL/min Invalid Interpretation Code >60 [facility] Work Phone: Globulin 3.0 g/dL Invalid Interpretation Code 2.3-3.5 [facility] Work Phone: Globulin mass conc (S) 3.0 g/dL 2.3-3.5 [facility] Work Phone: Glucose 94 mg/dL Invalid Interpretation Code 70-110 [facility] Work Phone: Glucose mass conc 94 mg/dL Invalid Interpretation Code 70-110 [facility] Work Phone: Potassium 4.5 mmol/L Invalid Interpretation Code 3.5-5.1 [facility] Work Phone: Protein 7.4 g/dL Invalid Interpretation Code 6.4-8.2 [facility] Work Phone: Sodium 139 mmol/L Invalid Interpretation Code 136-145 [facility] Work Phone: Urea nitrogen 22 mg/dL High 7-18 [facility] Work Phone: Office Visit: 6 month f/u - PHQ9 Completeon 08-12-2016 Adolescent depression screening assessment Adolescent depression screening assessment Invalid Interpretation Code [facility] Work Phone: Adult depression screening assessment Adolescent depression screening assessment Invalid Interpretation Code [facility] Work Phone: Documentation of current medications (procedure) Done Invalid Interpretation Code [facility] Work Phone: Office Visit: Follow Up Visi t - Breast Carcinoma on Adjuvant AIon 07-31-2015 Tobacco use CPHS Never smoker Invalid Interpretation Code [facility] Work Phone: Office Visit: 6 month f/u - PHQ9 Completeon 07-30-2015 General categories [interpretation] of Cervical or vaginal smear or scraping by Cyto stain Unknown Invalid Interpretation Code [facility] Work Phone: Office Visit: 6 month f/u - PHQ9 Completeon 07-24-2015 Breast Mammogram screening Unknown Invalid Interpretation Code [facility] Work Phone: Lab Report: LDHon 07-22-2015 lactate dehydrogenase - serum 202 U/L Invalid Interpretation Code 84-246 [facility] Work Phone: LDH 202 U/L Invalid Interpretation Code 84-246 [facility] Work Phone: Lab Report: Uric Acidon 07-01 Urate 3.6 mg/dL Invalid Interpretation Code 2.6-6.0 [facility] Work Phone: Clinical Lists Update: Prelo cemetery warden 06-04-2015 Cholesterol 184 mg/dL Invalid Interpretation Code [facility] Work Phone: Globulin 3.8 g/dL High [facility] Work Phone: Globulin mass conc (S) 3.8 g/dL High [facility] Work Phone: HDL Cholesterol 43 mg/dL Invalid Interpretation Code [facility] Work Phone: LDL Cholesterol 110 mg/dL Invalid Interpretation Code [facility] Work Phone: Thyroid stimulating hormone (TSH) 2.30 u[iU]/mL Invalid Interpretation Code [facility] Work Phone: Thyroxine (T4) free 1.00 ng/dL Invalid Interpretation Code [facility] Work Phone: Triglyceride 155 mg/dL Invalid Interpretation Code [facility] Work Phone: very low density lipoproteins 31 mg/dL Invalid Interpretation Code [facility] Work Phone: Lab Report: CBC W/Diff, Auto - EPLAB Onlyon 01-23-2015 Absolute Neut 2.7 X10 3/UL Invalid Interpretation Code 2.0-7.7 [facility] Work Phone: Absolute Neutrophil count 2.7 X10 3/UL Invalid Interpretation Code 2.0-7.7 [facility] Work Phone: Lymphocytes 1.03 X10 3/UL Invalid Interpretation Code 0.83-4.51 [facility] Work Phone: Lymphocytes #/vol (Bld) 1.03 X10 3/UL 0.83-4.51 [facility] Work Phone: Lab Report: LDHon 01-23-2015 Lactate dehydrogenase (LDH) 182 U/L Invalid Interpretation Code 84-246 [facility] Work Phone: Office Visiton 11-08-2014 cardiac risk group B Invalid Interpretation Code [facility] Work Phone: General cardiovascular disease 10Y risk [#] Berne.D'Agostin o 11 % Invalid Interpretation Code [facility] Work Phone: Lab Report: Liver Profileon 07-25-2014 Bilirubin (direct) 0.12 mg/dL Invalid Interpretation Code 0.00-0.30 [facility] Work Phone: Lab Report: LIVERon 01-24-20 14 ALK 94 U/L Normal 45-117 [facility] Work Phone: GE use only - for [employer] import when terms are not otherwise specified 94 U/L Normal 45-117 [facility] Work Phone: Office Visit: Follow Up - Br east Cancer (On Letrozole)on 08-28-2012 Colonoscopy (procedure) Colonoscopy (procedure) Invalid Interpretation Code [facility] Work Phone: Protein mass conc Colonoscopy (procedure) Invali d Interpretation Code [facility] Work Phone: Lab Reporton 07-22-2011 basophils as percent of blood leukocytes, manual count 1.0 % Invalid Interpretation Code [facility] Work Phone: eosinophils as percent of blood leukocytes, manual count 5.5 % Invalid Interpretation Code [facility] Work Phone: neutrophils, band form as percent of blood leukocytes, manual count 62.2 % Invalid Interpretation Code [facility] Work Phone: Vital Signs Date Time Vital Sign Value Performing Clinician Facility 03-31-2023 13:21-0400 Body height 172.[address] Carline Escamilla Work Phone: [facility] 03-31-2023 13:21-0400 Body mass index (BMI) [Ratio] 27.5 kg/m2 Dr. Carline Escamilla Work Phone: [facility] 03-31-2023 13:21-0400 Body temperature 97.8 [degF] Dr. Carline Escamilla Work Phone: [facility] 03-31-2023 13:21-0400 Body weight 82.[address] Carline Escamilla Work Phone: [facility] 03-31-2023 13:21-0400 Diastolic blood pressure 84 mm[Hg] Dr. Carline Escamilla Work Phone: [facility] 03-31-2023 13:21-0400 Heart rate 59 /min Dr. Carline Escamilla Work Phone: [facility] 03-31-2023 13:21-0400 SaO2% (BldA) [Mass fraction] 97 % Dr. Carline Escamilla Work Phone: [facility] 03-31-2023 13:21-0400 Systolic blood pressure 154 mm[Hg] Dr. Carline Escamilla Work Phone: [facility] 10-26-2022 09:24-0400 Body height 172.72 cm [facility] 03-12-2022 07:58-0400 Body temperature 97.4 [degF] Dr. Carline Escamilla Work Phone: [facility] Work Phone: 03-12-2022 07:58-0400 Body weight 82.[address] Carline Escamilla Work Phone: [facility] Work Phone: 03-12-2022 07:58-0400 Diastolic blood pressure 68 mm[Hg] Dr. Carline Escamilla Work Phone: [facility] Work Phone: 03-12-2022 07:58-0400 Heart rate 76 /min Dr. Carline Escamilla Work Phone: [facility] Work Phone: 03-12-2022 07:58-0400 Respiratory rate 16 /min Dr. Carline Escamilla Work Phone: [facility] Work Phone: 03-12-2022 07:58-0400 SaO2% (BldA) [Mass fraction] 98 % Dr. Carline Escamilla Work Phone: [facility] Work Phone: 03-12-2022 07:58-0400 Systolic blood pressure 136 mm[Hg] Dr. Carline Escamilla Work Phone: [facility] Work Phone: 12-31-2021 16:08-0400 Body height 172.[address] Carline Escamilla Work Phone: [facility] Work Phone: 12-31-2021 16:08-0400 Body temperature 99.9 [degF] Dr. Carline Escamilla Work Phone: [facility] Work Phone: 12-31-2021 16:08-0400 Diastolic blood pressure 70 mm[Hg] Dr. Carline Escamilla Work Phone: [facility] Work Phone: 12-31-2021 16:08-0400 Heart rate 65 /min Dr. Carline Escamilla Work Phone: [facility] Work Phone: 12-31-2021 16:08-0400 Respiratory rate 16 /min Dr. Carline Escamilla Work Phone: [facility] Work Phone: 12-31-2021 16:08-0400 SaO2% (BldA) [Mass fraction] 92 % Dr. Carline Escamilla Work Phone: [facility] Work Phone: 12-31-2021 16:08-0400 Systolic blood pressure 142 mm[Hg] Dr. Carline Escamilla Work Phone: [facility] Work Phone: 07-28-2021 07:13-0500 Body height 172.[address] Carline Escamilla Work Phone: [facility] Work Phone: 07-28-2021 07:13-0500 Body mass index (BMI) [Ratio] 27.6 kg/m2 Dr. Carline Escamilla Work Phone: [facility] Work Phone: 07-28-2021 07:13-0500 Body weight 82.[address] Carline Escamilla Work Phone: [facility] Work Phone: 07-28-2021 07:13-0500 Diastolic blood pressure 72 mm[Hg] Dr. Carline Escamilla Work Phone: [facility] Work Phone: 07-28-2021 07:13-0500 Systolic blood pressure 142 mm[Hg] Dr. Carline Escamilla Work Phone: [facility] Work Phone: 03-04-2017 15:23-0400 BMI (Body Mass Index) 26.15 kg/m2 Rob Veronica MD [facility] Work Phone: 03-04-2017 15:23-0400 BP Diastolic 85 mm[Hg] Rob eVronica MD [facility] [employer] Work Phone: 03-04-2017 15:23-0400 BP Systolic 132 mm[Hg] Rob Veronica MD [facility] Work Phone: 03-04-2017 15:23-0400 Height 172.72 cm Rob Veronica MD [facility] [employer] Work Phone: 03-04-2017 15:23-0400 Pulse (Heart Rate) 56 /min Rob Veronica MD [facility] [employer] Work Phone: 03-04-2017 15:23-0400 Respiratory Rate 18 /min Rob Veronica MD [facility] [employer] Work Phone: 03-04-2017 15:23-0400 Weight 78.02 kg Rob Veronica MD [facility] [employer] Work Phone: 10-07-2016 09:03-0400 BMI (Body Mass Index) 27.67 kg/m2 [facility] Work Phone: 10-07-2016 09:03-0400 Weight 82.56 kg [facility] Work Phone: 08-12-2016 13:05-0400 BMI (Body Mass Index) 27.82 kg/m2 [facility] Work Phone: 08-12-2016 13:05-0400 Body Temperature 98 [degF] [facility] Work Phone: 08-12-2016 13:05-0400 BP Diastolic 74 mm[Hg] [facility] Work Phone: 08-12-2016 13:05-0400 BP Systolic 133 mm[Hg] [facility] Work Phone: 08-12-2016 13:05-0400 BSA (Body Surface Area) 1.97 m2 [facility] Work Phone: 08-12-2016 13:05-0400 [facility] Work Phone: 08-12-2016 13:05-0400 Pulse ([facility] Rate) 50 /[facility] Work Phone: 08-12-2016 13:05-0400 Pulse Oximetry 98 % [facility] Work Phone: 08-12-2016 13:05-0400 Respiratory Rate 16 /min [facility] Work Phone: 08-12-2016 13:05-0400 [facility] Work Phone: 08-12-2016 13:05-0400 Weight 83.01 kg [facility] Work Phone: 10-23-2013 16:02-0400 Height 172.72 [facility] Work Phone: Encounters Encounter Date Encounter Type Care Provider Facility Start: 11-13-2024 ambulatory Vanda So NP Facil ity:[facility] Start: 08-22-2024 Encounter for gynecological examination (general) (routine) with abnormal findings Vanda Williamsons ACCOUNTING CLERK [facility] Start: 08-22-2024 End: 08-22-2024 ambulatory Vandagomez Williamsons ACCOUNTING CLERK Facility:[facility] Start: 04-02-2024 End: 04-02-2024 ambulatory Carline Escamilla Facility:[facility] Start: 04-02-2024 End: 04-02-2024 ambulatory Carlien Escamilla Facility:[facility] Start: 04-12-2023 End: 04-12-[address] Carline Escamilla Work Phone: [facility] Work Phone: Start: 04-12-2023 End: 04-12-[address] Carline Escamilla Work Phone: [facility]-Physical Therapy Work Phone: Start: 03-31-2023 End: 03-31-[address] Carline Escamilla Work Phone: [facility] Work Phone: Start: 03-31-2023 End: 03-31-2023 Encounter for general adult medical examination without abnormal findings Dr. Carline Escamilla Work Phone: [facility] Start: 03-31-2023 End: 03-31-[address] Carline Escamilla Work Phone: [facility] Work Phone: Start: 10-26-2022 End: 10-26-2022 ambulatory [facility] Work Phone: Start: 10-26-2022 End: 10-26-2022 Patient encounter procedure [facility]-Outpatient Bone Densitometry Work Phone: Start: 03-12-[address] Ellie Escamilla Work Phone: [facility] Start: 03-12-2022 End: 03-12-[address] Carline Escamilla Work Phone: [facility] Work Phone: Start: 03-12-2022 End: 03-12-2022 Encounter for general adult medical examination without abnormal findings Dr. Carline Escamilla Work Phone: [facility] Start: 03-12-2022 End: 03-12-[address] Carline Escamilla Work Phone: [facility] Start: 01-01-2022 End: 01-01-[address] Carline Escamilla Work Phone: [facility]-Laboratory, Specimen Start: 12-31-2021 End: 12-31-[address] Carline Escamilla Work Phone: [facility] Start: 10-22-2021 End: 10-22-[address] Carline Escamilla Work Phone: [facility]-Outpatient Breast Imaging Start: 07-28-2021 End: 07-28-[address] Carline Escamilla Work Phone: [facility] Start: 07-28-2017 End: 08-12-[address] [facility] Procedures Date Procedure Procedure Detail Performing Clinician Start: 03-31-2023 Plain X-ray of shoulder Dr. Carline fuentes Work Phone: Start: 10-26-2022 Dual energy X-ray absorptiometry Start: 10-26-2022 Screening mammography Start: 10-22-[address] Carline stokes Work Phone: Start: 03-11-2017 End: 03-11-2017 Fine needle aspiration with imaging guidance Rob Veronica MD Work Phone: Start: 08-12-2016 End: 08-12-2016 *CMP Complete Metabolic Panel Ismael Cordero DO Start: 08-12-2016 Screening for osteoporosis Screening for osteoporosis Rob Veronica MD Start: 08-12-2016 End: 08-12-2016 *CMP Complete Metabolic Panel Ismaelluis enrique Cordero DO Start: 08-12-2016 Screening for osteoporosis Screening for osteoporosis Erica Ramos Start: 05-04-2016 End: 05-04-2016 MARY Morales MD Start: 05-04-2016 End: 05-28-2016 Echocardiography Dimitri Morales MD Start: 05-04-2016 End: 05-04-2016 Follow Up Appt 1 year Dimitri Morales MD Start: 05-04-2016 End: 05-04-2016 MARY Morales MD Start: 05-04-2016 End: 05-28-2016 Echocardiography Dimitri Morales MD Start: 05-04-2016 End: 05-04-2016 Follow Up Appt 1 year Dimitri Morales MD Start: 01-29-2016 Screening mammography Mammogram yearly screening Rob Veronica MD Start: 01-29-2016 Screening mammography Mammogram yearly screening Erica Ramos Start: 07-22-2015 End: 07-22-2015 *CMP Complete Metabolic Panel Cecilia Mata Work Phone: Start: 07-22-2015 End: 07-22-2015 Lactate dehydrogenase [Enzymatic activity/volume] in Serum or Plasma Cecilia Mata Work Phone: Start: 07-22-2015 End: 07-22-2015 Urate [Mass/volume] in Serum or Plasma Cecilia Mata Work Phone: Start: 07-22-2015 End: 07-22-2015 *CMP Complete Metabolic Panel Cecilia Mata Work Phone: Start: 07-22-2015 End: 07-22-2015 Lactate dehydrogenase (LDH) Cecilia bee Work Phone: Start: 07-22-2015 End: 07-22-2015 Uryou Mata Work Phone: Start: 11-08-2014 End: 11-08-2014 MARY Morales MD Start: 11-08-2014 End: 11-09-2014 Documentation of current medications Dimitri Morales MD Start: 11-08-2014 End: 11-08-2014 Follow Up Appt 1 year Dimitri Morales MD Start: 11-08-2014 End: 11-08-2014 MARY Morales MD Start: 11-08-2014 End: 11-09-2014 Documentation of current medications Dimitri Morales MD Start: 11-08-2014 End: 11-08-2014 Follow Up Appt 1 year Dimitri Morales MD Start: 07-25-2014 End: 07-25-2014 *Hepatic Function Panel Cecilia Mata Work Phone: Start: 07-25-2014 End: 07-25-2014 Calcium [Mass/volume] in Serum or Plasma Cecilia Mata Work Phone: Start: 07-25-2014 End: 07-25-2014 *Hepatic Function Panel Cecilia Mata Work Phone: Start: 07-25-2014 End: 07-25-2014 Calcium Cecilia Mata Work Phone: Start: 10-23-2013 End: 10-23-2013 MARY Morales MD Start: 10-23-2013 End: 10-23-2013 Follow Up Appt 1 year Dimitri Morales MD Start: 10-23-2013 End: 10-23-2013 MARY Morales MD Start: 10-23-2013 End: 10-23-2013 Follow Up Appt 1 year Dimitri Morales MD Start: 09-19-2012 End: 09-19-2012 MARY Morales MD Start: 09-19-2012 End: 09-19-2012 eRx Transmitted during this visit (Medicare only) Dimitri Morales MD Start: 09-19-2012 End: 09-19-2012 Follow Up Appt 1 year Dimitri Morales MD Start: 09-19-2012 End: 09-19-2012 MARY Morales MD Start: 09-19-2012 End: 09-19-2012 eRx Transmitted during this visit (Medicare only) Dimitri Morales MD Start: 09-19-2012 End: 09-19-2012 Follow Up Appt 1 year Dimitri Morales MD Start: 09-16-2011 End: 09-16-2011 Follow Up Appt 1 year Dimitri Morales MD Start: 09-16-2011 End: 09-16-2011 Follow Up Appt 1 year Dimitri Morales MD Plan of Treatment Date Care Activity Detail Author Start: 03-31-2023 Patient referral [facility] Work Phone: Start: 05-05-2017 End: 05-05-2017 Appointment Appointment [facility] Work Phone: Start: 05-05-2017 End: 05-05-2017 Appointment Appointment [facility] Work Phone: Start: 03-11-2017 End: 03-11-2017 Appointment Appointment [facility] Work Phone: Start: 03-04-2017 End: 03-04-2017 Appointment Appointment [facility] Work Phone: Start: 02-22-2017 End: 02-23-2017 Us soft tissue head & neck real time imge docm US Thyroid (Soft tissue neck) [facility] Work Phone: Start: 02-22-2017 End: 02-23-2017 Us soft tissue head & neck real time imge docm US Thyroid (Soft tissue neck) [facility] Work Phone: Start: 02-10-2017 End: 02-10-2017 Appointment Appointment [facility] Work Phone: Start: 10-13-2016 End: 10-13-2016 Physical Therapy General Physical Therapy [facility], [address] [place] [address], [id number] [facility] Work Phone: Start: 10-13-2016 End: 10-13-2016 Physical Therapy General Physical Therapy [facility], [address] [place] [address], [id number] [facility] Work Phone: Start: 10-07-2016 End: 10-07-2016 Radex spine lumbosacral minimum 4 views X-Ray, Spine, Lumbosacral 2-[address] [facility] Work Phone: Start: 10-07-2016 End: 10-07-2016 Appointment Appointment [facility] Work Phone: Start: 10-07-2016 End: 10-07-2016 X-ray exam of lower spine X-Ray, Spine, Lumbosacral 2-3 views [facility] Work Phone: Start: 08-16-2016 End: 08-12-2016 Bone density scan Bone Density Study [facility] Work Phone: Start: 08-16-2016 End: 08-12-2016 Bone density scan Bone Density Study [facility] Work Phone: Start: 08-12-2016 End: 01-29-2016 *CBC with Differential *CBC with Differential [facility] Work Phone: Start: 08-12-2016 End: 08-12-2016 *CMP Complete Metabolic Panel *CMP Complete Metabolic Panel [facility] Work Phone: Start: 08-12-2016 End: 01-29-2016 *CBC with Differential *CBC with Differential [facility] Work Phone: Start: 08-12-2016 End: 08-12-2016 *CMP Complete Metabolic Panel *CMP Complete Metabolic Panel [facility] Work Phone: Start: 07-26-2016 End: 01-29-2016 Mammogram, screening Mammogram-Bilateral, Screening, Bilateral [facility] Work Phone: Start: 07-26-2016 End: 01-29-2016 Mammogram, screening Mammogram-Bilateral, Screening, Bilateral [facility] Work Phone: Start: 05-04-2016 End: 05-04-2016 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 Work Phone: Start: 05-04-2016 End: 05-04-2016 Echocardiography Echocardiogram (complete) [facility] Work Phone: Start: 05-04-2016 End: 05-04-2016 Follow Up Appt 1 year Follow Up Appt 1 year [facility] Work Phone: Start: 05-04-2016 End: 05-04-2016 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 [facility] Work Phone: Start: 05-04-2016 End: 05-04-2016 Echocardiography Echocardiogram (complete) [facility] Work Phone: Start: 05-04-2016 End: 05-04-2016 Follow Up Appt 1 year Follow Up Appt 1 year [facility] Work Phone: Start: 01-27-2016 End: 08-01-2015 *CBC with Differential *CBC with Differential [facility] Work Phone: Start: 01-27-2016 End: 08-01-2015 *CMP Complete Metabolic Panel *CMP Complete Metabolic Panel [facility] Work Phone: Start: 01-27-2016 End: 08-01-2015 Calcium *Calcium, Total [facility] Work Phone: Start: 01-27-2016 End: 08-01-2015 *CBC with Differential *CBC with Differential [facility] Work Phone: Start: 01-27-2016 End: 08-01-2015 *CMP Complete Metabolic Panel *CMP Complete Metabolic Panel [facility] Work Phone: Start: 01-27-2016 End: 08-01-2015 Calcium *Calcium, Total [facility] Work Phone: Start: 11-04-2015 End: 11-04-2015 [facility] Work Phone: Start: 11-04-2015 End: 11-04-2015 Follow Up Appt 6 months Follow Up Appt 6 months [facility] Work Phone: Start: 11-04-2015 End: 11-04-2015 [facility] Work Phone: Start: 11-04-2015 End: 11-04-2015 Follow Up Appt 6 months Follow Up Appt 6 months [facility] Work Phone: Start: 07-24-2015 End: 01-27-2015 *CBC with Differential *CBC with Differential [facility] Work Phone: Start: 07-24-2015 End: 07-22-2015 *CMP Complete Metabolic Panel *CMP Complete Metabolic Panel [facility] Work Phone: Start: 07-24-2015 End: 01-27-2015 Calcium *Calcium, Total [facility] Work Phone: Start: 07-24-2015 End: 07-22-2015 Lactate dehydrogenase (LDH) *LDH -LDH (Lactate Dehydrogenase) [facility] Work Phone: Start: 07-24-2015 End: 07-22-2015 Urate *Uric Acid Blood [facility] Work Phone: Start: 07-24-2015 End: 01-27-2015 *CBC with Differential *CBC with Differential [facility] Work Phone: Start: 07-24-2015 End: 07-22-2015 *CMP Complete Metabolic Panel *CMP Complete Metabolic Panel [facility] Work Phone: Start: 07-24-2015 End: 01-27-2015 Calcium *Calcium, Total [facility] Work Phone: Start: 07-24-2015 End: 07-22-2015 Lactate dehydrogenase (LDH) *LDH -LDH (Lactate Dehydrogenase) [facility] Work Phone: Start: 07-24-2015 End: 07-22-2015 Urate *Uric Acid Blood [facility] Work Phone: Start: 11-08-2014 End: 11-08-2014 [facility] Work Phone: Start: 11-08-2014 End: 11-08-2014 Follow Up Appt 1 year Follow Up Appt 1 year [facility] Work Phone: Start: 11-08-2014 End: 11-08-2014 [facility] Work Phone: Start: 11-08-2014 End: 11-08-2014 Follow Up Appt 1 year Follow Up Appt 1 year [facility] Work Phone: Start: 07-25-2014 End: 07-16-2014 *CBC with Differential *CBC with Differential [facility] Work Phone: Start: 07-25-2014 End: 07-25-2014 *Hepatic Function Panel *Hepatic Function Panel [facility] Work Phone: Start: 07-25-2014 End: 07-25-2014 Calcium *Calcium, Total [facility] Work Phone: Start: 07-25-2014 End: 07-16-2014 *CBC with Differential *CBC with Differential [facility] Work Phone: Start: 07-25-2014 End: 07-25-2014 *Hepatic Function Panel *Hepatic Function Panel [facility] Work Phone: Start: 07-25-2014 End: 07-25-2014 Calcium *Calcium, Total [facility] Work Phone: Start: 10-23-2013 End: 10-23-2013 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 Work Phone: Start: 10-23-2013 End: 10-23-2013 Follow Up Appt 1 year Follow Up Appt 1 year [facility] Work Phone: Start: 10-23-2013 End: 10-23-2013 [facility] Work Phone: Start: 10-23-2013 End: 10-23-2013 Follow Up Appt 1 year Follow Up Appt 1 year [facility] Work Phone: Start: 09-19-2012 End: 09-19-2012 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 Work Phone: Start: 09-19-2012 End: 09-19-2012 Follow Up Appt 1 year Follow Up Appt 1 year [facility] Work Phone: Start: 09-19-2012 End: 09-19-2012 [facility] Work Phone: Start: 09-19-2012 End: 09-19-2012 Follow Up Appt 1 year Follow Up Appt 1 year [facility] Work Phone: Start: 09-16-2011 End: 09-16-2011 Follow Up Appt 1 year Follow Up Appt 1 year [facility] Work Phone: Start: 09-16-2011 End: 09-16-2011 Follow Up Appt 1 year Follow Up Appt 1 year [facility] Work Phone: Patient Education Letrozole%20(O ral)%20(Ta blet) [facility] Work Phone: Patient referral [facility] Work Phone: Immunizations Immunization Date Immunization Notes Care Provider [facility] 09-11-2020 Cov[employer] (Modern) Dr. Zhanna Escamilla Work Phone: [facility] 08-14-2020 [employer]) Dr. Zhanna Escamilla Work Phone: [facility] Payers Date Payer Category Payer Self-pay [id number] 2023 Medicare [id number] 2016 Unknown [id number] 2012 Medicare [id number] Unknown [id number] Unknown [id number] Unknown [id number] Social History Date Type Detail Facility Start: 07-28-2021 End: 03-31-2023 Tobacco smoking status NHIS Unknown if ever smoked [facility] Start: 10-25-2019 Non-smoker [facility] Start: 1945 Sex Assigned At Female [facility] Evaluation note Note Date & Type Note Facility Evaluation note Diagnosis Onset Date 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 chronic [facility] Work Phone: Evaluation note Note Date & Type Note Facility Evaluation note Diagnosis Onset Date Upper respiratory infection noneactive [facility] Work Phone: Evaluation note Note Date & Type Note Facility Evaluation note Diagnosis Onset Date Upper respiratory infection noneactive Health care maintenance acut e Essential (primary) hypertension chronic Hyperlipidemia chronic Hypothyroidism chronic [facility] Work Phone: Evaluation note Note Date & Type Note Facility Evaluation note No assessment information availa ble [facility] Work Phone: Evaluation note Note Date & Type Note Facility Evaluation note Diagnosis Onset Date Health care maintenance acut e Left shoulder pain acute Essential (primary) hypertension chronic Hyperlipidemia chronic Hypothyroidism [facility] Work Phone: Summary Purpose Family History No Family History Records Found Relationship Condition Age at Onset Recorded Date/T souleymane mother Cerebrovascular accident (CVA) Unknown Diabetes mellitus Unknown father Dementia Unknown brother Hypertension Unknown Cardiac disease Unknown Advance Directives No Advanced Directives Records FoundNo Advanced Directives Records Found Chief Complaint and Reason for Visit 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 Reason for Visit Cancer of right fema le breast Chief Complaint SCREENING COUGH, RUNNY NOSE, COVID TEST Reason for Visit Upper respiratory in fection Chief Complaint COUGH, RUNNY NOSE, C OVID TEST 1 Y FU Reason for Visit Upper respiratory in fection Health care maintenance Essential (primary) hypertension Hyperlipidemia Hypothyroidism Chief Complaint POSTMENOPAUSAL Chief Complaint YEARLY- MED CHECK ADD XRAY LEFT SHOULDER Reason for Visit Health care maintena nce Left shoulder pain Essential (primary) hypertension Hyperlipidemia Hypothyroidism Chief Complaint YEARLY- MED CHECK ADD XRAY LEFT SHOULDER LT SHLD PAIN/RX HERE Reason for Visit Health care maintena nce Left shoulder pain Essential (primary) hypertension Hyperlipidemia Hypothyroidism Additional Source Comments INFORMATION SOURCE (unrecogn ized section and content) DATE CREATED AUTHOR 11/18/2017 [facility] DATE CREATED AUTHOR AUTHOR'S ORGANIZ ATION 11/12/2024 [facility] Goals (unrecognized section and content) Goals may be documented in a n alternate sectionGoals may be documented in an alternate sectionGoals may be documented in an alternate sectionGoals may be documented in an alternate sectionGoals may be documented in an alternate sectionGoals may be documented in an alternate section Care Teams (unrecognized sec tion and content) Team Status: Active Member Role Status Dates Dr. Ad Kahn MD Family Provider Active Dr. Carline Escamilla MD Primary Care Provider Active Team Status: Inactive Member Role Status Dates Dr. Carline Escamilla MD Primary Care Provider Active Vanda So ACCOUNTING CLERK, ACCOUNTING CLERK-C Attending Provider, Referring Provider Active Team Status: Inactive Member Role Status Dates Dr. Carline Escamilla MD Primary Care P suhas, Attending Provider, Referring Provider Active FOR RECORDS PERTAINING TO PATIENTS WHO ARE OR HAVE BEEN ENROLLED IN A CHEMICAL DEPENDENCY/SUBSTANCEABUSE PROGRAM, SOME INFORMATION MAY BE OMITTED. This clinical summary was aggregated from multiple sources. Caution should be exercised in using it in the provision of clinical care. This summary normalizes information from multiple sources, and as a consequence, information in this document may materially change the coding, format and clinical context of patient data. In addition, data may be omitted in some cases. CLINICAL DECISIONS SHOULD BE BASED ON THE PRIMARY CLINICAL RECORDS. [employer] provides no warranty or guarantee of the accuracy or completeness of information in this document.
== END | disposition home or self-care (01) ==
PROVIDERS: PCP Internal Medicine; Referring Provider Nurse Practitioner Women's Health; Visit Provider Nurse Practitioner Women's Health
DX: Z12.31 Encounter for screening mammogram for malignant neoplasm of breast (principal)
CPT/HCPCS: 77063; 77067

== ENCOUNTER → 2025-04-03 | Outpatient (CLI) | payer MEDICARE, SELFPAY ==
[2025-04-03 12:34] LABS: Hematocrit 41.7 % (37-47); Hemoglobin 13.8 g/dL (12.0-15.0); Immature Granulocytes Count 0.010 X10^3/uL (0.0-0.0); Mean Corp Hgb Conc 33.1 g/dL (32-36); Mean Corpuscular Volume 92.1 fL (81-99); Mean Platelet Vol. 9.7 fl (6.2-12.0); NRBC Flagged by Analyzer 0 % (0-5); Platelet Count 261 K/mm3 (150-450); RBC Distribution Width CV 12.4 % (11.6-14.6); RBC Distribution Width SD 42.4 fl (35.1-43.9); Red Blood Count 4.53 M/mm3 (4.2-5.4); White Blood Count 4.7 K/mm3 (4.4-11.0)
[2025-04-03 13:20] LABS: AST(SGOT) 30 U/L (<=31); Alanine Aminotransfer ALT/SGPT 28 U/L (<=34); Albumin, Serum 4.2 g/dL (3.4-4.8); Alkaline Phosphatase 86 U/L (35-104); Anion Gap 9 (5-15); BUN 15 mg/dL (4-19); BUN/Creat Ratio 20.2 RATIO (10-20); Calcium,Total 9.6 mg/dL (7.6-11.0); Carbon Dioxide 27.9 mmol/L (21.0-32.0); Chloride 100 mmol/L (98-108); Cholesterol 233 mg/dL (<=200); Globulin 3.0 g/dL (2.2-4.2); Glucose 95 mg/dL (70-99); Low Density Lipoprotein Calc. 159 mg/dL; Potassium 4.6 mmol/L (3.3-5.1); Triglycerides 172 mg/dL; Very Low Density Lipoprotein 34 mg/dL (5-40); Vitamin D,25 Hydroxy 96.7 ng/mL (30-100); cholesterol:hdl ratio screen 5.43
== END | disposition home or self-care (01) ==
LOC: MTLAB 10:29
PROVIDERS: PCP Internal Medicine; Referring Provider Internal Medicine; Visit Provider Internal Medicine
DX: E03.9 Hypothyroidism, unspecified (principal); M85.80 Other specified disorders of bone density and structure, unspecified site
CPT/HCPCS: 36415; 80053; 80061; 82306; 84443; 85025

== ENCOUNTER → 2025-04-23 | Outpatient (CLI) | payer MEDICARE, SELFPAY ==
--- NOTE | 2025-04-23 09:30 | BD_ITS ---
PROCEDURE: DEXA BONE DENSITY STUDY 04/23/2025 REASON FOR EXAM: SCREENING F, age 79 y/o . Postmenopausal. TECHNIQUE: Procedure Code: BDDBD Modality: DX Procedure: DEXA BONE DENSITY STUDY COMPARISON: DEXA examination dated 10/26/2022 FINDINGS: BMD and T-SCORES Lumbar spine: 1.028 g/cm2, T-score -0.2 Levels: L1 through L4 There has been a significant decrease in the bone mineral density of the lumbar spine by 3.3% since the prior study dated 10/26/2022 Left femoral neck: 0.756 g/cm2, T-score -0.8 Left total hip: 0.832 g/cm2, T-score -0.9 Change from prior: There has been a decrease in the bone mineral density of the left hip by 1.7% since the prior study dated 10/26/2022.. Right femoral neck: 0.706 g/cm2, T-score -1.3 Right total hip: 0.845 g/cm2, T-score -0.8 Change from prior: There has been a decrease in the bone mineral density of the right hip by 1.9% since the prior study dated 10/26/2022. The World Health Organization has defined the following categories based on bone density: Normal bone density: T-score equal to or greater than -1.0 Osteopenia: T-score between -1.0 and -2.5 Osteoporosis: T-score equal to or less than -2.5 FRAX (or Comparable) Fracture Risk Assessment: 10 Year Probability of Fracture: Major Osteoporotic Fracture: 27% Hip Fracture: 13% (Note: FRAX is not to be reported in setting of normal range bone density, osteoporosis on DEXA, known history of osteoporosis, prior osteoporotic hip or vertebral fracture, or for any patient undergoing pharmacological treatment for bone loss.) The National Osteoporosis Foundation (NOF) recommends pharmacological treatment for patients with a FRAX 10-year risk of 3% or higher for a hip fracture, or 20% or higher for a major osteoporotic fracture, to prevent osteoporosis and reduce fracture risk. The patient does not meet the pharmacological treatment recommendations for prevention of osteoporosis. BD/Dexa Bone Density Study IMPRESSION: OSTEOPENIA. Recommend follow-up as clinically warranted. Reading Location: [id number]
== END | disposition home or self-care (01) ==
LOC: OPBD 09:20
PROVIDERS: PCP Internal Medicine; Referring Provider Internal Medicine; Visit Provider Internal Medicine
DX: Z13.820 Encounter for screening for osteoporosis (principal); M85.80 Other specified disorders of bone density and structure, unspecified site; Z78.0 Asymptomatic menopausal state
CPT/HCPCS: 77080